=== PATIENT | female | born 1940 | race Caucasian/White ===

== ENCOUNTER 2017-10-04 16:38 | Inpatient (IN) | payer MEDICARE ==
[2017-10-04] MEDS ORDERED: LORazepam 2 MG/ML INJ IV PRN ×2 (16:49)
[2017-10-04] MEDS ORDERED: IPRATROPIUM-ALBUTEROL 3 ML NEB INHALATION STA (16:49)
[2017-10-04] MEDS ORDERED: IPRATROPIUM-ALBUTEROL 3 ML NEB INHALATION PRN (16:49)
[2017-10-04] MEDS ORDERED: MIDAZOLAM 2 MG/2 ML VIAL IV ONE (16:58)
[2017-10-04] MEDS ORDERED: SUCCINYLCHOLINE CHLORIDE VIAL 200 MG/10 ML VIAL IV STA (16:58)
[2017-10-04] MEDS ORDERED: PROPOFOL 1,000 MG in EMPTY BAG 1 BAG IV SCH (17:00)
--- NOTE | 2017-10-04 17:01 | ED ---
General Adult HPI - General Stated complaint: SOB Time Seen by Provider: 10/04/17 16:49 Source: EMS, RN notes reviewed Mode of arrival: EMS Limitations: altered mental status, physical limitation - History of Present Illness Initial comments: Patient is a 77-year-old female presenting to the emergency department by EMS as a priority 1. Patient complain to them of difficulty breathing over the past couple of days but worse today. Patient is on CPAP at this time. Patient is nonverbal and unable to provide no skin history. Patient denies any pain. Patient appears cyanotic and in respiratory distress. - Related Data Home Medications Medication Instructions Recorded Confirmed Albuterol Sulfate [Ventolin HFA] 2 puff INHALATION RT-TID PRN 06/02/15 10/04/17 Calcium Carb-Vit D 500Mg-200Un 1 tab PO DAILY 06/02/15 10/04/17 [Oscal 500+D] Levothyroxine Sodium [Synthroid] 175 mcg PO DAILY 06/02/15 10/04/17 Lisinopril/Hydrochlorothiazide 1 tab PO DAILY 06/02/15 10/04/17 [Lisinopril-Hctz 10-12.5 mg Tab] metFORMIN HCL [Glucophage] 500 mg PO TID 06/02/15 10/04/17 Allopurinol [Zyloprim] 100 mg PO DAILY 10/04/17 10/04/17 Clopidogrel [Plavix] 75 mg PO DAILY 10/04/17 10/04/17 Glimepiride [Amaryl] 4 mg PO AC-BRKFST 10/04/17 10/04/17 Previous Rx's Medication Instructions Recorded Amiodarone [Cordarone] 200 mg PO BID #60 tab 07/31/15 Allergies Allergy/AdvReac Type Severity Reaction Status Date / Time Iodinated Contrast- Oral and Allergy Rash/Hives Verified 10/04/17 18:30 IV Dye [Iodinated Contrast Media - IV Dye] iron AdvReac constipatio Verified 10/04/17 18:30 n methylprednisolone sodium AdvReac Chest Pain Verified 10/04/17 18:30 succinate [From Solu-Medrol] Review of Systems ROS Statement: Those systems with pertinent positive or pertinent negative responses have been documented in the HPI. ROS Other: All systems not noted in ROS Statement are negative. Limitations: ROS unobtainable due to patients medical condition Respiratory: Reports: dyspnea Cardiovascular: Denies: chest pain Past Medical History Past Medical History: Heart Failure, COPD, Diabetes Mellitus, Hyperlipidemia, Pneumonia, Thyroid Disorder History of Any Multi-Drug Resistant Organisms: None Reported Past Surgical History: Unable to Obtain Additional Past Surgical History / Comment(s): Left breast masectomy, Right knee replacement, Past Anesthesia/Blood Transfusion Reactions: No Reported Reaction Past Psychological History: No Psychological Hx Reported Smoking Status: Former smoker Past Alcohol Use History: None Reported Past Drug Use History: None Reported - Past Family History Brother(s) Family Medical History: Cancer Additional Family Medical History / Comment(s): Lung CA Sister(s) Family Medical History: Cancer, Myocardial Infarction ([place]) Additional Family Medical History / Comment(s): breast CA, gastric CA General Exam Limitations: altered mental status, physical limitation General appearance: in distress, obese Head exam: Present: atraumatic Eye exam: Present: normal appearance ENT exam: Present: normal oropharynx Neck exam: Present: normal inspection Respiratory exam: Present: respiratory distress, decreased breath sounds Cardiovascular Exam: Present: tachycardia GI/Abdominal exam: Present: soft. Absent: tenderness Extremities exam: Present: pedal edema. Absent: calf tenderness Neurological exam: Present: alert Psychiatric exam: Present: anxious Skin exam: Present: cyanosis Course Vital Signs 10/04/17 10/04/17 10/04/17 16:41 17:01 17:05 Temperature 96.7 F L Pulse Rate 116 H 125 H 108 H Respiratory 18 18 Rate Blood Pressure 152/74 101/57 O2 Sat by Pulse 56 L 99 Oximetry 10/04/17 10/04/17 17:34 18:16 Temperature Pulse Rate 96 94 Respiratory 18 18 Rate Blood Pressure 96/58 117/62 O2 Sat by Pulse 99 100 Oximetry - Reevaluation(s) Reevaluation #1: 10/04/17 17:51 Patient reevaluated. Friend is present and is updated. Friend will notify daughter. Endotracheal tube will be withdrawn 1 cm. 10/04/17 18:05 Family is now present. Family is updated. Family states patient was being evaluated for a valve problem. They would like her manufacturing engineer supervisor notified and he states has been placed for Dr. Caldwell 10/04/17 18:24 Case was discussed with Dr. Cabral who is covering for Dr. Wilson. He did review patient's previous echo and states patient does have severe mitral valve stenosis. He recommends keeping heart rate down for diastolic filling pressures. He does recommend treating patient aggressively with beta blockers. Previous ejection fraction was 60%. 10/04/17 18:41 Case was discussed with Dr. Walsh, who will admit for hospital call. Family states patient no longer sees Dr. Reyes. Case was discussed with Dr. Medina who will consult on this patient. He has previously seen this patient. Patient was reevaluated. Family was updated. EKG Findings - EKG Comments: EKG Findings:: Sinus tachycardia 102. AL 182. QRS 90. QT 386. QTc 503. Normal axis. Normal QRS. No acute ST change. Procedures - ABG Interpretation Ph: 7.24 PCO2: 72.1 PO2: 306 Bicarbonate: 29 Interpretation: respiratory acidosis Medical Decision Making - Lab Data Result diagrams: 10/04/17 16:48 10/04/17 16:48 Lab Results 10/04/17 10/04/17 10/04/17 Range/Units 16:48 16:48 16:48 WBC 18.1 H (3.8-10.6) k/uL RBC 4.19 (3.80-5.40) m/uL Hgb 12.3 (11.4-16.0) gm/dL Hct 41.7 (34.0-46.0) % MCV 99.6 (80.0-100.0) fL MCH 29.4 (25.0-35.0) pg MCHC 29.5 L (31.0-37.0) g/dL RDW 16.4 H (11.5-15.5) % Plt Count 359 (150-450) k/uL Neutrophils % 65 % Lymphocytes % 24 % Monocytes % 6 % Eosinophils % 2 % Basophils % 1 % Neutrophils # 11.8 H (1.3-7.7) k/uL Lymphocytes # 4.3 (1.0-4.8) k/uL Monocytes # 1.1 H (0-1.0) k/uL Eosinophils # 0.4 (0-0.7) k/uL Basophils # 0.2 (0-0.2) k/uL Hypochromasia Marked Anisocytosis Slight Macrocytosis Slight PT (9.0-12.0) sec INR (<1.2) APTT (22.0-30.0) sec Sample Site ABG pH (7.35-7.45) ABG pCO2 (35-45) mmHg ABG pO2 (83-108) mmHg ABG HCO3 (21-25) mmol/L ABG Total CO2 (19-24) mmol/L ABG O2 Saturation (94-97) % ABG Base Excess mmol/L Jun Test FiO2 % Sodium 144 (137-145) mmol/L Potassium 5.2 H (3.5-5.1) mmol/L Chloride 104 (98-107) mmol/L Carbon Dioxide 28 (22-30) mmol/L Anion Gap 12 mmol/L BUN 22 H (7-17) mg/dL Creatinine 1.15 H (0.52-1.04) mg/dL Est GFR (MDRD) Af Amer 56 (>60 ml/min/1.73 sqM) Est GFR (MDRD) Non-Af 46 (>60 ml/min/1.73 sqM) Glucose 207 H (74-99) mg/dL Calcium 9.3 (8.4-10.2) mg/dL Total Bilirubin 0.7 (0.2-1.3) mg/dL AST 30 (14-36) U/L ALT 33 (9-52) U/L Alkaline Phosphatase 68 (38-126) U/L Total Creatine Kinase 40 (30-135) U/L CK-MB (CK-2) 0.9 (0.0-2.4) ng/mL CK-MB (CK-2) Rel Index 2.3 Troponin I <0.012 (0.000-0.034) ng/mL NT-Pro-B Natriuret Pep pg/mL Total Protein 7.5 (6.3-8.2) g/dL Albumin 4.2 (3.5-5.0) g/dL 10/04/17 10/04/17 10/04/17 Range/Units 16:48 16:48 17:44 WBC (3.8-10.6) k/uL RBC (3.80-5.40) m/uL Hgb (11.4-16.0) gm/dL Hct (34.0-46.0) % MCV (80.0-100.0) fL MCH (25.0-35.0) pg MCHC (31.0-37.0) g/dL RDW (11.5-15.5) % Plt Count (150-450) k/uL Neutrophils % % Lymphocytes % % Monocytes % % Eosinophils % % Basophils % % Neutrophils # (1.3-7.7) k/uL Lymphocytes # (1.0-4.8) k/uL Monocytes # (0-1.0) k/uL Eosinophils # (0-0.7) k/uL Basophils # (0-0.2) k/uL Hypochromasia Anisocytosis Macrocytosis PT 11.2 (9.0-12.0) sec INR 1.2 H (<1.2) APTT 23.4 (22.0-30.0) sec Sample Site LBRAC ABG pH 7.24 L (7.35-7.45) ABG pCO2 72 H* (35-45) mmHg ABG pO2 306 H (83-108) mmHg ABG HCO3 30 H (21-25) mmol/L ABG Total CO2 32 H (19-24) mmol/L ABG O2 Saturation 100.0 H (94-97) % ABG Base Excess 2.7 mmol/L Jun Test Yes FiO2 100 % Sodium (137-145) mmol/L Potassium (3.5-5.1) mmol/L Chloride (98-107) mmol/L Carbon Dioxide (22-30) mmol/L Anion Gap mmol/L BUN (7-17) mg/dL Creatinine (0.52-1.04) mg/dL Est GFR (MDRD) Af Amer (>60 ml/min/1.73 sqM) Est GFR (MDRD) Non-Af (>60 ml/min/1.73 sqM) Glucose (74-99) mg/dL Calcium (8.4-10.2) mg/dL Total Bilirubin (0.2-1.3) mg/dL AST (14-36) U/L ALT (9-52) U/L Alkaline Phosphatase (38-126) U/L Total Creatine Kinase (30-135) U/L CK-MB (CK-2) (0.0-2.4) ng/mL CK-MB (CK-2) Rel Index Troponin I (0.000-0.034) ng/mL NT-Pro-B Natriuret Pep 1010 pg/mL Total Protein (6.3-8.2) g/dL Albumin (3.5-5.0) g/dL - Radiology Data Radiology results: image reviewed (Stray shows pulmonary edema. Endotracheal tube is somewhat low.) Critical Care Time Critical Care Time: Yes Total Critical Care Time: 40 Disposition Clinical Impression: Severe mitral valve stenosis, Acute exacerbation of chronic obstructive airways disease, Acute respiratory failure, Pulmonary edema Disposition: ADMITTED IP TO [facility] Condition: Critical Referrals: Nonstaff,Physician [Primary Care Provider] - 1-2 days Decision Time: 18:42
[2017-10-04] MEDS: PROPOFOL 1,000 MG in EMPTY BAG 1 BAG IV SCH ×2 (17:10→22:27)
--- NOTE | 2017-10-04 17:31 | XR ---
EXAMINATION TYPE: XR chest 1V portable DATE OF EXAM: 10/04/2017 COMPARISON: 07/28/2015 HISTORY: Post intubation TECHNIQUE: Single frontal view of the chest is obtained. FINDINGS: Endotracheal tube is slightly low and measures 2.5 cm from the eladio. Pulmonary interstit ial and alveolar edema. Heart is probably enlarged. There are chest leads. IMPRESSION: Endotracheal tube is low and could be pulled back 1 to 2 cm. There is new pulmonary kelechi a compared to last exam.
[2017-10-04 17:49] LABS: Anisocytosis Slight; Basophils # (A) 0.2 k/uL (0-0.2); Basophils % (A) 1 %; Eosinophils # (A) 0.4 k/uL (0-0.7); Eosinophils % (A) 2 %; HCT 41.7 % (34.0-46.0); HGB 12.3 gm/dL (11.4-16.0); Hypochromasia Marked; Lymphocytes # (A) 4.3 k/uL (1.0-4.8); Lymphocytes % (A) 24 %; MCH 29.4 pg (25.0-35.0); MCHC 29.5 g/dL (31.0-37.0); MCV 99.6 fL (80.0-100.0); Macrocytosis Slight; Mean Platelet Volume 7.8; Monocytes # (A) 1.1 k/uL (0-1.0); Monocytes % (A) 6 %; Neutrophils # (A) 11.8 k/uL (1.3-7.7); Neutrophils % (A) 65 %; Platelet Count 359 k/uL (150-450); RBC 4.19 m/uL (3.80-5.40); RDW 16.4 % (11.5-15.5); WBC 18.1 k/uL (3.8-10.6)
[2017-10-04] MEDS ORDERED: FUROSEMIDE 10 MG/ML 2 ML VIAL IV ONE (17:53)
[2017-10-04 17:55] LABS: Albumin 4.2 g/dL (3.5-5.0); Calcium 9.3 mg/dL (8.4-10.2); Total Bilirubin 0.7 mg/dL (0.2-1.3); Total Protein 7.5 g/dL (6.3-8.2)
[2017-10-04 17:56] LABS: INR 1.2 (<1.2); Partial Thromboplastin Time 23.4 sec (22.0-30.0); Potassium 5.2 mmol/L (3.5-5.1); Prothrombin Time 11.2 sec (9.0-12.0)
[2017-10-04 17:57] LABS: ABG Base Excess 2.7 mmol/L; ABG HCO3 30 mmol/L (21-25); ABG PCO2 72 mmHg (35-45); ABG PH 7.24 (7.35-7.45); ABG PO2 306 mmHg (83-108); ABG TCO2 32 mmol/L (19-24)
[2017-10-04 18:00] LABS: Creatine Kinase 40 U/L (30-135)
[2017-10-04 18:11] LABS: Creatine Kinase MB 0.9 ng/mL (0.0-2.4); Troponin I <0.012 ng/mL (0.000-0.034)
[2017-10-04] MEDS ORDERED: NALOXONE 0.4 MG/ML 1 ML VIAL IV PRN ×2 (18:42→21:16)
[2017-10-04] MEDS ORDERED: ASPIRIN 325 MG TAB PO STA (18:45)
[2017-10-04] MEDS: SODIUM CHLORIDE 0.9% 1,000 ML IV SCH (19:25)
[2017-10-04] MEDS: METOPROLOL TARTRATE 50 MG TAB PO SCH (19:25)
[2017-10-04 19:52] LABS: Appearance,Urine Cloudy (Clear); Bacteria,Urine Many /hpf; Bilirubin,Urine Negative (Negative); Blood,Urine Negative (Negative); Color,Urine Yellow; Glucose,Urine (UA) Negative (Negative); Ketones,Urine Trace (Negative); Leukocyte Esterase,Urine Moderate (Negative); Mucus,Urine Many /hpf; Nitrite,Urine Negative (Negative); PH, Urine 5.5 (5.0-8.0); Protein,Urine 1+ (Negative); Specific Gravity,Urine 1.019 (1.001-1.035); Urobilinogen,Urine <2.0 mg/dL (<2.0); WBC,Urine 3 /hpf (0-5)
[2017-10-04] MEDS: NITROGLYCERIN OINT 1 INCH/GM PACKET TOPICAL SCH (20:34)
[2017-10-04] MEDS: IPRATROPIUM-ALBUTEROL 3 ML NEB INHALATION SCH ×2 (21:02→22:59)
[2017-10-04] MEDS ORDERED: ARTIFICIAL TEARS OINTMENT 3.5 GM TUBE BOTH EYES PRN (21:16)
[2017-10-04] MEDS ORDERED: ACETAMINOPHEN TAB 325 MG TAB OG-TUBE PRN (21:16)
[2017-10-04] MEDS ORDERED: INSULIN ASPART 100 UNIT/ML 1 ML 10 ML VIAL SQ SCH (21:30)
[2017-10-04 21:37] LABS: Glucose,Whole Blood 160 mg/dL (75-99)
--- NOTE | 2017-10-04 21:45 | P.HPIM ---
History of Present Illness H&P Date: 10/04/17 (delayed charting seen at 0815pm) Chief Complaint: hypoxia Patient is a 77-year-old female with a history of diastolic congestive heart failure, pulmonary hypertension, and severe mitral stenosis along with COPD who presented to the hospital via EMS for shortness of breath. When she arrived via EMS her oxygen saturation was 56% on CPAP. She was immediately intubated. Laboratory analysis revealed a white blood cell count of 18.1. INR 1.2. Potassium 5.2. Her creatinine was 1.15 which appeared to be at baseline and glucose was slightly elevated at 207. Chest x-ray revealed diffuse pulmonary edema. Urinalysis was negative. ABG revealed hypercapnic respiratory failure. She was given a dose of Lasix, Nitro-Bid, and aspirin. Her family requested contacting her primary balance wheel arm burnisher Dr. Caldwell they were able to contact Dr. Crabtree who was on coverage for him who recommended maximizing beta johanna therapy. They also contacted Dr. Medina who was in agreement with admission to the ICU. Patient's daughter and granddaughter were at bedside. They were not there when patient called EMS. They report that she is having significant shortness of breath limiting her baseline activities worsening for the last 2 weeks. She has also had increasing lower extremity edema. She typically wears oxygen at home at 3.5 L but she has been turning it up to 5 L to help. She is only able to ambulate a short distance before becoming extremely winded. She has been sleeping in a recliner at home. She also has a chronic cough. They report that she is supposed to be going in for evaluation of possible mitral valve replacement due to severe mitral stenosis. They report she has not seen her balance wheel arm burnisher or primary care provider since things have been worsening in the last 2 weeks. They believe that there has been no acute changes in her medications. They would like her transferred to a hospital in Dr. Caldwell practices out of. We discussed that with her being recently intubated she is not stable enough for elective transfer at this point in time. They are in agreement with the plan to keep her here at this point. They do again reiterate that once she is stable they would like her transferred. Review of Systems Patient is currently intubated and therefore review of systems was unable to be obtained ROS unobtainable: due to endotracheal tube Past Medical History Past Medical History: Coronary Artery Disease (CAD), Heart Failure, COPD, Diabetes Mellitus, Hyperlipidemia, Pneumonia, Thyroid Disorder History of Any Multi-Drug Resistant Organisms: None Reported Additional Past Surgical History / Comment(s): Left breast masectomy, Right knee replacement, cardiac cath Past Anesthesia/Blood Transfusion Reactions: No Reported Reaction Date of Last Stent Placement:: Jul 2016 Past Psychological History: No Psychological Hx Reported Smoking Status: Former smoker Past Alcohol Use History: None Reported Past Drug Use History: None Reported Additional History: Just quit smoking 09/23/2017, lives alone, uses home O2 at 3.5-5L, uses a 4 wheeled walker - Past Family History Brother(s) Family Medical History: Cancer Additional Family Medical History / Comment(s): Lung CA Sister(s) Family Medical History: Cancer, Myocardial Infarction ([place]) Additional Family Medical History / Comment(s): breast CA, gastric CA Medications and Allergies Home Medications Medication Instructions Recorded Confirmed Type Albuterol Sulfate [Ventolin HFA] 2 puff INHALATION RT-TID PRN 06/02/15 10/04/17 History Calcium Carb-Vit D 500Mg-200Un 1 tab PO DAILY 06/02/15 10/04/17 History [Oscal 500+D] Levothyroxine Sodium [Synthroid] 175 mcg PO DAILY 06/02/15 10/04/17 History Lisinopril/Hydrochlorothiazide 1 tab PO DAILY 06/02/15 10/04/17 History [Lisinopril-Hctz 10-12.5 mg Tab] metFORMIN HCL [Glucophage] 500 mg PO TID 06/02/15 10/04/17 History Amiodarone [Cordarone] 200 mg PO BID #60 tab 07/31/15 10/04/17 Rx Allopurinol [Zyloprim] 100 mg PO DAILY 10/04/17 10/04/17 History Clopidogrel [Plavix] 75 mg PO DAILY 10/04/17 10/04/17 History Glimepiride [Amaryl] 4 mg PO AC-BRKFST 10/04/17 10/04/17 History Allergies Allergy/AdvReac Type Severity Reaction Status Date / Time Iodinated Contrast- Oral and Allergy Rash/Hives Verified 10/04/17 18:30 IV Dye [Iodinated Contrast Media - IV Dye] iron AdvReac constipatio Verified 10/04/17 18:30 n methylprednisolone sodium AdvReac Chest Pain Verified 10/04/17 18:30 succinate [From Solu-Medrol] Physical Exam Osteopathic Statement: *. No significant issues noted on an osteopathic structural exam other than those noted in the History and Physical/Consult. Vitals: Vital Signs Temp Pulse Resp BP Pulse Ox 10/04/17 21:00 66 18 106/65 100 10/04/17 20:32 64 18 101/60 100 10/04/17 20:01 97 18 97/63 99 10/04/17 19:58 65 18 93/59 99 10/04/17 19:34 79 16 99/59 98 10/04/17 19:12 85 16 100/63 99 10/04/17 18:16 98 18 115/66 99 10/04/17 17:34 96 18 96/58 99 10/04/17 17:05 108 H 10/04/17 17:01 96.7 F L 125 H 18 101/57 99 10/04/17 16:55 30 H 10/04/17 16:41 116 H 18 152/74 56 L Intake and Output 10/04/17 10/04/17 10/04/17 06:59 14:59 22:59 Intake Total 22.276 Balance 22.276 Intake: Intake, IV Titration 22.276 Amount Propofol 1,000 mg In 22.276 Empty Bag 1 bag @ Titrate IV .[facility] Rx#: [id number] Other: Weight 97.522 kg Patient Weight 10/05/17 06:59 Weight 97.522 kg General: ill appearing , moderate distress, appears at stated age, obese Derm: no unusual rashes/lesions no unusual ecchymoses, warm, dry Head: atraumatic, normocephalic, symmetric Eyes: anicteric sclera, pupils equal round reactive to light ENT: Nose and ears atraumatic, ET tube in place Neck: No thyromegaly, no cervical lymphadenopathy, trachea midline, supple Mouth: no lip lesion, mucus membranes moist Cardiovascular: S1S2 reg, with systolic murmur, positive posterior tibial pulse bilateral, 2+ edema, capillary refill less than 2 seconds Lungs: course bs b/l, no accessory muscle use, on vent Abdominal: soft, nontender to palpation, no guarding, no appreciable organomegaly, normal bowel sounds Ext: no gross muscle atrophy, no contractures, Neuro: grimices to pain, withdrawal to pain in b/l UE Psych: sedated on vent Results CBC & Chem 7: 10/04/17 16:48 10/04/17 16:48 Labs: Abnormal Lab Results - Last 24 Hours (Table) 10/04/17 10/04/17 10/04/17 Range/Units 16:48 16:48 16:48 WBC 18.1 H (3.8-10.6) k/uL MCHC 29.5 L (31.0-37.0) g/dL RDW 16.4 H (11.5-15.5) % Neutrophils # 11.8 H (1.3-7.7) k/uL Monocytes # 1.1 H (0-1.0) k/uL INR 1.2 H (<1.2) ABG pH (7.35-7.45) ABG pCO2 (35-45) mmHg ABG pO2 (83-108) mmHg ABG HCO3 (21-25) mmol/L ABG Total CO2 (19-24) mmol/L ABG O2 Saturation (94-97) % Potassium 5.2 H (3.5-5.1) mmol/L BUN 22 H (7-17) mg/dL Creatinine 1.15 H (0.52-1.04) mg/dL Glucose 207 H (74-99) mg/dL Urine Appearance (Clear) Urine Protein (Negative) Urine Ketones (Negative) Ur Leukocyte Esterase (Negative) Urine Bacteria (None) /hpf Urine Mucus (None) /hpf 10/04/17 10/04/17 Range/Units 17:44 19:40 WBC (3.8-10.6) k/uL MCHC (31.0-37.0) g/dL RDW (11.5-15.5) % Neutrophils # (1.3-7.7) k/uL Monocytes # (0-1.0) k/uL INR (<1.2) ABG pH 7.24 L (7.35-7.45) ABG pCO2 72 H* (35-45) mmHg ABG pO2 306 H (83-108) mmHg ABG HCO3 30 H (21-25) mmol/L ABG Total CO2 32 H (19-24) mmol/L ABG O2 Saturation 100.0 H (94-97) % Potassium (3.5-5.1) mmol/L BUN (7-17) mg/dL Creatinine (0.52-1.04) mg/dL Glucose (74-99) mg/dL Urine Appearance Cloudy H (Clear) Urine Protein 1+ H (Negative) Urine Ketones Trace H (Negative) Ur Leukocyte Esterase Moderate H (Negative) Urine Bacteria Many H (None) /hpf Urine Mucus Many H (None) /hpf Comments: EKG is reviewed by myself reveals sinus tachycardia at a rate of [address]-T wave changes. Chest x-ray: report reviewed, image reviewed Thrombosis Risk Factor Assmnt - DVT/VTE Prophylaxis DVT/VTE Prophylaxis: Pharmacologic Prophylaxis ordered Assessment and Plan Assessment: Acute exacerbation of cor pulmonale with severe mitral stenosis - lasix 40 twice daily - netoprolol per her outpatient cardiology recs to ED physicians - hold ACEI with increased K+ likely can resume tomorrow - strict I and O - daily weights - cardio consult - check echo - Family wants patient transferred to a facility where her primary balance wheel arm burnisher Dajuan Caldwell, DO practices, we discusssed delaying this until the patient is more stable and they are in agreement. Acute on chronic hypoxic/ hypercapnic respiratory fialure - secondary to above - vent management per critical care -Treatment as outlined above COPD, without acute exacerbation - duonbes - prn bronchodilators - no indication for steroid at this time Leukocytosis -Suspect reactive with pulmonary edema on chest x-ray -Repeat CBC in a.m. and chest x-ray in a.m. -Urinalysis without signs of infection Diabetes mellitus type 2 -Hold orals -Sliding-scale insulin -Accu-Cheks -Hemoglobin A1c HTN, controlled - hold ACEI and HCTZ - on metroprolol and lasix - follow blood pressures Hypothyroidism - check TSH - synthroid CKD 3 at baseline with borderline hyperkalemia - hold ACEI - follow BMP when on IV lasix - avoid additional nephrotoxic agents ASCAD with hx of PCI - ASA, plavix Obesity, BMI 36.9 -Structured outpatient weight loss Surrogate decision-maker: daughter Alisia Fisher CODE STATUS:full DVT prophylaxis: lovenox Discussed with: patient family, ED physician Anticipated discharge: undetermined Anticipated discharge place: undetermined A total of 75 minutes was spent on the care of this complex patient more than 50 % of the time was spent in counseling and care coordination.
[2017-10-05] MEDS ORDERED: FUROSEMIDE 10 MG/ML 4 ML VIAL IV SCH
[2017-10-05] MEDS ORDERED: SODIUM CHLORIDE 0.9% 500 ML IV ONE (00:01)
[2017-10-05] MEDS: NITROGLYCERIN OINT 1 INCH/GM PACKET TOPICAL SCH (01:33)
[2017-10-05] MEDS: METOPROLOL TARTRATE 50 MG TAB PO SCH ×4 (01:33→22:19)
[2017-10-05] MEDS ORDERED: NOREPINEPHRIN 4 MG-0.9% NS PMX 4 MG/250 ML ML IV SCH (02:30)
[2017-10-05] MEDS: IPRATROPIUM-ALBUTEROL 3 ML NEB INHALATION SCH ×6 (03:07→23:12)
[2017-10-05] MEDS: PROPOFOL 1,000 MG in EMPTY BAG 1 BAG IV SCH ×2 (04:00→09:16)
[2017-10-05 04:34] LABS: ABG HCO3 30 mmol/L (21-25); ABG PCO2 45 mmHg (35-45); ABG PH 7.44 (7.35-7.45); ABG PO2 86 mmHg (83-108); ABG TCO2 32 mmol/L (19-24)
[2017-10-05 04:42] LABS: Basophils % (A) 0 %; Eosinophils # (A) 0.1 k/uL (0-0.7); Eosinophils % (A) 0 %; HCT 34.3 % (34.0-46.0); HGB 10.5 gm/dL (11.4-16.0); Hypochromasia Slight; Lymphocytes # (A) 1.3 k/uL (1.0-4.8); Lymphocytes % (A) 10 %; MCHC 30.6 g/dL (31.0-37.0); Mean Platelet Volume 8.2; Monocytes # (A) 0.7 k/uL (0-1.0); Monocytes % (A) 5 %; Neutrophils # (A) 11.1 k/uL (1.3-7.7); Neutrophils % (A) 83 %; Platelet Count 260 k/uL (150-450); RBC 3.63 m/uL (3.80-5.40); WBC 13.4 k/uL (3.8-10.6)
[2017-10-05 04:51] LABS: Magnesium 1.9 mg/dL (1.6-2.3); Phosphorus 4.7 mg/dL (2.5-4.5); Potassium 4.4 mmol/L (3.5-5.1)
[2017-10-05 05:04] LABS: MCV 94.6 fL (80.0-100.0)
[2017-10-05] MEDS: LEVOTHYROXINE 75 MCG TAB PO SCH (06:22)
[2017-10-05] MEDS: LEVOTHYROXINE 100 MCG TAB PO SCH (06:22)
[2017-10-05 06:24] LABS: Glucose,Whole Blood 136 mg/dL (75-99)
[2017-10-05] MEDS: INSULIN ASPART 100 UNIT/ML 1 ML 10 ML VIAL SQ SCH ×3 (06:25→19:42)
--- NOTE | 2017-10-05 07:15 | XR ---
EXAMINATION TYPE: XR chest 1V portable DATE OF EXAM: 10/05/2017 HISTORY: Tube placement. REFERENCE: Previous study dated 10/04/2017. FINDINGS: The patient is ET tube remains in place in good position. An NG tube is been passed. Its ti p extends beyond the level of the diaphragm but is not clearly visualized. The heart is mildly enlarged. There is right basilar airspace disease. There are bilateral effusions, greater on the right than the left. There is vascular congestion and subtle interstitial change. IMPRESSION: 1. CONTINUING CHANGES OF PULMONARY EDEMA. 2. WORSENING RIGHT-SIDED EFFUSION. 3. RIGHT BASILAR AIRSPACE DISEASE.
[2017-10-05] MEDS ORDERED: CHLORHEXIDINE GLUCONATE 15 ML CUP MUCOUS MEM SCH (09:00)
[2017-10-05] MEDS: MAGNESIUM SULFATE-D5W PMX 1 GM in DEXTROSE/WATER 1 100ML.BAG IVPB SCH ×2 (09:23→13:24)
[2017-10-05] MEDS: ALLOPURINOL 100 MG TAB PO SCH (09:23)
[2017-10-05] MEDS: PANTOPRAZOLE 40 MG/10 ML VIAL IV SCH (09:24)
[2017-10-05] MEDS: FUROSEMIDE 10 MG/ML 4 ML VIAL IV SCH ×2 (09:24→20:07)
[2017-10-05] MEDS: CLOPIDOGREL 75 MG TAB PO SCH ×2 (09:24→09:29)
[2017-10-05] MEDS: ENOXAPARIN 40 MG/0.4 ML SYRINGE SQ SCH (09:24)
[2017-10-05] MEDS: DOCUSATE 100 MG CAP PO SCH ×2 (09:42→20:07)
[2017-10-05] MEDS: AMIODARONE 200 MG TAB PO SCH ×2 (09:42→20:07)
--- NOTE | 2017-10-05 10:08 | CONS ---
CONSULTATION Mrs. Fisher is a 77-year-old female who presented with symptoms of progressive dyspnea. She has a known history of severe mitral stenosis that was documented in the past and has been followed apparently by Dr. Caldwell and was scheduled to undergo evaluation by surgeon for mitral valve replacement. The history is obtained from the notes and from the nursing staff. The patient became quite dyspneic, came into emergency room with pulmonary edema and was intubated. She is intubated and sedated at this time on low-dose norepinephrine. She is in sinus mechanism. I have no results of any recent cardiac workup. I have no documentation of prior history of ischemic heart disease. The last time she was admitted to our hospital was in June of 2015. Her coronary risk factors are positive for diabetes, hypertension. Her lipid profile is not available to me. Her medication as an outpatient include Amaryl, Plavix 75 mg daily, Glucophage 5 mg 3 times a day, lisinopril, amiodarone 200 mg twice a day, and albuterol and levothyroxine. Review of system is not available. PHYSICAL EXAMINATION: She is a 77-year-old female, intubated and sedated. Her blood pressure running in the 100 with a heart rate in the 70s on low-dose norepinephrine. HEAD: Normocephalic. EYES: Sclerae anicteric. NECK: No bruit appreciated. LUNGS: Clear to auscultation anteriorly. HEART: Regular rate and rhythm, S1, S2. No S3 with systolic murmur at the apex and a diastolic rumble noted. ABDOMEN: Soft, obese, no organomegaly. Positive bowel sounds. EXTREMITIES: No significant edema. +1 distal pulses. LAB DATA: Lab data revealed a hemoglobin of 10.5, white blood cell 13.4, pH 7.4, PO2 of 86, BUN and creatinine 24 and 1.35, TSH of 1.94. EKG on presentation shows sinus tachycardia, rate of 102. Chest x-ray on presentation was consistent with pulmonary edema. IMPRESSION: 1. Respiratory failure with pulmonary edema in a patient with history of severe mitral stenosis, apparently being evaluated for surgical intervention. 2. History of diabetes. 3. I assume she has a history of arrhythmia and that is why she is on amiodarone, although I do not have that data is available to me. RECOMMENDATION: From the cardiac standpoint, we will continue intravenous diuresis for 24 hours. I am hopeful that her lung status stabilizes now that her heart rate is on the slower side. We should be able to wean her and extubate her and subsequently she will follow up with her primary manager environmental services to proceed with the scheduled intervention. Her chest x-ray this morning shows improvement in her edema. Thank you for this consult. We will follow with you. JENNIFER / LIANE: [phone] /
[2017-10-05] MEDS ORDERED: ASPIRIN 325 MG TAB PO SCH (12:00)
[2017-10-05 12:08] LABS: Glucose,Whole Blood 143 mg/dL (75-99)
[2017-10-05] MEDS: ASPIRIN 81 MG PO SCH (12:09)
[2017-10-05 13:15] LABS: ABG HCO3 30 mmol/L (21-25); ABG PCO2 39 mmHg (35-45); ABG PO2 190 mmHg (83-108); ABG TCO2 31 mmol/L (19-24)
--- NOTE | 2017-10-05 13:49 | P.CNPUL ---
History of Present Illness Consult date: 10/05/17 Reason for consult: dyspnea, hypoxemia Chief complaint: Acute onset of shortness of breath with slow worsening over 7 to 10 days History of present illness: Patient is a 77-year-old female with a history of diastolic congestive heart failure, pulmonary hypertension, and severe mitral stenosis along with COPD who presented to the hospital via EMS for shortness of breath. When she arrived via EMS her oxygen saturation was 56% on CPAP. She was immediately intubated. Laboratory analysis revealed a white blood cell count of 18.1. INR 1.2. Potassium 5.2. Her creatinine was 1.15 which appeared to be at baseline and glucose was slightly elevated at 207. Chest x-ray revealed diffuse pulmonary edema. Urinalysis was negative. ABG revealed hypercapnic respiratory failure. She was given a dose of Lasix, Nitro-Bid, and aspirin. Patient has been admitted to ICU with full respiratory support I reviewed the radiographic finding from yesterday and today and compared, it appears that patient was in good state of health until about the recent event of acute onset of shortness of breath there was no history of night sweats or fever or chills no history of respiratory process, patient has a history of severe degree of mitral stenosis she is being evaluated for mitral valve replacement at [facility]. Patient's primary pusher operator has been contacted by the ER physician who advised patient to be stabilized before consideration of transfer She typically wears oxygen at home at 3.5 L but she has been turning it up to 5 L to help. She is only able to ambulate a short distance before becoming extremely winded. She has been sleeping in a recliner at home. She also has a chronic cough. They report that she is supposed to be going in for evaluation of possible mitral valve replacement due to severe mitral stenosis. They report she has not seen her pusher operator or primary care provider since things have been worsening in the last 2 weeks. They believe that there has been no acute changes in her medications. They would like her transferred to a hospital in [facility] out of. We discussed that with her being recently intubated she is not stable enough for elective transfer at this point in time. They are in agreement with the plan to keep her here at this point. They do again reiterate that once she is stable they would like her transferred. Review of Systems ROS unobtainable: due to endotracheal tube All systems: negative Past Medical History Past Medical History: Coronary Artery Disease (CAD), Heart Failure, COPD, Diabetes Mellitus, Hyperlipidemia, Pneumonia, Thyroid Disorder History of Any Multi-Drug Resistant Organisms: None Reported Past Surgical History: Unable to Obtain Additional Past Surgical History / Comment(s): Left breast masectomy, Right knee replacement, cardiac cath Past Anesthesia/Blood Transfusion Reactions: Previous Problems w/ Anesthesia, Postoperative Nausea & Vomiting (PONV) Date of Last Stent Placement:: Jul 2016 Past Psychological History: No Psychological Hx Reported Smoking Status: Former smoker Past Alcohol Use History: None Reported Past Drug Use History: None Reported - Past Family History Brother(s) Family Medical History: Cancer Additional Family Medical History / Comment(s): Lung CA Sister(s) Family Medical History: Cancer, Myocardial Infarction (DE) Additional Family Medical History / Comment(s): breast CA, gastric CA Medications and Allergies Home Medications Medication Instructions Recorded Confirmed Type Albuterol Sulfate [Ventolin HFA] 2 puff INHALATION RT-TID PRN 06/02/15 10/04/17 History Calcium Carb-Vit D 500Mg-200Un 1 tab PO DAILY 06/02/15 10/04/17 History [Oscal 500+D] Levothyroxine Sodium [Synthroid] 175 mcg PO DAILY 06/02/15 10/04/17 History Lisinopril/Hydrochlorothiazide 1 tab PO DAILY 06/02/15 10/04/17 History [Lisinopril-Hctz 10-12.5 mg Tab] metFORMIN HCL [Glucophage] 500 mg PO TID 06/02/15 10/04/17 History Amiodarone [Cordarone] 200 mg PO BID #60 tab 07/31/15 10/04/17 Rx Allopurinol [Zyloprim] 100 mg PO DAILY 10/04/17 10/04/17 History Clopidogrel [Plavix] 75 mg PO DAILY 10/04/17 10/04/17 History Glimepiride [Amaryl] 4 mg PO AC-[id number] 10/04/17 10/04/17 History Allergies Allergy/AdvReac Type Severity Reaction Status Date / Time Iodinated Contrast- Oral and Allergy Rash/Hives Verified 10/04/17 18:30 IV Dye [Iodinated Contrast Media - IV Dye] iron AdvReac constipatio Verified 10/04/17 18:30 n methylprednisolone sodium AdvReac Chest Pain Verified 10/04/17 18:30 succinate [From [facility]] Physical Exam Vitals: Vital Signs Temp Pulse Resp BP Pulse Ox 10/05/17 13:00 104 H 73 H 141/70 94 L 10/05/17 12:45 103 H 37 H 124/67 94 L 10/05/17 12:30 90 27 H 112/71 96 10/05/17 12:15 89 18 119/63 98 10/05/17 12:00 99.6 F 92 18 123/72 99 10/05/17 11:45 85 18 119/66 99 10/05/17 11:30 84 18 119/69 100 10/05/17 11:16 83 10/05/17 11:15 85 19 126/70 99 10/05/17 11:06 86 10/05/17 11:00 88 18 112/63 98 10/05/17 10:45 83 18 122/70 99 10/05/17 10:30 80 19 119/70 99 10/05/17 10:15 80 18 120/75 100 10/05/17 10:00 79 18 105/75 100 10/05/17 09:45 73 18 102/64 99 10/05/17 09:30 70 18 92/54 97 10/05/17 09:15 73 18 91/52 98 10/05/17 09:00 78 18 90/54 98 10/05/17 08:45 73 18 101/61 98 10/05/17 08:30 72 18 101/61 98 10/05/17 08:15 73 30 H 104/63 99 10/05/17 08:00 98.6 F 80 26 H 104/63 100 10/05/17 07:45 73 18 99/57 99 10/05/17 07:44 76 10/05/17 07:34 75 06 07:30 73 18 99/57 98 10/05/17 07:15 75 18 106/67 98 10/05/17 07:00 75 18 106/67 99 10/05/17 06:30 73 18 103/59 96 10/05/17 06:00 73 18 94/59 99 10/05/17 05:30 76 18 108/64 98 10/05/17 05:00 79 18 117/66 100 10/05/17 04:30 73 18 101/60 100 10/05/17 04:00 68 18 91/56 99 10/05/17 03:45 98.7 F 67 18 86/53 99 10/05/17 03:30 65 18 92/56 98 10/05/17 03:17 66 10/05/17 03:15 66 18 93/54 100 10/05/17 03:07 68 10/05/17 03:00 66 18 91/55 98 10/05/17 02:45 66 18 87/53 98 10/05/17 02:30 67 18 87/55 97 10/05/17 02:15 67 18 84/51 97 10/05/17 02:00 68 18 83/49 96 10/05/17 01:45 68 18 86/52 96 10/05/17 01:30 67 18 86/55 96 10/05/17 01:15 68 18 87/50 95 10/05/17 01:00 68 18 86/54 98 10/05/17 00:45 69 18 87/56 98 10/05/17 00:30 68 18 91/55 98 10/05/17 00:15 97.7 F 69 18 96/57 99 10/05/17 00:00 69 18 90/52 99 10/04/17 23:45 66 18 87/55 98 10/04/17 23:30 66 18 85/54 97 10/04/17 23:15 65 18 91/57 97 10/04/17 23:08 64 10/04/17 23:00 62 18 79/48 98 10/04/17 22:59 63 10/04/17 22:45 63 18 91/56 97 10/04/17 22:30 63 18 78/50 97 10/04/17 22:15 64 18 78/49 98 10/04/17 22:00 65 18 77/50 98 10/04/17 21:45 97.9 F 66 18 131/99 99 10/04/17 21:00 66 18 106/65 100 10/04/17 20:32 64 18 101/60 100 10/04/17 20:01 97 18 97/63 99 10/04/17 19:58 65 18 93/59 99 01/05/18 19:34 79 16 99/59 98 10/04/17 19:12 85 16 100/63 99 10/04/17 18:16 98 18 115/66 99 10/04/17 17:34 96 18 96/58 99 10/04/17 17:05 108 H 10/04/17 17:01 96.7 F L 125 H 18 101/57 99 10/04/17 16:55 30 H 10/04/17 16:41 116 H 18 152/74 56 L Intake and Output 10/04/17 10/05/17 10/05/17 22:59 06:59 14:59 Intake Total 331.069 487.403 531.290 Output Total 100 750 795 Balance 231.069 -262.597 -263.710 Intake: IV 250 390 240 Magnesium Sulfate-D5w Pmx 100 1 gm In Dextrose/Water 1 100ml.bag @ 100 mls/hr IVPB Q1H [facility] Rx#: [id number] Sodium Chloride 0.9% 1, 140 140 000 ml @ 20 mls/hr IV . Q24H [facility] Rx#:[id number] Sodium Chloride 0.9% 500 250 250 ml @ 250 mls/hr IV .Q2H [facility] Rx#:[id number] Intake, IV Titration 81.069 97.403 176.290 Amount Norepinephrin 4 mg-0.9% 51.938 Ns Pmx 4 mg In 250 ml @ Titrate IV .Q0M [facility] Rx#: [id number] Propofol 1,000 mg In 81.069 97.403 124.352 Empty Bag 1 bag @ Titrate IV .Q0M [facility] Rx#: [id number] Oral 85 Other 30 Output: Gastric Drainage 350 Urine 100 400 795 Other: Voiding Method Indwelling Catheter Indwelling Catheter Weight 86.2 kg General: ill appearing , moderate distress, appears at stated age, obese Derm: no unusual rashes/lesions no unusual ecchymoses, warm, dry Head: atraumatic, normocephalic, symmetric Eyes: anicteric sclera, pupils equal round reactive to light ENT: Nose and ears atraumatic, ET tube in place Neck: No thyromegaly, no cervical lymphadenopathy, trachea midline, supple Mouth: no lip lesion, mucus membranes moist Cardiovascular: S1S2 reg, with systolic murmur, positive posterior tibial pulse bilateral, 2+ edema, capillary refill less than 2 seconds Lungs: course bs b/l, no accessory muscle use, on vent Abdominal: soft, nontender to palpation, no guarding, no appreciable organomegaly, normal bowel sounds Ext: no gross muscle atrophy, no contractures, Neuro: grimices to pain, withdrawal to pain in b/l UE Psych: sedated on vent I will stop the sedation and reevaluated the patient she does open her eyes follow simple commands she is only only on 2 mics of levophed drip, her vent settings are reviewed she is on assist control with FiO2 of 55% which is gradually being titrated down Results - Laboratory Findings CBC and BMP: 10/05/17 04:22 10/05/17 04:22 ABG ABG pH 7.50 (7.35-7.45) H 10/05/17 13:12 ABG pCO2 39 mmHg (35-45) 10/05/17 13:12 ABG pO2 190 mmHg (83-108) H 10/05/17 13:12 ABG O2 Saturation 100.0 % (94-97) H 10/05/17 13:12 PT/INR, D-dimer PT 11.2 sec (9.0-12.0) 10/04/17 16:48 INR 1.2 (<1.2) H 10/04/17 16:48 Abnormal lab findings: Abnormal Labs 10/04/17 10/04/17 10/04/17 16:48 16:48 16:48 WBC 18.1 H RBC Hgb MCHC 29.5 L RDW 16.4 H Neutrophils # 11.8 H Monocytes # 1.1 H INR 1.2 H ABG pH ABG pCO2 ABG pO2 ABG HCO3 ABG Total CO2 ABG O2 Saturation Potassium 5.2 H Carbon Dioxide BUN 22 H Creatinine 1.15 H Glucose 207 H POC Glucose (mg/dL) Phosphorus Urine Appearance Urine Protein Urine Ketones Ur Leukocyte Esterase Urine Bacteria Urine Mucus 10/04/17 10/04/17 10/04/17 17:44 19:40 21:34 WBC RBC Hgb MCHC RDW Neutrophils # Monocytes # INR ABG pH 7.24 L ABG pCO2 72 H* ABG pO2 306 H ABG HCO3 30 H ABG Total CO2 32 H ABG O2 Saturation 100.0 H Potassium Carbon Dioxide BUN Creatinine Glucose POC Glucose (mg/dL) 160 H Phosphorus Urine Appearance Cloudy H Urine Protein 1+ H Urine Ketones Trace H Ur Leukocyte Esterase Moderate H Urine Bacteria Many H Urine Mucus Many H 10/05/17 10/05/17 10/05/17 04:08 04:22 04:22 WBC 13.4 H RBC 3.63 L Hgb 10.5 L MCHC 30.6 L RDW 16.0 H Neutrophils # 11.1 H Monocytes # INR ABG pH ABG pCO2 ABG pO2 ABG HCO3 30 H ABG Total CO2 32 H ABG O2 Saturation Potassium Carbon Dioxide 33 H BUN 24 H Creatinine 1.35 H Glucose 123 H POC Glucose (mg/dL) Phosphorus 4.7 H Urine Appearance Urine Protein Urine Ketones Ur Leukocyte Esterase Urine Bacteria Urine Mucus 10/05/17 10/05/17 10/05/17 06:21 12:06 13:12 WBC RBC Hgb MCHC RDW Neutrophils # Monocytes # INR ABG pH 7.50 H ABG pCO2 ABG pO2 190 H ABG HCO3 30 H ABG Total CO2 31 H ABG O2 Saturation 100.0 H Potassium Carbon Dioxide BUN Creatinine Glucose POC Glucose (mg/dL) 136 H 143 H Phosphorus Urine Appearance Urine Protein Urine Ketones Ur Leukocyte Esterase Urine Bacteria Urine Mucus - Diagnostic Findings Chest x-ray: report reviewed, image reviewed (Significant improvement in pulmonary edema as noted with a small right lower lobe atelectasis and effusion) Assessment and Plan Assessment: Acute pulmonary edema likely related to severe degree of mitral stenosis Acute hypoxic respirator failure related to above Non-STEMI less likely will repeat the troponins Leukocytosis likely related to acute pulmonary edema doubt infectious process however we'll monitor observe radiographically and we'll continue to hold antibiotics Severe degree of mitral stenosis Plan: We'll titrate sedation down monitor patient off of sedation continue gentle rehydration continue on beta blockers gentle diuretics will put patient on CPAP and pressure support once FiO2 is down to 40% and likely will be extubated continue to maintain patient on DVT and peptic ulcer disease prophylaxis continue patient on supportive care and breathing treatments will follow clinical course closely further recommendations pending Once he stabilized and likely would be transferred to [facility] in next 24-48 hours Time with Patient: Greater than 30
[2017-10-05 14:44] LABS: Hemoglobin A1C 6.1 % (4.0-6.0)
--- NOTE | 2017-10-05 15:06 | P.PN ---
Subjective Progress Note Date: 10/05/17 Principal diagnosis: SOB Patient was just extubated, now she is sob and tachycardia. Has some sore throat and hoarseness. Objective - Vital Signs Vital signs: Vital Signs Temp 99.6 F 10/05/17 12:00 Pulse 104 H 10/05/17 13:00 Resp 73 H 10/05/17 13:00 BP 141/70 10/05/17 13:00 Pulse Ox 94 L 10/05/17 13:00 Intake & Output 10/04/17 10/05/17 10/05/17 18:59 06:59 18:59 Intake Total 12.773 805.699 531.290 Output Total 850 795 Balance 12.773 -44.301 -263.710 Weight 97.522 kg 86.2 kg Intake: IV 640 240 Magnesium Sulfate-D5w Pmx 100 1 gm In Dextrose/Water 1 100ml.bag @ 100 mls/hr IVPB Q1H [facility] Rx#: [id number] Sodium Chloride 0.9% 1, 140 140 000 ml @ 20 mls/hr IV . Q24H [facility] Rx#:[id number] Sodium Chloride 0.9% 500 500 ml @ 250 mls/hr IV .Q2H [facility] Rx#:[id number] Intake, IV Titration 12.773 165.699 176.290 Amount Norepinephrin 4 mg-0.9% 51.938 Ns Pmx 4 mg In 250 ml @ Titrate IV .Q0M [facility] Rx#: [id number] Propofol 1,000 mg In 12.773 165.699 124.352 Empty Bag 1 bag @ Titrate IV .Q0M [facility] Rx#: [id number] Oral 85 Other 30 Output: Gastric Drainage 350 Urine 500 795 Other: Voiding Method Indwelling Catheter Indwelling Catheter - Exam General: ill appearing , moderate respiratory distress, slight use of accessory muscles, obese Derm: no unusual rashes/lesions no unusual ecchymoses, warm, dry Head: atraumatic, normocephalic, symmetric Eyes: anicteric sclera, pupils equal round reactive to light ENT: Nose and ears atraumatic, Neck: No thyromegaly, no cervical lymphadenopathy, trachea midline, supple Mouth: no lip lesion, mucus membranes moist Cardiovascular: S1S2 reg, with systolic murmur, tachycardic, positive posterior tibial pulse bilateral, 2+ edema, capillary refill less than 2 seconds Lungs: bibasilar crackles up to the mid chest, Abdominal: soft, nontender to palpation, no guarding, no appreciable organomegaly, normal bowel sounds Ext: no gross muscle atrophy, no contractures, no clubbing or deformities. Neuro: Alert and oriented X3, non-focal. - Labs CBC & Chem 7: 10/05/17 04:22 10/05/17 04:22 Labs: Abnormal Lab Results - Last 24 Hours (Table) 10/04/17 10/04/17 10/04/17 Range/Units 16:48 16:48 16:48 WBC 18.1 H (3.8-10.6) k/uL RBC (3.80-5.40) m/uL Hgb (11.4-16.0) gm/dL MCHC 29.5 L (31.0-37.0) g/dL RDW 16.4 H (11.5-15.5) % Neutrophils # 11.8 H (1.3-7.7) k/uL Monocytes # 1.1 H (0-1.0) k/uL INR 1.2 H (<1.2) ABG pH (7.35-7.45) ABG pCO2 (35-45) mmHg ABG pO2 (83-108) mmHg ABG HCO3 (21-25) mmol/L ABG Total CO2 (19-24) mmol/L ABG O2 Saturation (94-97) % Potassium 5.2 H (3.5-5.1) mmol/L Carbon Dioxide (22-30) mmol/L BUN 22 H (7-17) mg/dL Creatinine 1.15 H (0.52-1.04) mg/dL Glucose 207 H (74-99) mg/dL POC Glucose (mg/dL) (75-99) mg/dL Phosphorus (2.5-4.5) mg/dL Urine Appearance (Clear) Urine Protein (Negative) Urine Ketones (Negative) Ur Leukocyte Esterase (Negative) Urine Bacteria (None) /hpf Urine Mucus (None) /hpf 10/04/17 10/04/17 10/04/17 Range/Units 17:44 19:40 21:34 WBC (3.8-10.6) k/uL RBC (3.80-5.40) m/uL Hgb (11.4-16.0) gm/dL MCHC (31.0-37.0) g/dL RDW (11.5-15.5) % Neutrophils # (1.3-7.7) k/uL Monocytes # (0-1.0) k/uL INR (<1.2) ABG pH 7.24 L (7.35-7.45) ABG pCO2 72 H* (35-45) mmHg ABG pO2 306 H (83-108) mmHg ABG HCO3 30 H (21-25) mmol/L ABG Total CO2 32 H (19-24) mmol/L ABG O2 Saturation 100.0 H (94-97) % Potassium (3.5-5.1) mmol/L Carbon Dioxide (22-30) mmol/L BUN (7-17) mg/dL Creatinine (0.52-1.04) mg/dL Glucose (74-99) mg/dL POC Glucose (mg/dL) 160 H (75-99) mg/dL Phosphorus (2.5-4.5) mg/dL Urine Appearance Cloudy H (Clear) Urine Protein 1+ H (Negative) Urine Ketones Trace H (Negative) Ur Leukocyte Esterase Moderate H (Negative) Urine Bacteria Many H (None) /hpf Urine Mucus Many H (None) /hpf 10/05/17 10/05/17 10/05/17 Range/Units 04:08 04:22 04:22 WBC 13.4 H (3.8-10.6) k/uL RBC 3.63 L (3.80-5.40) m/uL Hgb 10.5 L (11.4-16.0) gm/dL MCHC 30.6 L (31.0-37.0) g/dL RDW 16.0 H (11.5-15.5) % Neutrophils # 11.1 H (1.3-7.7) k/uL Monocytes # (0-1.0) k/uL INR (<1.2) ABG pH (7.35-7.45) ABG pCO2 (35-45) mmHg ABG pO2 (83-108) mmHg ABG HCO3 30 H (21-25) mmol/L ABG Total CO2 32 H (19-24) mmol/L ABG O2 Saturation (94-97) % Potassium (3.5-5.1) mmol/L Carbon Dioxide 33 H (22-30) mmol/L BUN 24 H (7-17) mg/dL Creatinine 1.35 H (0.52-1.04) mg/dL Glucose 123 H (74-99) mg/dL POC Glucose (mg/dL) (75-99) mg/dL Phosphorus 4.7 H (2.5-4.5) mg/dL Urine Appearance (Clear) Urine Protein (Negative) Urine Ketones (Negative) Ur Leukocyte Esterase (Negative) Urine Bacteria (None) /hpf Urine Mucus (None) /hpf 10/05/17 10/05/17 10/05/17 Range/Units 06:21 12:06 13:12 WBC (3.8-10.6) k/uL RBC (3.80-5.40) m/uL Hgb (11.4-16.0) gm/dL MCHC (31.0-37.0) g/dL RDW (11.5-15.5) % Neutrophils # (1.3-7.7) k/uL Monocytes # (0-1.0) k/uL INR (<1.2) ABG pH 7.50 H (7.35-7.45) ABG pCO2 (35-45) mmHg ABG pO2 190 H (83-108) mmHg ABG HCO3 30 H (21-25) mmol/L ABG Total CO2 31 H (19-24) mmol/L ABG O2 Saturation 100.0 H (94-97) % Potassium (3.5-5.1) mmol/L Carbon Dioxide (22-30) mmol/L BUN (7-17) mg/dL Creatinine (0.52-1.04) mg/dL Glucose (74-99) mg/dL POC Glucose (mg/dL) 136 H 143 H (75-99) mg/dL Phosphorus (2.5-4.5) mg/dL Urine Appearance (Clear) Urine Protein (Negative) Urine Ketones (Negative) Ur Leukocyte Esterase (Negative) Urine Bacteria (None) /hpf Urine Mucus (None) /hpf Microbiology - Last 24 Hours (Table) 10/04/17 17:24 Gram Stain - Preliminary Sputum Sputum Culture - Preliminary Assessment and Plan Plan: Acute exacerbation of CHF with severe mitral stenosis - lasix 40 twice daily - Metoprolol 50mg po tid. - Resume lisinopril 10mg daily - Strict I and O/daily weights - D/W Dr. Hart - Echo pending. -Will Tx to [facility] once more stable. -Repeat chest x-ray in a.m. Acute on chronic hypoxic/ hypercapnic respiratory fialure - secondary to above - S/P extubation -Stat ABG -Bipap prn for respiratory distress COPD, without acute exacerbation - duonbes - prn bronchodilators - no indication for steroid at this time Leukocytosis -Suspect reactive with pulmonary edema on chest x-ray -Repeat CBC in a.m. -Urinalysis without signs of infection Diabetes mellitus type 2 -Hold orals -Sliding-scale insulin -Accu-Cheks--sugars controlled. HTN, controlled - Continue lisinopril today - On metroprolol and lasix - follow blood pressures Hypothyroidism - TSH WNL - Continue synthroid CKD 3 at baseline with borderline hyperkalemia on admission--resolved. - follow BMP when on IV lasix - avoid additional nephrotoxic agents ASCAD with hx of PCI - ASA, plavix Obesity, BMI 36.9 -Structured outpatient weight loss
[2017-10-05] MEDS ORDERED: FUROSEMIDE 10 MG/ML 4 ML VIAL IV STA (15:08)
[2017-10-05] MEDS: ALPRAZolam 0.5 MG TAB PO PRN ×2 (15:30→22:19)
--- NOTE | 2017-10-05 15:34 | ECHOF ---
Referral Reason:chf, mitral regurg MEASUREMENTS -------- HEIGHT: 162.6 cm WEIGHT: 86.2 kg BP: 94/59 LAESV Index (A-L): 43.90 ml/m Ao Diam: 3.6 cm (2.0 - 3.7) AV Cusp: 1.6 cm (1.5 - 2.6) LA Diam: 4.2 cm (2.7 - 3.8) MV E Brandyn: 1.85 m/s MV DecT: 794 ms MV A Brandyn: 2.03 m/s MV E/A Ratio: 0.91 RAP: 5.00 mmHg RVSP: 13.37 mmHg FINDINGS -------- Sinus rhythm. This was a technically difficult study with suboptimal views. The left ventricular size is normal. Left ventricular wall thickness is normal. Overall left vent ricular systolic function is normal with, an EF between 55 - 60 %. The right ventricle is normal in size and function. LA is severely dilated >40 ml/m2 The right atrium is normal in size. 1.5mg of Definity was utilized for enhancement of images There is moderate aortic valve sclerosis. Severe mitral annular calcification present. [id number] mitral regurgitation is present. Th e peak and mean MV gradients are 23.18mmHg and 10.25mmHg as measured by doppler. Severe mitral steno sis. Trace tricuspid regurgitation present. Right ventricular systolic pressure is normal at < 35 mmHg. There is no evidence of pulmonary hypertension. The pulmonic valve was not well visualized. The aortic root size is normal. The inferior vena cava is dilated with poor inspiratory collapse which is consistent with estimated r ight atrial pressure of 20 mmHg. There is no pericardial effusion. CONCLUSIONS -------- 1. Sinus rhythm. 2. This was a technically difficult study with suboptimal views. 3. Left ventricular wall thickness is normal. 4. Overall left ventricular systolic function is normal with, an EF between 55 - 60 %. 5. 1.5mg of Definity was utilized for enhancement of images 6. There is moderate aortic valve sclerosis. 7. Severe mitral annular calcification present. 8. [id number] mitral regurgitation is present. 9. Trace tricuspid regurgitation present. 10. Right ventricular systolic pressure is normal at < 35 mmHg. 11. The pulmonic valve was not well visualized. 12. The aortic root size is normal. 13. The inferior vena cava is dilated with poor inspiratory collapse which is consistent with estimat ed right atrial pressure of 20 mmHg. 14. There is no pericardial effusion. CHIEF ENGINEER'S HELPER: Jean Marie Evans RDCS
[2017-10-05] MEDS: LISINOPRIL 10 MG TAB PO SCH (16:02)
[2017-10-05 16:47] LABS: ABG PCO2 57 mmHg (35-45); ABG PH 7.39 (7.35-7.45); ABG PO2 79 mmHg (83-108)
[2017-10-05 16:48] LABS: ABG HCO3 34 mmol/L (21-25); ABG TCO2 36 mmol/L (19-24)
[2017-10-05 18:27] LABS: Glucose,Whole Blood 121 mg/dL (75-99)
[2017-10-05] MEDS: SODIUM CHLORIDE 0.9% 1,000 ML IV SCH (20:09)
[2017-10-06 00:04] LABS: Glucose,Whole Blood 129 mg/dL (75-99)
[2017-10-06] MEDS: INSULIN ASPART 100 UNIT/ML 1 ML 10 ML VIAL SQ SCH ×5 (00:05→20:19)
[2017-10-06] MEDS: IPRATROPIUM-ALBUTEROL 3 ML NEB INHALATION SCH ×5 (03:18→20:34)
[2017-10-06 05:36] LABS: Anisocytosis Slight; Basophils % (A) 0 %; Eosinophils # (A) 0.3 k/uL (0-0.7); Eosinophils % (A) 2 %; HCT 35.2 % (34.0-46.0); HGB 10.9 gm/dL (11.4-16.0); Hypochromasia Slight; Lymphocytes # (A) 1.4 k/uL (1.0-4.8); Lymphocytes % (A) 11 %; MCH 29.1 pg (25.0-35.0); MCHC 31.1 g/dL (31.0-37.0); MCV 93.6 fL (80.0-100.0); Mean Platelet Volume 8.1; Monocytes # (A) 0.9 k/uL (0-1.0); Monocytes % (A) 7 %; Neutrophils # (A) 10.1 k/uL (1.3-7.7); Neutrophils % (A) 79 %; Platelet Count 244 k/uL (150-450); RBC 3.76 m/uL (3.80-5.40); RDW 16.2 % (11.5-15.5); WBC 12.8 k/uL (3.8-10.6)
[2017-10-06 05:52] LABS: Calcium 8.8 mg/dL (8.4-10.2); Magnesium 2.1 mg/dL (1.6-2.3); Phosphorus 4.9 mg/dL (2.5-4.5); Potassium 3.8 mmol/L (3.5-5.1)
[2017-10-06 06:06] LABS: Glucose,Whole Blood 113 mg/dL (75-99)
[2017-10-06] MEDS: LEVOTHYROXINE 75 MCG TAB PO SCH (06:33)
[2017-10-06] MEDS: LEVOTHYROXINE 100 MCG TAB PO SCH (06:33)
[2017-10-06] MEDS: ALPRAZolam 0.5 MG TAB PO PRN (06:33)
--- NOTE | 2017-10-06 06:40 | XR ---
EXAMINATION TYPE: XR chest 1V portable DATE OF EXAM: 10/06/2017 HISTORY: Tube placement. REFERENCE: Previous study dated 10/05/2017. FINDINGS: The patient is ET tube and NG tube have been removed. There continue be bilateral effusions, greater on the right than the left. There is bibasilar airspac e IMPRESSION: 1. BILATERAL EFFUSIONS, GREATER ON THE RIGHT THAN THE LEFT. 2. BIBASILAR AIRSPACE DISEASE.
[2017-10-06] MEDS: LISINOPRIL 10 MG TAB PO SCH (07:32)
[2017-10-06] MEDS: METOPROLOL TARTRATE 50 MG TAB PO SCH ×3 (07:33→21:29)
[2017-10-06] MEDS: ASPIRIN 81 MG PO SCH (08:55)
[2017-10-06] MEDS: DOCUSATE 100 MG CAP PO SCH ×2 (08:55→20:17)
[2017-10-06] MEDS: ENOXAPARIN 40 MG/0.4 ML SYRINGE SQ SCH (08:55)
[2017-10-06] MEDS: PANTOPRAZOLE 40 MG/10 ML VIAL IV SCH (08:55)
[2017-10-06] MEDS: ALLOPURINOL 100 MG TAB PO SCH (08:55)
[2017-10-06] MEDS: AMIODARONE 200 MG TAB PO SCH ×2 (08:55→20:17)
[2017-10-06] MEDS: FUROSEMIDE 10 MG/ML 4 ML VIAL IV SCH (09:52)
--- NOTE | 2017-10-06 10:54 | PN ---
PROGRESS NOTE DATE OF SERVICE: 10/06/2017. HISTORY: Ms. Fisher is a 77-year-old female with a history of severe mitral stenosis, who was scheduled to undergo evaluation for mitral valve replacement. She came in with respiratory failure requiring mechanical ventilation. She is extubated, awake, alert. She has a sore throat, but she has no chest pain. She is mildly dyspneic. She denies any dizziness or palpitation. She denies any nausea. She is in sinus mechanism. She continues to be on metoprolol 50 mg 3 times a day, amiodarone 200 mg twice a day, aspirin 81 mg daily, Plavix 75 mg daily, furosemide 40 mg IV every 12 hours. PHYSICAL EXAMINATION: Blood pressure running in the 90s with a heart in the 80s. LUNGS: No wheezes or rales appreciated. HEART: Regular rate and rhythm. S1, S2. No S3. Systolic murmur at the apex and a diastolic rumble. ABDOMEN: Soft, nontender. EXTREMITIES: No edema. DIAGNOSTIC STUDIES: She had an echocardiogram yesterday that revealed a preserved systolic function with evidence of severe mitral stenosis. RECOMMENDATIONS: The patient's dose of diuretics will be reduced to oral. I will will hold her ARLENE inhibitor at this time because of low blood pressure. Follow her renal function. Patient will need to proceed with evaluation before for surgical intervention. She is scheduled to be seen by Dr. Otoole as an outpatient. [id number] / GLON: [id number] /
[2017-10-06 12:18] LABS: Glucose,Whole Blood 113 mg/dL (75-99)
--- NOTE | 2017-10-06 12:50 | P.PN ---
Subjective Progress Note Date: 10/06/17 Principal diagnosis: Acute exacerbation of CHF Patient seen and examined in the ICU with nursing staff and family at bedside. The patient was extubated yesterday. She states she is still a little bit short of breath. She has not had fevers overnight. T-max is 99.4. She is asking for something to eat. She is currently on 2 L nasal cannula. She states that she was supposed to see Dr. Scott in the office this week for possible mitral valve replacement. She has diuresed over 2 L since yesterday. Objective - Vital Signs Vital signs: Vital Signs Temp 99.0 F 10/06/17 12:00 Pulse 86 10/06/17 12:00 Resp 40 H 10/06/17 12:00 BP 89/55 10/06/17 12:00 Pulse Ox 96 10/06/17 12:00 Intake & Output 10/05/17 10/06/17 10/06/17 18:59 06:59 18:59 Intake Total 633.165 260 350 Output Total 2045 1415 474 Balance -1411.835 -1155 -124 Weight 82.5 kg 82.5 kg Intake: IV 340 260 100 Magnesium Sulfate-D5w Pmx 100 1 gm In Dextrose/Water 1 100ml.bag @ 100 mls/hr IVPB Q1H [facility] Rx#: [id number] Sodium Chloride 0.9% 1, 240 260 100 000 ml @ 20 mls/hr IV . Q24H [facility] Rx#:[id number] Intake, IV Titration 178.165 Amount Norepinephrin 4 mg-0.9% 53.813 Ns Pmx 4 mg In 250 ml @ Titrate IV .Q0M [facility] Rx#: [id number] Propofol 1,000 mg In 124.352 Empty Bag 1 bag @ Titrate IV .Q0M NAHEED Rx#: [id number] Oral 85 250 Other 30 Output: Urine 2045 1415 474 Other: Voiding Method Indwelling Catheter Indwelling Catheter Indwelling Catheter - Exam Gen.: Patient is alert and oriented 3, to Cardiovascular: Regular rate and rhythm, S1/S2 Lungs: Coarse breath sounds bilaterally Abdomen: Soft nontender nondistended positive bowel sounds Extremities: Trace edema - Labs CBC & Chem 7: 10/06/17 05:16 10/06/17 05:16 Labs: Abnormal Lab Results - Last 24 Hours (Table) 10/05/17 10/05/17 10/05/17 Range/Units 04:22 13:12 16:30 WBC (3.8-10.6) k/uL RBC (3.80-5.40) m/uL Hgb (11.4-16.0) gm/dL RDW (11.5-15.5) % Neutrophils # (1.3-7.7) k/uL ABG pH 7.50 H (7.35-7.45) ABG pCO2 57 H (35-45) mmHg ABG pO2 190 H 79 L (83-108) mmHg ABG HCO3 30 H 34 H (21-25) mmol/L ABG Total CO2 31 H 36 H (19-24) mmol/L ABG O2 Saturation 100.0 H (94-97) % Chloride (98-107) mmol/L Carbon Dioxide (22-30) mmol/L BUN (7-17) mg/dL Creatinine (0.52-1.04) mg/dL Glucose (74-99) mg/dL POC Glucose (mg/dL) (75-99) mg/dL Hemoglobin A1c 6.1 H (4.0-6.0) % Phosphorus (2.5-4.5) mg/dL 10/05/17 10/06/17 10/06/17 Range/Units 18:24 00:03 05:16 WBC 12.8 H (3.8-10.6) k/uL RBC 3.76 L (3.80-5.40) m/uL Hgb 10.9 L (11.4-16.0) gm/dL RDW 16.2 H (11.5-15.5) % Neutrophils # 10.1 H (1.3-7.7) k/uL ABG pH (7.35-7.45) ABG pCO2 (35-45) mmHg ABG pO2 (83-108) mmHg ABG HCO3 (21-25) mmol/L ABG Total CO2 (19-24) mmol/L ABG O2 Saturation (94-97) % Chloride (98-107) mmol/L Carbon Dioxide (22-30) mmol/L BUN (7-17) mg/dL Creatinine (0.52-1.04) mg/dL Glucose (74-99) mg/dL POC Glucose (mg/dL) 121 H 129 H (75-99) mg/dL Hemoglobin A1c (4.0-6.0) % Phosphorus (2.5-4.5) mg/dL 10/06/17 10/06/17 10/06/17 Range/Units 05:16 06:05 12:15 WBC (3.8-10.6) k/uL RBC (3.80-5.40) m/uL Hgb (11.4-16.0) gm/dL RDW (11.5-15.5) % Neutrophils # (1.3-7.7) k/uL ABG pH (7.35-7.45) ABG pCO2 (35-45) mmHg ABG pO2 (83-108) mmHg ABG HCO3 (21-25) mmol/L ABG Total CO2 (19-24) mmol/L ABG O2 Saturation (94-97) % Chloride 97 L (98-107) mmol/L Carbon Dioxide 36 H (22-30) mmol/L BUN 25 H (7-17) mg/dL Creatinine 1.40 H (0.52-1.04) mg/dL Glucose 114 H (74-99) mg/dL POC Glucose (mg/dL) 113 H 113 H (75-99) mg/dL Hemoglobin A1c (4.0-6.0) % Phosphorus 4.9 H (2.5-4.5) mg/dL Microbiology - Last 24 Hours (Table) 10/04/17 17:24 Gram Stain - Preliminary Sputum Sputum Culture - Final Moraxella(branhamella) catarra Assessment and Plan Assessment: Acute pulmonary edema likely related to severe degree of mitral stenosis Acute on chronic hypoxic respiratory failure related to above Right greater than left pleural effusions Sputum positive for moraxella catarrahlis - tracheobronchitis Acute exacerbation of COPD Bibasilar atelectasis NSTEMI Leukocytosis Severe degree of mitral stenosis DM2 Hypertension Hypothyroidism CKD3 ASCAD with history of PCI Anemia, normocytic Plan: Continue on beta blockers Gentle diuretics DVT and peptic ulcer disease prophylaxis: Lovenox, and Protonix Continue patient on supportive care Breathing treatments Discontinue levophed Consult Dr. Sctot Schedule for ultrasound chest to assess for possible thoracentesis Clear liquid diet Titrate O2 to maintain sat > or = 90% ABX: Levaquin for moraxella infection I/O, daily weight Cardiology recommendations Blood sugar, blood pressure control Possible plan for transfer to [place] per family/patient request
--- NOTE | 2017-10-06 13:35 | US ---
EXAMINATION TYPE: US chest DATE OF EXAM: 10/06/2017 COMPARISON: CLINICAL HISTORY: sob, diagnostic vs fluid measurement. Bilateral chest EXAM MEASUREMENTS: Right Pleural Effusion fluid pocket: 2.1 cm Left Pleural Effusion fluid pocket: 6.8 cm Left skin to fluid thickness: 3.1 cm Left side marked for possible thoracentesis outside the dept. Right side not marked due to visual tissue within pocket Pulmonologists are able to review the images in the patient?s EMR. Difficult scan due to patient unable to sit upright IMPRESSIONS: BILATERAL EFFUSIONS, GREATER ON THE LEFT THAN THE RIGHT.
[2017-10-06] MEDS: LEVOFLOXACIN 500 MG TAB PO SCH (14:54)
--- NOTE | 2017-10-06 15:42 | P.PN ---
Subjective Progress Note Date: 10/06/17 Principal diagnosis: SOB Her breathing is better but she is having abdominal wall pain/discomfort because of coughing. She is also having left ankle pain and swelling. Objective - Vital Signs Vital signs: Vital Signs Temp 99.0 F 10/06/17 12:00 Pulse 86 10/06/17 14:00 Resp 35 H 10/06/17 14:00 BP 90/52 10/06/17 14:00 Pulse Ox 92 L 10/06/17 14:00 Intake & Output 10/05/17 10/06/17 10/06/17 18:59 06:59 18:59 Intake Total 633.165 260 390 Output Total 2045 1415 699 Balance -1411.835 -1155 -309 Weight 82.5 kg 82.5 kg Intake: IV 340 260 140 Magnesium Sulfate-D5w Pmx 100 1 gm In Dextrose/Water 1 100ml.bag @ 100 mls/hr IVPB Q1H [facility] Rx#: [id number] Sodium Chloride 0.9% 1, 240 260 140 000 ml @ 20 mls/hr IV . Q24H [facility] Rx#:[id number] Intake, IV Titration 178.165 Amount Norepinephrin 4 mg-0.9% 53.813 Ns Pmx 4 mg In 250 ml @ Titrate IV .Q0M [facility] Rx#: [id number] Propofol 1,000 mg In 124.352 Empty Bag 1 bag @ Titrate IV .Q0M [facility] Rx#: [id number] Oral 85 250 Other 30 Output: Urine 2045 1415 699 Other: Voiding Method Indwelling Catheter Indwelling Catheter Indwelling Catheter - Exam General: ill appearing , moderate respiratory distress, slight use of accessory muscles, obese Skin: no unusual rashes/lesions no unusual ecchymoses, warm, dry Head: atraumatic, normocephalic, symmetric Eyes: anicteric sclera, pupils equal round reactive to light ENT: Nose and ears atraumatic, Neck: No thyromegaly, no cervical lymphadenopathy, trachea midline, supple Mouth: no lip lesion, mucus membranes moist Cardiovascular: S1S2 normal, with systolic murmur normal rate and rhythm, positive posterior tibial pulse bilateral, 1+ edema, capillary refill less than 2 seconds Lungs: bibasilar crackles in the lower chest Abdominal: soft, nontender to palpation, no guarding, no appreciable organomegaly, normal bowel sounds Ext: left ankle swollen and tender to deep palpation. no gross muscle atrophy, no contractures, no clubbing or deformities. Neuro: Alert and oriented X3, non-focal. - Labs CBC & Chem 7: 10/06/17 05:16 10/06/17 05:16 Labs: Abnormal Lab Results - Last 24 Hours (Table) 10/05/17 10/05/17 10/05/17 Range/Units 04:22 16:30 18:24 WBC (3.8-10.6) k/uL RBC (3.80-5.40) m/uL Hgb (11.4-16.0) gm/dL RDW (11.5-15.5) % Neutrophils # (1.3-7.7) k/uL ABG pCO2 57 H (35-45) mmHg ABG pO2 79 L (83-108) mmHg ABG HCO3 34 H (21-25) mmol/L ABG Total CO2 36 H (19-24) mmol/L Chloride (98-107) mmol/L Carbon Dioxide (22-30) mmol/L BUN (7-17) mg/dL Creatinine (0.52-1.04) mg/dL Glucose (74-99) mg/dL POC Glucose (mg/dL) 121 H (75-99) mg/dL Hemoglobin A1c 6.1 H (4.0-6.0) % Phosphorus (2.5-4.5) mg/dL 10/06/17 10/06/17 10/06/17 Range/Units 00:03 05:16 05:16 WBC 12.8 H (3.8-10.6) k/uL RBC 3.76 L (3.80-5.40) m/uL Hgb 10.9 L (11.4-16.0) gm/dL RDW 16.2 H (11.5-15.5) % Neutrophils # 10.1 H (1.3-7.7) k/uL ABG pCO2 (35-45) mmHg ABG pO2 (83-108) mmHg ABG HCO3 (21-25) mmol/L ABG Total CO2 (19-24) mmol/L Chloride 97 L (98-107) mmol/L Carbon Dioxide 36 H (22-30) mmol/L BUN 25 H (7-17) mg/dL Creatinine 1.40 H (0.52-1.04) mg/dL Glucose 114 H (74-99) mg/dL POC Glucose (mg/dL) 129 H (75-99) mg/dL Hemoglobin A1c (4.0-6.0) % Phosphorus 4.9 H (2.5-4.5) mg/dL 10/06/17 10/06/17 Range/Units 06:05 12:15 WBC (3.8-10.6) k/uL RBC (3.80-5.40) m/uL Hgb (11.4-16.0) gm/dL RDW (11.5-15.5) % Neutrophils # (1.3-7.7) k/uL ABG pCO2 (35-45) mmHg ABG pO2 (83-108) mmHg ABG HCO3 (21-25) mmol/L ABG Total CO2 (19-24) mmol/L Chloride (98-107) mmol/L Carbon Dioxide (22-30) mmol/L BUN (7-17) mg/dL Creatinine (0.52-1.04) mg/dL Glucose (74-99) mg/dL POC Glucose (mg/dL) 113 H 113 H (75-99) mg/dL Hemoglobin A1c (4.0-6.0) % Phosphorus (2.5-4.5) mg/dL Microbiology - Last 24 Hours (Table) 10/04/17 17:24 Gram Stain - Preliminary Sputum Sputum Culture - Final Moraxella(branhamella) catarra Assessment and Plan Plan: Acute exacerbation of CHF with severe mitral stenosis - Lasix 40 twice daily--switch to po - Metoprolol 50mg po tid. - Resume lisinopril 10mg daily - Strict I and O/daily weights - Echo showing mitral severe stenosis and moderate regurgitation. - Consult CT surgery - Repeat chest x-ray in a.m. Acute Moraxella Catarrhalis pneumonia: Levaquin daily 750mg. Leukocytosis -Suspect sec to #2 -Trending down -Repeat CBC in a.m. -Urinalysis without signs of infection Acute on chronic hypoxic/ hypercapnic respiratory fialure -Secondary to above -S/P extubation 10/05--tolerated -On high flow NC Acute gout left ankle: Start prednisone taper 40-30-20. COPD, without acute exacerbation - duonbes - prn bronchodilators - no indication for steroid at this time Diabetes mellitus type 2 -Hold orals -Sliding-scale insulin -Accu-Cheks--sugars controlled. HTN, controlled - Continue lisinopril today - On metroprolol and lasix - follow blood pressures Hypothyroidism - TSH WNL - Continue synthroid CKD 3 at baseline with borderline hyperkalemia on admission--resolved. - follow BMP when on lasix - avoid additional nephrotoxic agents CAD with hx of PCI - ASA, plavix Obesity, BMI 36.9 -Structured outpatient weight loss
[2017-10-06] MEDS: predniSONE 20 MG TAB PO SCH (16:22)
[2017-10-06] MEDS: FUROSEMIDE 40 MG TAB PO SCH (17:06)
[2017-10-06 17:10] LABS: Glucose,Whole Blood 106 mg/dL (75-99)
[2017-10-06] MEDS ORDERED: Potassium Replacement Protocol 1 EACH MISC MISCELLANE PRN (17:33)
[2017-10-06] MEDS ORDERED: POTASSIUM CHLORIDE ER 20 MEQ TAB.ER PO SCH (18:00)
[2017-10-06] MEDS: SODIUM CHLORIDE 0.9% 1,000 ML IV SCH (18:53)
[2017-10-06 20:20] LABS: Glucose,Whole Blood 258 mg/dL (75-99)
[2017-10-07] MEDS: IPRATROPIUM-ALBUTEROL 3 ML NEB INHALATION SCH ×7 (00:51→20:31)
[2017-10-07 04:32] LABS: Basophils % (A) 0 %; Eosinophils % (A) 0 %; HCT 33.8 % (34.0-46.0); HGB 10.5 gm/dL (11.4-16.0); Hypochromasia Slight; Lymphocytes # (A) 0.4 k/uL (1.0-4.8); Lymphocytes % (A) 4 %; MCH 29.4 pg (25.0-35.0); MCHC 30.9 g/dL (31.0-37.0); MCV 95.1 fL (80.0-100.0); Mean Platelet Volume 6.7; Monocytes # (A) 0.4 k/uL (0-1.0); Monocytes % (A) 3 %; Neutrophils % (A) 92 %; Platelet Count 230 k/uL (150-450); RBC 3.55 m/uL (3.80-5.40); RDW 14.6 % (11.5-15.5); WBC 11.9 k/uL (3.8-10.6)
[2017-10-07 04:50] LABS: Calcium 8.9 mg/dL (8.4-10.2); Magnesium 1.9 mg/dL (1.6-2.3); Phosphorus 4.4 mg/dL (2.5-4.5); Potassium 4.4 mmol/L (3.5-5.1)
[2017-10-07] MEDS: LEVOTHYROXINE 75 MCG TAB PO SCH (06:22)
[2017-10-07] MEDS: LEVOTHYROXINE 100 MCG TAB PO SCH (06:22)
[2017-10-07 07:45] LABS: Glucose,Whole Blood 150 mg/dL (75-99)
[2017-10-07] MEDS: INSULIN ASPART 100 UNIT/ML 1 ML 10 ML VIAL SQ SCH ×4 (07:59→20:44)
--- NOTE | 2017-10-07 08:25 | XR ---
EXAMINATION TYPE: XR chest 1V DATE OF EXAM: 10/07/2017 COMPARISON: Prior chest x-ray 10/06/2017 HISTORY: Shortness of breath TECHNIQUE: Single frontal view of the chest is obtained. FINDINGS: Bibasilar density persists obscuring the hemidiaphragms. Interstitium is increased. The he art is enlarged. No pneumothorax. IMPRESSION: Findings could represent congestive heart failure with bibasilar effusions, correlate to exclude pneumonia versus atelectasis or edema. Follow-up recommended.
[2017-10-07] MEDS: AMIODARONE 200 MG TAB PO SCH ×2 (09:13→20:45)
[2017-10-07] MEDS: ENOXAPARIN 40 MG/0.4 ML SYRINGE SQ SCH (09:13)
[2017-10-07] MEDS: ALLOPURINOL 100 MG TAB PO SCH (09:13)
[2017-10-07] MEDS: ASPIRIN 81 MG PO SCH (09:13)
[2017-10-07] MEDS: CLOPIDOGREL 75 MG TAB PO SCH (09:13)
[2017-10-07] MEDS: DOCUSATE 100 MG CAP PO SCH ×2 (09:13→20:45)
[2017-10-07] MEDS: PANTOPRAZOLE 40 MG/10 ML VIAL IV SCH (09:14)
[2017-10-07] MEDS: predniSONE 20 MG TAB PO SCH (09:14)
[2017-10-07] MEDS: FUROSEMIDE 40 MG TAB PO SCH ×2 (09:14→17:41)
[2017-10-07] MEDS: METOPROLOL TARTRATE 50 MG TAB PO SCH ×3 (09:14→22:08)
--- NOTE | 2017-10-07 10:21 | P.GSCN ---
<Orquidea Pedraza - Last Filed: 10/07/17 09:43> History of Present Illness Consult date: 10/07/17 Reason for Consult: Mitral valve disease, surgical recommendations Requesting physician: Cristela Pulido History of present illness: This 77-year-old female patient with a previous medical history of diastolic heart failure, pulmonary hypertension, severe mitral stenosis with mild to moderate mitral regurgitation, and COPD with current tobacco dependence presented to the emergency room with increasing shortness of breath. Upon presentation to the emergency room she was extremely hypoxic and was immediately intubated. She was admitted to the intensive care unit with hypercapnic respiratory failure, treated with Lasix, antibiotics, and steroids, and was successfully extubated less than 24 hours later. Upon questioning the patient, she states that she has been having increasing dyspnea and activity limitation over the last couple of weeks. She also states that she's had increasing lower extremity edema, increased oxygen demand, and orthopnea. Apparently she has been followed by Dr. Caldwell out of [place] for mitral stenosis and the family wanted the patient transferred down to [place], however the patient was initially unstable and remained at [facility] for treatment. Dr. Scott from cardiothoracic surgery was consulted recently by Dr. Caldwell and saw the patient in his office to begin preparations for mitral valve surgery. During this admission the patient did have an echocardiogram demonstrating normal left ventricular function with an ejection fraction of 55-60%, dilated left atrium, mild to moderate mitral regurgitation, severe mitral stenosis, peak mitral valve gradient 23.18 mmHg and mean gradient 10.25 mmHg, trace tricuspid regurgitation, and no evidence of pulmonary hypertension. Dr. Scott from cardiothoracic surgery was consulted regarding the patient's mitral valve disease and because the patient is known to him. Review of Systems 14 point review systems was completed and was negative except as noted. - Constitutional Reports fatigue - Cardiovascular Reports as per HPI, Reports decreased exercise tolerance, Reports dyspnea on exertion, Reports lightheadedness, Reports shortness of breath - Respiratory Reports as per HPI Past Medical History Past Medical History: Coronary Artery Disease (CAD), Heart Failure, COPD, Diabetes Mellitus, Hyperlipidemia, Pneumonia, Thyroid Disorder Additional Past Medical History / Comment(s): Home oxygen use History of Any Multi-Drug Resistant Organisms: None Reported Past Surgical History: Breast Surgery, Heart Catheterization With Stent, Joint Replacement Additional Past Surgical History / Comment(s): Left breast masectomy, Right knee replacement, cardiac cath Past Anesthesia/Blood Transfusion Reactions: Previous Problems w/ Anesthesia, Postoperative Nausea & Vomiting (PONV) Date of Last Stent Placement:: Jul 2016 Past Psychological History: No Psychological Hx Reported Smoking Status: Former smoker Past Alcohol Use History: None Reported Past Drug Use History: None Reported Additional Drug Use History / Comment(s): States she just quit smoking on 2016, prior to that was a half pack to pack and a half a day smoker since she was 18 - Past Family History Brother(s) Family Medical History: Cancer Additional Family Medical History / Comment(s): Lung CA Sister(s) Family Medical History: Cancer, Myocardial Infarction (ID) Additional Family Medical History / Comment(s): breast CA, gastric CA Medications and Allergies Home Medications Medication Instructions Recorded Confirmed Type Albuterol Sulfate [Ventolin HFA] 2 puff INHALATION RT-TID PRN 06/02/15 10/04/17 History Calcium Carb-Vit D 500Mg-200Un 1 tab PO DAILY 06/02/15 10/04/17 History [Oscal 500+D] Levothyroxine Sodium [Synthroid] 175 mcg PO DAILY 06/02/15 10/04/17 History Lisinopril/Hydrochlorothiazide 1 tab PO DAILY 06/02/15 10/04/17 History [Lisinopril-Hctz 10-12.5 mg Tab] metFORMIN HCL [Glucophage] 500 mg PO TID 06/02/15 10/04/17 History Amiodarone [Cordarone] 200 mg PO BID #60 tab 07/31/15 10/04/17 Rx Allopurinol [Zyloprim] 100 mg PO DAILY 10/04/17 10/04/17 History Clopidogrel [Plavix] 75 mg PO DAILY 10/04/17 10/04/17 History Glimepiride [Amaryl] 4 mg PO AC-[id number] 10/04/17 10/04/17 History Allergies Allergy/AdvReac Type Severity Reaction Status Date / Time Iodinated Contrast- Oral and Allergy Rash/Hives Verified 10/04/17 18:30 IV Dye [Iodinated Contrast Media - IV Dye] iron AdvReac constipatio Verified 10/04/17 18:30 n methylprednisolone sodium AdvReac Chest Pain Verified 10/04/17 18:30 succinate [From Solu-Medrol] Surgical - Exam Vital Signs Pulse Resp BP Pulse Ox 116 H 18 152/74 56 L 10/04/17 16:41 10/04/17 16:41 10/04/17 16:41 10/04/17 16:41 - General well developed, well nourished, no distress, no pain, chronically ill, obese - Eyes PERRL, normal ocular movement - ENT decreased hearing - Neck trachea midline - Respiratory Lungs sounds diminished bilaterally with faint expiratory wheezes heard in the bases. Respirations even, nonlabored. Currently on 4 L nasal cannula with oxygen saturation 94%. Chest x-ray reviewed, bilateral pleural effusions present. - Cardiovascular S1, S2 present. Systolic murmur present. Regular rate and rhythm, sinus rhythm on telemetry. Palpable peripheral pulses bilaterally. 1+ bilateral lower extremity edema present. - Abdomen Abdomen: soft, non tender, bowel sounds - Genitourinary Dumont present draining clear, yellow urine. Output 40-75 mL/h overnight. - Rectum Deferred - Integumentary no rash, no growths - Neurologic normal coordination, normal sensation - Psychiatric oriented to time, oriented to person, oriented to place, speech is normal, memory intact Results - Labs 10/07/17 04:13 10/07/17 04:13 Abnormal Lab Results - Last 24 Hours (Table) 10/06/17 10/06/17 10/06/17 Range/Units 12:15 17:08 20:18 WBC (3.8-10.6) k/uL RBC (3.80-5.40) m/uL Hgb (11.4-16.0) gm/dL Hct (34.0-46.0) % MCHC (31.0-37.0) g/dL Neutrophils # (1.3-7.7) k/uL Lymphocytes # (1.0-4.8) k/uL Chloride (98-107) mmol/L Carbon Dioxide (22-30) mmol/L BUN (7-17) mg/dL Creatinine (0.52-1.04) mg/dL Glucose (74-99) mg/dL POC Glucose (mg/dL) 113 H 106 H 258 H (75-99) mg/dL 10/07/17 10/07/17 10/07/17 Range/Units 04:13 04:13 07:42 WBC 11.9 H (3.8-10.6) k/uL RBC 3.55 L (3.80-5.40) m/uL Hgb 10.5 L (11.4-16.0) gm/dL Hct 33.8 L (34.0-46.0) % MCHC 30.9 L (31.0-37.0) g/dL Neutrophils # 11.0 H (1.3-7.7) k/uL Lymphocytes # 0.4 L (1.0-4.8) k/uL Chloride 97 L (98-107) mmol/L Carbon Dioxide 34 H (22-30) mmol/L BUN 32 H (7-17) mg/dL Creatinine 1.38 H (0.52-1.04) mg/dL Glucose 153 H (74-99) mg/dL POC Glucose (mg/dL) 150 H (75-99) mg/dL Microbiology - Last 24 Hours (Table) 10/04/17 17:24 Gram Stain - Preliminary Sputum Sputum Culture - Final Moraxella(branhamella) catarra Diabetes panel 10/07/17 Range/Units 04:13 Sodium 142 (137-145) mmol/L Potassium 4.4 (3.5-5.1) mmol/L Chloride 97 L (98-107) mmol/L Carbon Dioxide 34 H (22-30) mmol/L BUN 32 H (7-17) mg/dL Creatinine 1.38 H (0.52-1.04) mg/dL Glucose 153 H (74-99) mg/dL Calcium 8.9 (8.4-10.2) mg/dL Calcium panel 10/07/17 Range/Units 04:13 Calcium 8.9 (8.4-10.2) mg/dL Phosphorus 4.4 (2.5-4.5) mg/dL Pituitary panel 10/07/17 Range/Units 04:13 Sodium 142 (137-145) mmol/L Potassium 4.4 (3.5-5.1) mmol/L Chloride 97 L (98-107) mmol/L Carbon Dioxide 34 H (22-30) mmol/L BUN 32 H (7-17) mg/dL Creatinine 1.38 H (0.52-1.04) mg/dL Glucose 153 H (74-99) mg/dL Calcium 8.9 (8.4-10.2) mg/dL Adrenal panel 10/07/17 Range/Units 04:13 Sodium 142 (137-145) mmol/L Potassium 4.4 (3.5-5.1) mmol/L Chloride 97 L (98-107) mmol/L Carbon Dioxide 34 H (22-30) mmol/L BUN 32 H (7-17) mg/dL Creatinine 1.38 H (0.52-1.04) mg/dL Glucose 153 H (74-99) mg/dL Calcium 8.9 (8.4-10.2) mg/dL - Imaging Chest x-ray: report reviewed, image reviewed Additional studies: Echocardiogram results reviewed. Assessment and Plan (1) Tobacco dependence in remission Current Visit: Yes Status: Chronic Code(s): F17.201 - NICOTINE DEPENDENCE, UNSPECIFIED, IN REMISSION SNOMED Code(s): 816923918 (2) On home oxygen therapy Current Visit: Yes Status: Chronic Code(s): Z99.81 - DEPENDENCE ON SUPPLEMENTAL OXYGEN SNOMED Code(s): 382454327309 (3) Acute hypercapnic respiratory failure Current Visit: Yes Status: Acute Code(s): J96.02 - ACUTE RESPIRATORY FAILURE WITH HYPERCAPNIA SNOMED Code(s): 803453575 (4) History of hypertension Current Visit: No Status: Chronic Code(s): Z86.79 - PERSONAL HISTORY OF OTHER DISEASES OF THE CIRCULATORY SYSTEM SNOMED Code(s): 216942808 (5) Hypothyroid Current Visit: Yes Status: Chronic Code(s): E03.9 - HYPOTHYROIDISM, UNSPECIFIED SNOMED Code(s): 33570229 (6) Obesity (BMI 30-39.9) Current Visit: Yes Status: Chronic Code(s): E66.9 - OBESITY, UNSPECIFIED SNOMED Code(s): 474801695 (7) Severe mitral valve stenosis Current Visit: Yes Status: Chronic Code(s): I05.0 - RHEUMATIC MITRAL STENOSIS SNOMED Code(s): 51024703 (8) COPD (chronic obstructive pulmonary disease) Current Visit: Yes Status: Chronic Code(s): J44.9 - CHRONIC OBSTRUCTIVE PULMONARY DISEASE, UNSPECIFIED SNOMED Code(s): 71405403 (9) Diabetes Current Visit: Yes Status: Chronic Code(s): E11.9 - TYPE 2 DIABETES MELLITUS WITHOUT COMPLICATIONS SNOMED Code(s): 26454376 (10) Diastolic CHF Current Visit: Yes Status: Chronic Code(s): I50.30 - UNSPECIFIED DIASTOLIC ( CONGESTIVE) HEART FAILURE SNOMED Code(s): 404993316 Plan: The patient was seen and examined at the bedside. Chart/diagnostics were reviewed. Will discuss the case with Dr. Scott who has seen her recently as well as Dr. Talbert who will be here today. Would recommend maximizing medical therapy. May transfer to [place] per the patient's/family's wishes. More recommendations to follow. Thank you Dr. Pulido for this consult. Please call us with any concerns. Time with Patient: Greater than 30 <Lino Talbert - Last Filed: 10/08/17 09:46> Surgical - Exam Vital Signs Pulse Resp BP Pulse Ox 116 H 18 152/74 56 L 10/04/17 16:41 10/04/17 16:41 10/04/17 16:41 10/04/17 16:41 Results - Labs 10/08/17 06:19 10/08/17 06:19 Abnormal Lab Results - Last 24 Hours (Table) 10/07/17 10/07/17 10/07/17 Range/Units 11:30 16:59 20:40 WBC (3.8-10.6) k/uL RBC (3.80-5.40) m/uL Hgb (11.4-16.0) gm/dL Hct (34.0-46.0) % MCHC (31.0-37.0) g/dL Neutrophils # (1.3-7.7) k/uL BUN (7-17) mg/dL Creatinine (0.52-1.04) mg/dL Glucose (74-99) mg/dL POC Glucose (mg/dL) 233 H 226 H 247 H (75-99) mg/dL 10/08/17 10/08/17 Range/Units 06:19 06:19 WBC 13.6 H (3.8-10.6) k/uL RBC 3.54 L (3.80-5.40) m/uL Hgb 10.2 L (11.4-16.0) gm/dL Hct 33.2 L (34.0-46.0) % MCHC 30.8 L (31.0-37.0) g/dL Neutrophils # 11.4 H (1.3-7.7) k/uL BUN 47 H (7-17) mg/dL Creatinine 1.60 H (0.52-1.04) mg/dL Glucose 123 H (74-99) mg/dL POC Glucose (mg/dL) (75-99) mg/dL Microbiology - Last 24 Hours (Table) 10/04/17 17:24 Gram Stain - Final Sputum Sputum Culture - Final Moraxella(branhamella) catarra Diabetes panel 10/08/17 Range/Units 06:19 Sodium 138 (137-145) mmol/L Potassium 3.9 (3.5-5.1) mmol/L Chloride 98 (98-107) mmol/L Carbon Dioxide 29 (22-30) mmol/L BUN 47 H (7-17) mg/dL Creatinine 1.60 H (0.52-1.04) mg/dL Glucose 123 H (74-99) mg/dL Calcium 9.1 (8.4-10.2) mg/dL Calcium panel 10/08/17 Range/Units 06:19 Calcium 9.1 (8.4-10.2) mg/dL Phosphorus 3.6 (2.5-4.5) mg/dL Pituitary panel 10/08/17 Range/Units 06:19 Sodium 138 (137-145) mmol/L Potassium 3.9 (3.5-5.1) mmol/L Chloride 98 (98-107) mmol/L Carbon Dioxide 29 (22-30) mmol/L BUN 47 H (7-17) mg/dL Creatinine 1.60 H (0.52-1.04) mg/dL Glucose 123 H (74-99) mg/dL Calcium 9.1 (8.4-10.2) mg/dL Adrenal panel 10/08/17 Range/Units 06:19 Sodium 138 (137-145) mmol/L Potassium 3.9 (3.5-5.1) mmol/L Chloride 98 (98-107) mmol/L Carbon Dioxide 29 (22-30) mmol/L BUN 47 H (7-17) mg/dL Creatinine 1.60 H (0.52-1.04) mg/dL Glucose 123 H (74-99) mg/dL Calcium 9.1 (8.4-10.2) mg/dL Assessment and Plan Plan: The patient was seen and examined. I agree with the above assessment and plan. The patient is a 77-year-old female, well-known to Dr. Scott, who was seen originally for severe mitral stenosis and mitral regurgitation. The plan was for some additional testing prior to surgical intervention. She was readmitted to the hospital last week with worsening shortness of breath which did require intubation. She is now extubated and breathing easily on 4 L nasal cannula. Her repeat echocardiogram does confirm severe mitral stenosis with mild to moderate mitral regurgitation. At this point she is still in need of cardiac catheterization. The patient is quite adamant that she wishes to receive her care at [facility] in [place], as this is where the majority of her physicians are located. The plan for now his continued medical management including diuresis, steroids, and antibiotics. Disposition will be determined by the primary service. She will likely be discharged home with follow-up with her physicians at [facility].
[2017-10-07 11:32] LABS: Glucose,Whole Blood 233 mg/dL (75-99)
[2017-10-07] MEDS: LEVOFLOXACIN 500 MG TAB PO SCH (12:22)
--- NOTE | 2017-10-07 12:55 | PN ---
PROGRESS NOTE Ms. Fisher is a 77-year-old female with history of severe mitral stenosis, who presented for respiratory failure. She is feeling better. Her breathing is better. She denies any symptoms of chest pain. She denies any dizziness or palpitation. She denies any nausea. She continued to be hemodynamically stable. Her blood pressure is stable. She has no evidence of atrial arrhythmia. She continues to be at this time on amiodarone 200 mg twice a day, aspirin once a day, Plavix 75 mg daily, Lasix 40 mg orally twice a day, metoprolol tartrate 50 mg 3 times a day and tapering dose of prednisone. PHYSICAL EXAMINATION: Blood pressure running in the 90s with a heart in 70s. LUNGS: No wheezes. HEART: Regular rate and rhythm, S1, S2. No S3 with systolic murmur at the apex and a diastolic rumble. ABDOMEN: Soft, nontender. EXTREMITIES: No significant edema. IMPRESSION: 1. Respiratory failure, improving, status post mechanical ventilation. 2. Severe mitral stenosis, being evaluated for surgical intervention. Talking to the patient, the surgery was recommended in the past and she has declined it until now. She understands the importance of undergoing surgical intervention. RECOMMENDATION: Will continue supportive care. Patient will be evaluated by the surgical team. She was scheduled to be seen by Dr. Scott at [facility] where her surgery will be done. Patient is stabilizing from the cardiac standpoint and depending on the timing of surgery, further recommendations will be made. MMODL / IJN: [id number] /
[2017-10-07] MEDS: SODIUM CHLORIDE 0.9% 1,000 ML IV SCH (15:40)
--- NOTE | 2017-10-07 15:40 | P.PN ---
Subjective Progress Note Date: 10/07/17 Principal diagnosis: SOB Continue to feel better. Still having left ankle pain and swelling. Objective - Vital Signs Vital signs: Vital Signs Temp 98.6 F 10/07/17 12:00 Pulse 79 10/07/17 15:00 Resp 22 10/07/17 15:00 BP 100/47 10/07/17 15:00 Pulse Ox 94 L 10/07/17 15:00 Intake & Output 10/06/17 10/07/17 10/07/17 18:59 06:59 18:59 Intake Total 965 353 3239 Output Total 869 655 420 Balance -279 -375 600 Weight 82.5 kg 83.2 kg Intake: IV 220 240 180 Sodium Chloride 0.9% 1, 220 240 180 000 ml @ 20 mls/hr IV . Q24H [facility] Rx#:[id number] Oral 370 40 840 Output: Urine 869 655 420 Other: Voiding Method Indwelling Catheter Indwelling Catheter Indwelling Catheter - Exam General: ill appearing , moderate respiratory distress, slight use of accessory muscles, obese Skin: no unusual rashes/lesions no unusual ecchymoses, warm, dry Head: atraumatic, normocephalic, symmetric Eyes: anicteric sclera, pupils equal round reactive to light ENT: Nose and ears atraumatic, Neck: No thyromegaly, no cervical lymphadenopathy, trachea midline, supple Mouth: no lip lesion, mucus membranes moist Cardiovascular: S1S2 normal, with systolic murmur normal rate and rhythm, positive posterior tibial pulse bilateral, 1+ edema, capillary refill less than 2 seconds Lungs: bibasilar crackles in the lower chest Abdominal: soft, nontender to palpation, no guarding, no appreciable organomegaly, normal bowel sounds Ext: left ankle swollen and tender to deep palpation. no gross muscle atrophy, no contractures, no clubbing or deformities. Neuro: Alert and oriented X3, non-focal. - Labs CBC & Chem 7: 10/07/17 04:13 10/07/17 04:13 Labs: Abnormal Lab Results - Last 24 Hours (Table) 10/06/17 10/06/17 10/07/17 Range/Units 17:08 20:18 04:13 WBC 11.9 H (3.8-10.6) k/uL RBC 3.55 L (3.80-5.40) m/uL Hgb 10.5 L (11.4-16.0) gm/dL Hct 33.8 L (34.0-46.0) % MCHC 30.9 L (31.0-37.0) g/dL Neutrophils # 11.0 H (1.3-7.7) k/uL Lymphocytes # 0.4 L (1.0-4.8) k/uL Chloride (98-107) mmol/L Carbon Dioxide (22-30) mmol/L BUN (7-17) mg/dL Creatinine (0.52-1.04) mg/dL Glucose (74-99) mg/dL POC Glucose (mg/dL) 106 H 258 H (75-99) mg/dL 10/07/17 10/07/17 10/07/17 Range/Units 04:13 07:42 11:30 WBC (3.8-10.6) k/uL RBC (3.80-5.40) m/uL Hgb (11.4-16.0) gm/dL Hct (34.0-46.0) % MCHC (31.0-37.0) g/dL Neutrophils # (1.3-7.7) k/uL Lymphocytes # (1.0-4.8) k/uL Chloride 97 L (98-107) mmol/L Carbon Dioxide 34 H (22-30) mmol/L BUN 32 H (7-17) mg/dL Creatinine 1.38 H (0.52-1.04) mg/dL Glucose 153 H (74-99) mg/dL POC Glucose (mg/dL) 150 H 233 H (75-99) mg/dL Microbiology - Last 24 Hours (Table) 10/04/17 17:24 Gram Stain - Final Sputum Sputum Culture - Final Moraxella(branhamella) catarra Assessment and Plan Plan: Acute exacerbation of CHF with severe mitral stenosis - Lasix 40 twice daily po - Metoprolol 50mg po tid. - Resume lisinopril 10mg daily - Strict I and O/daily weights - Echo showing mitral severe stenosis and moderate regurgitation. - Consult CT surgery---done but patient is in disagreement with her daughter on where to have the surgery, daughter wants her transferred to [place]--awaiting decision. - Repeat chest x-ray 10/07 reviewed. Acute Moraxella Catarrhalis pneumonia: Levaquin daily 750mg. Acute gout left ankle: Continue prednisone taper 40-30-20. COPD, without acute exacerbation - duonbes - prn bronchodilators - no indication for steroid at this time Diabetes mellitus type 2 -Hold orals -Sliding-scale insulin -Accu-Cheks--sugars uncontrolled today likely sec to steroids. -Start lantus 5 units daily. HTN, controlled - Continue lisinopril, metroprolol and lasix - follow blood pressures Hypothyroidism - TSH WNL - Continue synthroid CKD 3 at baseline with borderline hyperkalemia on admission--resolved. - follow BMP when on lasix - avoid additional nephrotoxic agents CAD with hx of PCI - ASA, plavix Obesity, BMI 36.9 -Structured outpatient weight loss
--- NOTE | 2017-10-07 16:17 | P.PN ---
Subjective Progress Note Date: 10/07/17 Principal diagnosis: Acute hypoxic respiratory failure, acute pulmonary edema, severe degree of mitral stenosis, history of follow-up chronic hypoxic respiratory failure on home oxygen, severe COPD 10/07/2017, patient seen and evaluated examined during the rounds she is sitting upright on the bed breathing comfortably would get short of breath on minimal activity and exertion care plan discussed with the patient and primary service at length patient at this point I would like to proceed with the menstrual mitral valve replacement surgery over here she has declined Idea of going to [facility], in that regard meetings have been arranged to discuss these issues with cardiothoracic services. Patient is a 77-year-old female with a history of diastolic congestive heart failure, pulmonary hypertension, and severe mitral stenosis along with COPD who presented to the hospital via EMS for shortness of breath. When she arrived via EMS her oxygen saturation was 56% on CPAP. She was immediately intubated. Laboratory analysis revealed a white blood cell count of 18.1. INR 1.2. Potassium 5.2. Her creatinine was 1.15 which appeared to be at baseline and glucose was slightly elevated at 207. Chest x-ray revealed diffuse pulmonary edema. Urinalysis was negative. ABG revealed hypercapnic respiratory failure. She was given a dose of Lasix, Nitro-Bid, and aspirin. Patient has been admitted to ICU with full respiratory support I reviewed the radiographic finding from yesterday and today and compared, it appears that patient was in good state of health until about the recent event of acute onset of shortness of breath there was no history of night sweats or fever or chills no history of respiratory process, patient has a history of severe degree of mitral stenosis she is being evaluated for mitral valve replacement at [facility]. Patient's primary maintenance mechanic supervisor has been contacted by the ER physician who advised patient to be stabilized before consideration of transfer She typically wears oxygen at home at 3.5 L but she has been turning it up to 5 L to help. She is only able to ambulate a short distance before becoming extremely winded. She has been sleeping in a recliner at home. She also has a chronic cough. They report that she is supposed to be going in for evaluation of possible mitral valve replacement due to severe mitral stenosis. They report she has not seen her maintenance mechanic supervisor or primary care provider since things have been worsening in the last 2 weeks. They believe that there has been no acute changes in her medications. They would like her transferred to a hospital in Dr[facility] Caldwell practices out of. We discussed that with her being recently intubated she is not stable enough for elective transfer at this point in time. They are in agreement with the plan to keep her here at this point. They do again reiterate that once she is stable they would like her transferred. Objective - Vital Signs Vital signs: Vital Signs Temp 98.6 F 10/07/17 12:00 Pulse 79 10/07/17 15:00 Resp 22 10/07/17 15:00 BP 100/47 10/07/17 15:00 Pulse Ox 94 L 10/07/17 15:00 Intake & Output 10/06/17 10/07/17 10/07/17 18:59 06:59 18:59 Intake Total 719 194 6646 Output Total 869 655 420 Balance -279 -375 600 Weight 82.5 kg 83.2 kg Intake: IV 220 240 180 Sodium Chloride 0.9% 1, 220 240 180 000 ml @ 20 mls/hr IV . Q24H [facility] Rx#:[id number] Oral 370 40 840 Output: Urine 869 655 420 Other: Voiding Method Indwelling Catheter Indwelling Catheter Indwelling Catheter - Exam General: ill appearing , moderate respiratory distress, slight use of accessory muscles, obese Skin: no unusual rashes/lesions no unusual ecchymoses, warm, dry Head: atraumatic, normocephalic, symmetric Eyes: anicteric sclera, pupils equal round reactive to light ENT: Nose and ears atraumatic, Neck: No thyromegaly, no cervical lymphadenopathy, trachea midline, supple Mouth: no lip lesion, mucus membranes moist Cardiovascular: S1S2 normal, with systolic murmur normal rate and rhythm, positive posterior tibial pulse bilateral, 1+ edema, capillary refill less than 2 seconds Lungs: bibasilar crackles in the lower chest Abdominal: soft, nontender to palpation, no guarding, no appreciable organomegaly, normal bowel sounds Ext: left ankle swollen and tender to deep palpation. no gross muscle atrophy, no contractures, no clubbing or deformities. Neuro: Alert and oriented X3, non-focal. - Labs CBC & Chem 7: 10/07/17 04:13 01/08/18 04:13 Labs: Abnormal Lab Results - Last 24 Hours (Table) 10/06/17 10/06/17 10/07/17 Range/Units 17:08 20:18 04:13 WBC 11.9 H (3.8-10.6) k/uL RBC 3.55 L (3.80-5.40) m/uL Hgb 10.5 L (11.4-16.0) gm/dL Hct 33.8 L (34.0-46.0) % MCHC 30.9 L (31.0-37.0) g/dL Neutrophils # 11.0 H (1.3-7.7) k/uL Lymphocytes # 0.4 L (1.0-4.8) k/uL Chloride (98-107) mmol/L Carbon Dioxide (22-30) mmol/L BUN (7-17) mg/dL Creatinine (0.52-1.04) mg/dL Glucose (74-99) mg/dL POC Glucose (mg/dL) 106 H 258 H (75-99) mg/dL 10/07/17 10/07/17 10/07/17 Range/Units 04:13 07:42 11:30 WBC (3.8-10.6) k/uL RBC (3.80-5.40) m/uL Hgb (11.4-16.0) gm/dL Hct (34.0-46.0) % MCHC (31.0-37.0) g/dL Neutrophils # (1.3-7.7) k/uL Lymphocytes # (1.0-4.8) k/uL Chloride 97 L (98-107) mmol/L Carbon Dioxide 34 H (22-30) mmol/L BUN 32 H (7-17) mg/dL Creatinine 1.38 H (0.52-1.04) mg/dL Glucose 153 H (74-99) mg/dL POC Glucose (mg/dL) 150 H 233 H (75-99) mg/dL Microbiology - Last 24 Hours (Table) 10/04/17 17:24 Gram Stain - Final Sputum Sputum Culture - Final Moraxella(branhamella) catarra Assessment and Plan Assessment: Acute pulmonary edema likely related to severe degree of mitral stenosis Acute hypoxic respirator failure related to above Non-STEMI less likely will repeat the troponins Leukocytosis likely related to acute pulmonary edema doubt infectious process however we'll monitor observe radiographically and we'll continue to hold antibiotics Severe degree of mitral stenosis Right greater than left pleural effusions Sputum positive for moraxella catarrahlis - tracheobronchitis Acute exacerbation of COPD Bibasilar atelectasis NSTEMI DM2 Hypertension Hypothyroidism CKD3 ASCAD with history of PCI Anemia, normocytic Plan: Continue on beta blockers Gentle diuretics DVT and peptic ulcer disease prophylaxis: Lovenox, and Protonix Continue patient on supportive care Breathing treatments Consult Dr. Scott Reviewed ultrasound chest to assess for possible thoracentesis, small amount of fluid is present we'll hold on doing thoracentesis Clear liquid diet Titrate O2 to maintain sat > or = 90% ABX: Levaquin for moraxella infection I/O, daily weight Cardiology recommendations Blood sugar, blood pressure control Cancel plan for transfer to [place] as per family/patient request, patient would like to proceed with mitral valvular replacement surgery in this institute. Critical care time spent 35 minutes Time with Patient: Greater than 30
[2017-10-07 17:01] LABS: Glucose,Whole Blood 226 mg/dL (75-99)
[2017-10-07 20:42] LABS: Glucose,Whole Blood 247 mg/dL (75-99)
[2017-10-07] MEDS: ALPRAZolam 0.5 MG TAB PO PRN (20:45)
[2017-10-07] MEDS ORDERED: INSULIN DETEMIR 100 UNIT/ML 10 ML VIAL SQ SCH (21:00)
[2017-10-08] MEDS: IPRATROPIUM-ALBUTEROL 3 ML NEB INHALATION SCH ×8 (00:53→23:51)
[2017-10-08 06:48] LABS: Basophils % (A) 0 %; Eosinophils # (A) 0.1 k/uL (0-0.7); Eosinophils % (A) 1 %; HCT 33.2 % (34.0-46.0); HGB 10.2 gm/dL (11.4-16.0); Lymphocytes # (A) 1.2 k/uL (1.0-4.8); Lymphocytes % (A) 8 %; MCH 28.9 pg (25.0-35.0); MCHC 30.8 g/dL (31.0-37.0); MCV 93.8 fL (80.0-100.0); Mean Platelet Volume 7.1; Monocytes # (A) 0.7 k/uL (0-1.0); Monocytes % (A) 5 %; Neutrophils # (A) 11.4 k/uL (1.3-7.7); Neutrophils % (A) 84 %; Platelet Count 250 k/uL (150-450); RBC 3.54 m/uL (3.80-5.40); RDW 14.8 % (11.5-15.5); WBC 13.6 k/uL (3.8-10.6)
[2017-10-08 06:51] LABS: Calcium 9.1 mg/dL (8.4-10.2); Magnesium 1.9 mg/dL (1.6-2.3); Phosphorus 3.6 mg/dL (2.5-4.5); Potassium 3.9 mmol/L (3.5-5.1)
[2017-10-08] MEDS: LEVOTHYROXINE 100 MCG TAB PO SCH (07:09)
[2017-10-08] MEDS: LEVOTHYROXINE 75 MCG TAB PO SCH (07:09)
[2017-10-08] MEDS: INSULIN ASPART 100 UNIT/ML 1 ML 10 ML VIAL SQ SCH ×5 (07:10→21:18)
[2017-10-08] MEDS: DOCUSATE 100 MG CAP PO SCH ×2 (07:44→20:56)
[2017-10-08] MEDS: ASPIRIN 81 MG PO SCH (07:44)
[2017-10-08] MEDS: ALLOPURINOL 100 MG TAB PO SCH (07:44)
[2017-10-08] MEDS: FUROSEMIDE 40 MG TAB PO SCH (07:44)
[2017-10-08] MEDS: PANTOPRAZOLE 40 MG/10 ML VIAL IV SCH (07:44)
[2017-10-08] MEDS: ENOXAPARIN 40 MG/0.4 ML SYRINGE SQ SCH (07:44)
[2017-10-08] MEDS: predniSONE 20 MG TAB PO SCH (07:44)
[2017-10-08] MEDS: CLOPIDOGREL 75 MG TAB PO SCH (07:44)
--- NOTE | 2017-10-08 08:04 | P.PN ---
Subjective Progress Note Date: 10/08/17 Principal diagnosis: Severe mitral stenosis, mild to moderate mitral valve regurgitation. History of diastolic heart failure, pulmonary hypertension, COPD, current tobacco dependence. Acute hypoxic/hypercapnic respiratory failure requiring mechanical ventilation this admission. Patient is currently sitting up in bed in no acute distress. Denies chest pain , shortness of breath. Was transferred out of ICU to [address] [place] [address] last night. No new complaints. Patient states she still wishes to have her mitral valve surgery at [facility]. Objective - Vital Signs Vital signs: Vital Signs Temp 96.7 F L 10/08/17 04:00 Pulse 80 10/08/17 04:00 Resp 18 10/08/17 04:00 BP 98/56 10/08/17 04:00 Pulse Ox 98 10/08/17 04:00 Intake & Output 10/07/17 10/08/17 10/08/17 18:59 06:59 18:59 Intake Total 1220 Output Total 545 545 Balance 675 -545 Weight 83.4 kg Intake: IV 260 Sodium Chloride 0.9% 1, 260 000 ml @ 20 mls/hr IV . Q24H [facility] Rx#:[id number] Oral 960 Output: Urine 545 545 Other: Voiding Method Indwelling Catheter Indwelling Catheter # Voids 1 - Constitutional General appearance: Present: cooperative, no acute distress, obese - Respiratory Details: Lungs sounds diminished bilaterally. Respirations even, nonlabored. Currently on 4 L nasal cannula with oxygen saturation 98%. Achieve 750 mL on incentive spirometry. Chest x-ray reviewed, bilateral pleural effusions present. - Cardiovascular Details: S1, S2 present. Regular rate and rhythm, sinus rhythm on telemetry. Palpable peripheral pulses bilaterally. Trace bilateral lower extremity edema present. SCDs present. - Gastrointestinal Gastrointestinal Comment(s): Abdomen soft, nontender, nondistended. Active bowel sounds 4 quadrants. Tolerating diet. - Genitourinary Genitourinary Comment(s): Dumont discontinued yesterday. Patient has voided with minimal residual on bladder scan. - Integumentary Integumentary Comment(s): Skin warm, dry, pink with evidence of good perfusion. - Neurologic Neurologic: Present: CNII-XII intact - Musculoskeletal Musculoskeletal: Present: strength equal bilaterally - Psychiatric Psychiatric: Present: A&O x's 3, appropriate affect, intact judgment & insight - Allied health notes Allied health notes reviewed: nursing - Labs CBC & Chem 7: 10/08/17 06:19 10/08/17 06:19 Labs: Abnormal Lab Results - Last 24 Hours (Table) 10/07/17 10/07/17 10/07/17 Range/Units 11:30 16:59 20:40 WBC (3.8-10.6) k/uL RBC (3.80-5.40) m/uL Hgb (11.4-16.0) gm/dL Hct (34.0-46.0) % MCHC (31.0-37.0) g/dL Neutrophils # (1.3-7.7) k/uL BUN (7-17) mg/dL Creatinine (0.52-1.04) mg/dL Glucose (74-99) mg/dL POC Glucose (mg/dL) 233 H 226 H 247 H (75-99) mg/dL 10/08/17 10/08/17 Range/Units 06:19 06:19 WBC 13.6 H (3.8-10.6) k/uL RBC 3.54 L (3.80-5.40) m/uL Hgb 10.2 L (11.4-16.0) gm/dL Hct 33.2 L (34.0-46.0) % MCHC 30.8 L (31.0-37.0) g/dL Neutrophils # 11.4 H (1.3-7.7) k/uL BUN 47 H (7-17) mg/dL Creatinine 1.60 H (0.52-1.04) mg/dL Glucose 123 H (74-99) mg/dL POC Glucose (mg/dL) (75-99) mg/dL Microbiology - Last 24 Hours (Table) 10/04/17 17:24 Gram Stain - Final Sputum Sputum Culture - Final Moraxella(branhamella) catarra - Imaging and Cardiology Chest x-ray: report reviewed, image reviewed Assessment and Plan (1) Tobacco dependence in remission Current Visit: Yes Status: Chronic Code(s): F17.201 - NICOTINE DEPENDENCE, UNSPECIFIED, IN REMISSION SNOMED Code(s): 683561619 (2) On home oxygen therapy Current Visit: Yes Status: Chronic Code(s): Z99.81 - DEPENDENCE ON SUPPLEMENTAL OXYGEN SNOMED Code(s): 786497069220 (3) Acute hypercapnic respiratory failure Current Visit: Yes Status: Acute Code(s): J96.02 - ACUTE RESPIRATORY FAILURE WITH HYPERCAPNIA SNOMED Code(s): 568033509 (4) History of hypertension Current Visit: No Status: Chronic Code(s): Z86.79 - PERSONAL HISTORY OF OTHER DISEASES OF THE CIRCULATORY SYSTEM SNOMED Code(s): 154253647 (5) Hypothyroid Current Visit: Yes Status: Chronic Code(s): E03.9 - HYPOTHYROIDISM, UNSPECIFIED SNOMED Code(s): 85431026 (6) Obesity (BMI 30-39.9) Current Visit: Yes Status: Chronic Code(s): E66.9 - OBESITY, UNSPECIFIED SNOMED Code(s): 609660805 (7) Severe mitral valve stenosis Current Visit: Yes Status: Chronic Code(s): I05.0 - RHEUMATIC MITRAL STENOSIS SNOMED Code(s): 10096964 (8) COPD (chronic obstructive pulmonary disease) Current Visit: Yes Status: Chronic Code(s): J44.9 - CHRONIC OBSTRUCTIVE PULMONARY DISEASE, UNSPECIFIED SNOMED Code(s): 11574460 (9) Diabetes Current Visit: Yes Status: Chronic Code(s): E11.9 - TYPE 2 DIABETES MELLITUS WITHOUT COMPLICATIONS SNOMED Code(s): 26795194 (10) Diastolic CHF Current Visit: Yes Status: Chronic Code(s): I50.30 - UNSPECIFIED DIASTOLIC ( CONGESTIVE) HEART FAILURE SNOMED Code(s): 419574277 Plan: 1. Continue aspirin, Plavix, Lasix, amiodarone, beta johanna. 2. Antibiotics, steroids per pulmonology. 3. Wean O2 as tolerated. Encourage incentive spirometry use. 4. Increase activity, ambulate as tolerated. 5. Encourage smoking cessation. 6. Medical comorbidities per primary care services. 7. Per patient's wishes, mitral valve surgery to be done at [facility]. May transfer to [facility] versus discharge to home with follow-up with Dr. Caldwell and Dr. Scott. Time with Patient: Greater than 30
--- NOTE | 2017-10-08 08:50 | XR ---
EXAMINATION TYPE: XR chest 1V DATE OF EXAM: 10/08/2017 COMPARISON: Chest x-ray 10/07/2017 HISTORY: Shortness of breath TECHNIQUE: Single frontal view of the chest is obtained. FINDINGS: Increased density is again noted at the lung bases, heart remains enlarged. No evident pne umothorax. Pulmonary vascularity and camilla are similar appearance. There are overlying cardiac leads. IMPRESSION: Similar to prior exam. Basilar effusions. There is likely associated atelectasis or kelechi a rather than pneumonia, correlate. There may be some slight interval improvement in patient's volume status.
--- NOTE | 2017-10-08 10:36 | XR ---
EXAMINATION TYPE: XR chest 1V DATE OF EXAM: 10/08/2017 COMPARISON: 10/08/2017 INDICATION: Increasing shortness of breath TECHNIQUE: Single frontal view of the chest is obtained. FINDINGS: The heart size is borderline prominent. The pulmonary vasculature is normal. Bibasilar infiltrates are present. Small right pleural effusion is likely present. A minimal left ple ural effusion is present. Findings are worsening from earlier exam. Correlate for pulmonary edema. At electasis and pneumonia could be considered. Continued follow-up is recommended. IMPRESSION: 1. Worsening bibasilar infiltrates. Pulmonary edema is favored. Atelectasis or pneumonia could be con sidered in the proper clinical setting. 2. Small right and minimal left pleural effusion.
[2017-10-08] MEDS ORDERED: FUROSEMIDE 10 MG/ML 4 ML VIAL ONE (10:38)
[2017-10-08] MEDS ORDERED: FUROSEMIDE 10 MG/ML 4 ML VIAL IV STA (10:40)
[2017-10-08] MEDS: AMIODARONE 200 MG TAB PO SCH ×2 (10:44→20:56)
[2017-10-08] MEDS: methylPREDNISolone SOD SUCCI 125 MG/2 ML VIAL IV SCH ×3 (10:44→23:31)
[2017-10-08] MEDS: METOPROLOL TARTRATE 50 MG TAB PO SCH ×3 (10:44→23:17)
--- NOTE | 2017-10-08 12:42 | P.PN ---
Subjective Progress Note Date: 10/08/17 Principal diagnosis: Severe mitral stenosis This is a 77-year-old female with history of severe mitral stenosis, who presented to the hospital with respiratory failure. She was transferred out of the intensive care unit and is now being followed on the selective care unit. Patient was seen and examined this morning, complaining of feeling very tired, quite short of breath today as well. Chest x-ray performed today showed worsening bibasilar infiltrates, pulmonary edema. Small right and minimal left pleural effusion. Patient continues to be on IV Lasix. Blood pressure 91/57, heart rate in the 70s, 100% on 4 L of oxygen. White blood cell count 13.6, hemoglobin 10.2, sodium 138, potassium 3.9, BUN 47, creatinine 1.6. Magnesium level I.9. Objective - Vital Signs Vital signs: Vital Signs Temp 97 F L 10/08/17 08:00 Pulse 96 10/08/17 10:05 Resp 18 10/08/17 08:00 BP 91/57 10/08/17 08:00 Pulse Ox 100 10/08/17 08:00 Intake & Output 10/07/17 10/08/17 10/08/17 18:59 06:59 18:59 Intake Total 1220 Output Total 545 545 Balance 675 -545 Weight 83.4 kg Intake: IV 260 Sodium Chloride 0.9% 1, 260 000 ml @ 20 mls/hr IV . Q24H [facility] Rx#:[id number] Oral 960 Output: Urine 545 545 Other: Voiding Method Indwelling Catheter Indwelling Catheter Indwelling Catheter # Voids 1 - Exam PHYSICAL EXAMINATION: HEENT: Head is atraumatic, normocephalic. Pupils equal, round. Neck is supple. There is no elevated jugular venous pressure. HEART EXAMINATION: Heart S1 and S2 systolic murmur heard as well as a diastolic rumble CHEST EXAMINATION: Lungs reveal diminished air entry bilaterally with bilateral crackles and wheezing noted ABDOMEN: Soft, nontender. Bowel sounds are heard. No organomegaly noted. EXTREMITIES: 2+ peripheral pulses with evidence of peripheral edema and no calf tenderness noted. NEUROLOGIC patient is awake, alert and oriented -3. . - Labs CBC & Chem 7: 10/08/17 06:19 10/08/17 06:19 Labs: Abnormal Lab Results - Last 24 Hours (Table) 10/07/17 10/07/17 10/08/17 Range/Units 16:59 20:40 06:19 WBC 13.6 H (3.8-10.6) k/uL RBC 3.54 L (3.80-5.40) m/uL Hgb 10.2 L (11.4-16.0) gm/dL Hct 33.2 L (34.0-46.0) % MCHC 30.8 L (31.0-37.0) g/dL Neutrophils # 11.4 H (1.3-7.7) k/uL BUN (7-17) mg/dL Creatinine (0.52-1.04) mg/dL Glucose (74-99) mg/dL POC Glucose (mg/dL) 226 H 247 H (75-99) mg/dL 10/08/17 Range/Units 06:19 WBC (3.8-10.6) k/uL RBC (3.80-5.40) m/uL Hgb (11.4-16.0) gm/dL Hct (34.0-46.0) % MCHC (31.0-37.0) g/dL Neutrophils # (1.3-7.7) k/uL BUN 47 H (7-17) mg/dL Creatinine 1.60 H (0.52-1.04) mg/dL Glucose 123 H (74-99) mg/dL POC Glucose (mg/dL) (75-99) mg/dL Microbiology - Last 24 Hours (Table) 10/04/17 17:24 Gram Stain - Final Sputum Sputum Culture - Final Moraxella(branhamella) catarra Assessment and Plan Plan: Assessment and plan #1 respiratory failure status post mechanical ventilation #2 severe mitral stenosis, being evaluated for surgical intervention, patient wishes to have this performed at [facility]. #3 COPD #4 diastolic congestive heart failure acute on chronic #5 nicotine dependence #6 questionable pneumonia on chest x-ray Plan Repeat chest x-ray shows worsening bibasilar infiltrates, pulmonary edema is favored. We will continue current dose of IV Lasix monitoring intake and output closely. She is on IV steroids. DNP note has been reviewed, I agree with a documented findings and plan of care. Patient was seen and examined.
[2017-10-08] MEDS: LEVOFLOXACIN 250 MG TAB PO SCH (13:33)
[2017-10-08 13:41] LABS: Glucose,Whole Blood 175 mg/dL (75-99)
--- NOTE | 2017-10-08 13:42 | P.PN ---
Subjective Progress Note Date: 10/08/17 Principal diagnosis: SOB She was struggling to breathe this morning and had to go back on BiPAP. When seen she was off BiPAP and was feeling better. Objective - Vital Signs Vital signs: Vital Signs Temp 97.2 F L 10/08/17 12:00 Pulse 96 10/08/17 13:33 Resp 18 10/08/17 12:00 BP 109/66 10/08/17 12:00 Pulse Ox 97 10/08/17 12:00 Intake & Output 10/07/17 10/08/17 10/08/17 18:59 06:59 18:59 Intake Total 1220 Output Total 545 545 Balance 675 -545 Weight 83.4 kg Intake: IV 260 Sodium Chloride 0.9% 1, 260 000 ml @ 20 mls/hr IV . Q24H [facility] Rx#:[id number] Oral 960 Output: Urine 545 545 Other: Voiding Method Indwelling Catheter Indwelling Catheter Indwelling Catheter # Voids 1 - Exam General: ill appearing , moderate respiratory distress, slight use of accessory muscles, obese Skin: no unusual rashes/lesions no unusual ecchymoses, warm, dry Head: atraumatic, normocephalic, symmetric Eyes: anicteric sclera, pupils equal round reactive to light ENT: Nose and ears atraumatic, Neck: No thyromegaly, no cervical lymphadenopathy, trachea midline, supple Mouth: no lip lesion, mucus membranes moist Cardiovascular: S1S2 normal, with systolic murmur normal rate and rhythm, positive posterior tibial pulse bilateral, 1+ edema, capillary refill less than 2 seconds Lungs: bibasilar crackles in the lower chest Abdominal: soft, nontender to palpation, no guarding, no appreciable organomegaly, normal bowel sounds Ext: left ankle swollen and tender to deep palpation. no gross muscle atrophy, no contractures, no clubbing or deformities. Neuro: Alert and oriented X3, non-focal. - Labs CBC & Chem 7: 10/08/17 06:19 10/08/17 06:19 Labs: Abnormal Lab Results - Last 24 Hours (Table) 10/07/17 10/07/17 10/08/17 Range/Units 16:59 20:40 06:19 WBC 13.6 H (3.8-10.6) k/uL RBC 3.54 L (3.80-5.40) m/uL Hgb 10.2 L (11.4-16.0) gm/dL Hct 33.2 L (34.0-46.0) % MCHC 30.8 L (31.0-37.0) g/dL Neutrophils # 11.4 H (1.3-7.7) k/uL BUN (7-17) mg/dL Creatinine (0.52-1.04) mg/dL Glucose (74-99) mg/dL POC Glucose (mg/dL) 226 H 247 H (75-99) mg/dL 10/08/17 Range/Units 06:19 WBC (3.8-10.6) k/uL RBC (3.80-5.40) m/uL Hgb (11.4-16.0) gm/dL Hct (34.0-46.0) % MCHC (31.0-37.0) g/dL Neutrophils # (1.3-7.7) k/uL BUN 47 H (7-17) mg/dL Creatinine 1.60 H (0.52-1.04) mg/dL Glucose 123 H (74-99) mg/dL POC Glucose (mg/dL) (75-99) mg/dL Microbiology - Last 24 Hours (Table) 10/04/17 17:24 Gram Stain - Final Sputum Sputum Culture - Final Moraxella(branhamella) catarra Assessment and Plan Plan: Acute exacerbation of CHF with severe mitral stenosis - Lasix 40 twice daily - Metoprolol 50mg po tid. - Resume lisinopril 10mg daily - Strict I and O/daily weights - Echo showing mitral severe stenosis and moderate regurgitation. - Consult CT surgery---patient switched her mind regarding having the surgery at [facility] and currently would like to have it here. - Repeat chest x-ray 10/08 reviewed. Acute Moraxella Catarrhalis pneumonia/acute urinary tract infection: Levaquin daily 750mg. Urine cultures Acute gout left ankle: Started on steroids by pulmonary for the lungs--and that should cover the acute gout COPD, without acute exacerbation - duonbes - prn bronchodilators -Started on steroids by pulmonary Diabetes mellitus type 2 -Hold orals -Sliding-scale insulin -Accu-Cheks--sugars still uncontrolled today likely sec to steroids. -Start aspart 5 units before each meal -Increase lantus to 10 units daily. HTN, controlled - Continue lisinopril, metroprolol and lasix - follow blood pressures Hypothyroidism - TSH WNL - Continue synthroid CKD 3 at baseline with borderline hyperkalemia on admission--resolved. - follow BMP when on lasix - avoid additional nephrotoxic agents CAD with hx of PCI - ASA, plavix Obesity, BMI 36.9 -Structured outpatient weight loss Discussed with RN and patient's family
[2017-10-08] MEDS: FUROSEMIDE 10 MG/ML 4 ML VIAL IV SCH (16:54)
[2017-10-08] MEDS: SODIUM CHLORIDE 0.9% 1,000 ML IV SCH (16:55)
--- NOTE | 2017-10-08 17:10 | P.PN ---
Subjective Progress Note Date: 10/08/17 (Critical care time spent 35 minutes) Principal diagnosis: Acute hypoxic respiratory failure, acute pulmonary edema, severe degree of mitral stenosis, history of follow-up chronic hypoxic respiratory failure on home oxygen, severe COPD with acute COPD exacerbation Generally 2017, patient seen and evaluated examined during the rounds as per request of the RN S patient has acute onset of shortness of breath she has clearly audible wheezing she is very anxious tachypneic tachycardic I have advised to obtain a stat portable chest x-ray in addition to that 20 mg of extra IV Lasix has been given, Lasix which was given in the form of by mouth's been switched to IV as well, extra dose of IV Solu-Medrol is given patient is being started on BiPAP as well with further intervention as per finding above- mentioned test results and report care plan discussed with the nursing staff as well as family present at bedside at length, patient reevaluated again with good response to therapy able to get her off of BiPAP machine with improvement in respiratory status 10/07/2017, patient seen and evaluated examined during the rounds she is sitting upright on the bed breathing comfortably would get short of breath on minimal activity and exertion care plan discussed with the patient and primary service at length patient at this point I would like to proceed with the menstrual mitral valve replacement surgery over here she has declined Idea of going to [facility], in that regard meetings have been arranged to discuss these issues with cardiothoracic services. Patient is a 77-year-old female with a history of diastolic congestive heart failure, pulmonary hypertension, and severe mitral stenosis along with COPD who presented to the hospital via EMS for shortness of breath. When she arrived via EMS her oxygen saturation was 56% on CPAP. She was immediately intubated. Laboratory analysis revealed a white blood cell count of 18.1. INR 1.2. Potassium 5.2. Her creatinine was 1.15 which appeared to be at baseline and glucose was slightly elevated at 207. Chest x-ray revealed diffuse pulmonary edema. Urinalysis was negative. ABG revealed hypercapnic respiratory failure. She was given a dose of Lasix, Nitro-Bid, and aspirin. Patient has been admitted to ICU with full respiratory support I reviewed the radiographic finding from yesterday and today and compared, it appears that patient was in good state of health until about the recent event of acute onset of shortness of breath there was no history of night sweats or fever or chills no history of respiratory process, patient has a history of severe degree of mitral stenosis she is being evaluated for mitral valve replacement at [facility]. Patient's primary telecom field technician has been contacted by the ER physician who advised patient to be stabilized before consideration of transfer She typically wears oxygen at home at 3.5 L but she has been turning it up to 5 L to help. She is only able to ambulate a short distance before becoming extremely winded. She has been sleeping in a recliner at home. She also has a chronic cough. They report that she is supposed to be going in for evaluation of possible mitral valve replacement due to severe mitral stenosis. They report she has not seen her telecom field technician or primary care provider since things have been worsening in the last 2 weeks. They believe that there has been no acute changes in her medications. They would like her transferred to a hospital [facility] out of. We discussed that with her being recently intubated she is not stable enough for elective transfer at this point in time. They are in agreement with the plan to keep her here at this point. They do again reiterate that once she is stable they would like her transferred. Objective - Vital Signs Vital signs: Vital Signs Temp 97.2 F L 10/08/17 12:00 Pulse 92 10/08/17 16:21 Resp 18 10/08/17 16:00 BP 109/66 10/08/17 12:00 Pulse Ox 97 10/08/17 12:00 Intake & Output 10/07/17 10/08/17 10/08/17 18:59 06:59 18:59 Intake Total 1220 Output Total 545 545 Balance 675 -545 Weight 83.4 kg Intake: IV 260 Sodium Chloride 0.9% 1, 260 000 ml @ 20 mls/hr IV . Q24H [facility] Rx#:[id number] Oral 960 Output: Urine 545 545 Other: Voiding Method Indwelling Catheter Indwelling Catheter Indwelling Catheter # Voids 1 - Exam General: ill appearing , moderate respiratory distress, slight use of accessory muscles, obese Skin: no unusual rashes/lesions no unusual ecchymoses, warm, dry Head: atraumatic, normocephalic, symmetric Eyes: anicteric sclera, pupils equal round reactive to light ENT: Nose and ears atraumatic, Neck: No thyromegaly, no cervical lymphadenopathy, trachea midline, supple Mouth: no lip lesion, mucus membranes moist Cardiovascular: S1S2 normal, with systolic murmur normal rate and rhythm, positive posterior tibial pulse bilateral, 1+ edema, capillary refill less than 2 seconds Lungs: bibasilar crackles in the lower chest with bilateral inspiratory and expiratory wheezing Abdominal: soft, nontender to palpation, no guarding, no appreciable organomegaly, normal bowel sounds Ext: left ankle swollen and tender to deep palpation. no gross muscle atrophy, no contractures, no clubbing or deformities. Neuro: Alert and oriented X3, non-focal. - Labs CBC & Chem 7: 10/08/17 06:19 10/08/17 06:19 Labs: Abnormal Lab Results - Last 24 Hours (Table) 10/07/17 10/08/17 10/08/17 Range/Units 20:40 06:19 06:19 WBC 13.6 H (3.8-10.6) k/uL RBC 3.54 L (3.80-5.40) m/uL Hgb 10.2 L (11.4-16.0) gm/dL Hct 33.2 L (34.0-46.0) % MCHC 30.8 L (31.0-37.0) g/dL Neutrophils # 11.4 H (1.3-7.7) k/uL BUN 47 H (7-17) mg/dL Creatinine 1.60 H (0.52-1.04) mg/dL Glucose 123 H (74-99) mg/dL POC Glucose (mg/dL) 247 H (75-99) mg/dL 10/08/17 Range/Units 13:35 WBC (3.8-10.6) k/uL RBC (3.80-5.40) m/uL Hgb (11.4-16.0) gm/dL Hct (34.0-46.0) % MCHC (31.0-37.0) g/dL Neutrophils # (1.3-7.7) k/uL BUN (7-17) mg/dL Creatinine (0.52-1.04) mg/dL Glucose (74-99) mg/dL POC Glucose (mg/dL) 175 H (75-99) mg/dL Assessment and Plan Assessment: Acute pulmonary edema likely related to severe degree of mitral stenosis Acute hypoxic respirator failure related to above Non-STEMI less likely will repeat the troponins Leukocytosis likely related to acute pulmonary edema doubt infectious process however we'll monitor observe radiographically and we'll continue to hold antibiotics Severe degree of mitral stenosis Right greater than left pleural effusions Sputum positive for moraxella catarrahlis - tracheobronchitis Acute exacerbation of COPD Bibasilar atelectasis NSTEMI DM2 Hypertension Hypothyroidism CKD3 ASCAD with history of PCI Anemia, normocytic Plan: Continue on beta blockers Gentle diuretics , BiPAP as needed DVT and peptic ulcer disease prophylaxis: Lovenox, and Protonix Continue patient on supportive care Breathing treatments Consult Dr. Scott Reviewed ultrasound chest to assess for possible thoracentesis, small amount of fluid is present we'll hold on doing thoracentesis Clear liquid diet Titrate O2 to maintain sat > or = 90% ABX: Levaquin for moraxella infection I/O, daily weight Cardiology recommendations Blood sugar, blood pressure control Cancel plan for transfer to [place] as per family/patient request, patient would like to proceed with mitral valvular replacement surgery in this institute. Critical care time spent 35 minutes Time with Patient: Greater than 30
[2017-10-08 17:17] LABS: Glucose,Whole Blood 219 mg/dL (75-99)
[2017-10-08 21:17] LABS: Glucose,Whole Blood 230 mg/dL (75-99)
[2017-10-08] MEDS: INSULIN DETEMIR 100 UNIT/ML 10 ML VIAL SQ SCH (21:19)
[2017-10-09] MEDS: IPRATROPIUM-ALBUTEROL 3 ML NEB INHALATION SCH ×6 (04:03→23:43)
[2017-10-09] MEDS: FUROSEMIDE 10 MG/ML 4 ML VIAL IV SCH (05:45)
[2017-10-09] MEDS: methylPREDNISolone SOD SUCCI 125 MG/2 ML VIAL IV SCH (05:45)
[2017-10-09 06:03] LABS: Glucose,Whole Blood 210 mg/dL (75-99)
[2017-10-09 06:25] LABS: Basophils % (A) 0 %; Eosinophils % (A) 0 %; HCT 33.9 % (34.0-46.0); HGB 10.5 gm/dL (11.4-16.0); Hypochromasia Slight; Lymphocytes # (A) 0.3 k/uL (1.0-4.8); Lymphocytes % (A) 3 %; MCV 93.3 fL (80.0-100.0); Mean Platelet Volume 7.8; Monocytes # (A) 0.2 k/uL (0-1.0); Monocytes % (A) 2 %; Neutrophils # (A) 10.3 k/uL (1.3-7.7); Neutrophils % (A) 95 %; Platelet Count 281 k/uL (150-450); RBC 3.63 m/uL (3.80-5.40); RDW 15.8 % (11.5-15.5); WBC 10.8 k/uL (3.8-10.6)
[2017-10-09 06:38] LABS: Albumin 3.5 g/dL (3.5-5.0); Calcium 9.3 mg/dL (8.4-10.2); Potassium 4.3 mmol/L (3.5-5.1); Total Bilirubin 0.3 mg/dL (0.2-1.3); Total Protein 6.3 g/dL (6.3-8.2)
[2017-10-09] MEDS: LEVOTHYROXINE 75 MCG TAB PO SCH (06:57)
[2017-10-09] MEDS: INSULIN ASPART 100 UNIT/ML 1 ML 10 ML VIAL SQ SCH ×7 (06:57→21:18)
[2017-10-09] MEDS: LEVOTHYROXINE 100 MCG TAB PO SCH (06:57)
[2017-10-09] MEDS: PANTOPRAZOLE 40 MG TABLET PO SCH (06:57)
--- NOTE | 2017-10-09 08:35 | CT ---
EXAMINATION TYPE: CT chest wo con DATE OF EXAM: 10/09/2017 COMPARISON: NONE HISTORY: SOB, ascending aorta calcification CT DLP: 789 mGycm. Automated Exposure Control for Dose Reduction was Utilized. TECHNIQUE: CT scan of the thorax is performed without IV contrast. FINDINGS: LUNGS: Exam is degraded by patient respiratory motion artifact making evaluation suboptimal particula rly for subcentimeter nodularity.. There is background chronic emphysematous change with small to mod erate-sized bilateral pleural effusions and reticular interstitial prominence bilaterally favoring in terstitial edema. There is associated compressive atelectasis in both lung bases. No pneumothorax is seen bilaterally. MEDIASTINUM: Lack of IV contrast is noted to limit evaluation for mediastinal and especially hilar ad enopathy. There are no definitive greater than 1 cm hilar or mediastinal lymph nodes. There are promi nent but subcentimeter prevascular, AP window, and paratracheal lymph nodes No significant pericard ial effusion is seen. There is coronary artery calcification and/or stents identified. There is cardi omegaly with moderate left atrial dilatation. There is dense calcification at level of mitral annulus . There is moderate to severe calcified atherosclerotic change of the visualized aorta. Ascending aor ta measures up to 3.5 cm in transverse diameter axial image 27. Adjacent main pulmonary artery is dil ated measuring 3.[address] findings suggesting underlying pulmonary artery hypertension. OTHER: Gallbladder is not visualized and presumed surgically absent. There is moderate multilevel spu rring in the thoracic spine. IMPRESSION: Chronic emphysematous change with suggestion of CHF exacerbation as there is cardiomegaly with small to moderate-sized bilateral pleural effusions and mild to moderate bilateral interstitial edema felt present. Correlate clinically. Left atrial dilatation and underlying pulmonary artery hyp ertension noted.
[2017-10-09] MEDS: ALLOPURINOL 100 MG TAB PO SCH (08:55)
[2017-10-09] MEDS: CLOPIDOGREL 75 MG TAB PO SCH (08:55)
[2017-10-09] MEDS: DOCUSATE 100 MG CAP PO SCH ×2 (08:55→21:17)
[2017-10-09] MEDS: ASPIRIN 81 MG PO SCH (08:55)
[2017-10-09] MEDS: AMIODARONE 200 MG TAB PO SCH ×2 (08:55→21:17)
[2017-10-09] MEDS: METOPROLOL TARTRATE 50 MG TAB PO SCH ×3 (08:56→21:17)
[2017-10-09] MEDS: ENOXAPARIN 30 MG/0.3 ML SYRINGE SQ SCH (08:56)
[2017-10-09] MEDS ORDERED: predniSONE 10 MG TAB PO SCH (09:00)
--- NOTE | 2017-10-09 09:31 | P.PN ---
Subjective Progress Note Date: 10/09/17 Principal diagnosis: SOB Breathing is better but she is constipated, last BM was last . Objective - Vital Signs Vital signs: Vital Signs Temp 97.1 F L 10/09/17 08:00 Pulse 84 10/09/17 08:00 Resp 18 10/09/17 08:00 BP 104/60 10/09/17 08:00 Pulse Ox 96 10/09/17 08:00 Intake & Output 10/08/17 10/09/17 10/09/17 18:59 06:59 18:59 Intake Total 200 240 Output Total 650 Balance -650 200 240 Weight 82.1 kg Intake: IV 20 Sodium Chloride 0.9% 1, 20 000 ml @ 20 mls/hr IV . Q24H [facility] Rx#:[id number] Oral 180 240 Output: Urine 650 Other: Voiding Method Indwelling Catheter Bedpan - Exam General: ill appearing , moderate respiratory distress, slight use of accessory muscles, obese Skin: no unusual rashes/lesions no unusual ecchymoses, warm, dry Head: atraumatic, normocephalic, symmetric Eyes: anicteric sclera, pupils equal round reactive to light ENT: Nose and ears atraumatic, Neck: No thyromegaly, no cervical lymphadenopathy, trachea midline, supple Mouth: no lip lesion, mucus membranes moist Cardiovascular: S1S2 normal, with systolic murmur normal rate and rhythm, positive posterior tibial pulse bilateral, 1+ edema, capillary refill less than 2 seconds Lungs: bibasilar crackles in the lower chest Abdominal: soft, nontender to palpation, no guarding, no appreciable organomegaly, normal bowel sounds Ext: left ankle swollen and tender to deep palpation. no gross muscle atrophy, no contractures, no clubbing or deformities. Neuro: Alert and oriented X3, non-focal. - Labs CBC & Chem 7: 10/09/17 05:37 10/09/17 05:37 Labs: Abnormal Lab Results - Last 24 Hours (Table) 10/08/17 10/08/17 10/08/17 Range/Units 13:35 16:48 21:09 WBC (3.8-10.6) k/uL RBC (3.80-5.40) m/uL Hgb (11.4-16.0) gm/dL Hct (34.0-46.0) % RDW (11.5-15.5) % Neutrophils # (1.3-7.7) k/uL Lymphocytes # (1.0-4.8) k/uL Chloride (98-107) mmol/L Carbon Dioxide (22-30) mmol/L BUN (7-17) mg/dL Creatinine (0.52-1.04) mg/dL Glucose (74-99) mg/dL POC Glucose (mg/dL) 175 H 219 H 230 H (75-99) mg/dL 10/09/17 10/09/17 10/09/17 Range/Units 05:37 05:37 05:58 WBC 10.8 H (3.8-10.6) k/uL RBC 3.63 L (3.80-5.40) m/uL Hgb 10.5 L (11.4-16.0) gm/dL Hct 33.9 L (34.0-46.0) % RDW 15.8 H (11.5-15.5) % Neutrophils # 10.3 H (1.3-7.7) k/uL Lymphocytes # 0.3 L (1.0-4.8) k/uL Chloride 95 L (98-107) mmol/L Carbon Dioxide 34 H (22-30) mmol/L BUN 54 H (7-17) mg/dL Creatinine 1.63 H (0.52-1.04) mg/dL Glucose 215 H (74-99) mg/dL POC Glucose (mg/dL) 210 H (75-99) mg/dL Microbiology - Last 24 Hours (Table) 10/08/17 13:00 Urine Culture - Preliminary Urine,Voided Assessment and Plan Plan: Acute exacerbation of CHF with severe mitral stenosis - Decrease lasix dose to 40 mg IV daily - Continue metoprolol 50mg po tid and lisinopril 10mg daily - Strict I and O/daily weights - Echo showing mitral severe stenosis and moderate regurgitation. - Consult CT surgery---underwent CT eval of the valve. - Repeat chest x-ray 10/09 viewed--improved.. Acute Moraxella Catarrhalis pneumonia/acute urinary tract infection: Levaquin daily Urine cultures Acute gout left ankle: Started on steroids by pulmonary for the lungs--and that should cover the acute gout COPD, without acute exacerbation - duonbes - prn bronchodilators -Decrease solumedrol dose to 40mg IV q6hrs. Diabetes mellitus type 2 -Hold orals -Sliding-scale insulin -Accu-Cheks--sugars still uncontrolled today likely sec to steroids. -Cut down steroids dose as above -Continue aspart 5 units before each meal and lantus to 10 units daily. HTN, controlled - Continue lisinopril, metroprolol and lasix - follow blood pressures Hypothyroidism - TSH WNL - Continue synthroid CKD 3 at baseline with borderline hyperkalemia on admission--resolved. - Cr worsening likely sec to diuresis -Cut down on diuresis -Monitor CAD with hx of PCI - ASA, plavix Obesity, BMI 36.9 -Structured outpatient weight loss Constipation: Start laxatives. DVT prophylaxis: Lovenox s/q Discussed with RN and patient's family
--- NOTE | 2017-10-09 09:36 | XR ---
EXAMINATION TYPE: XR chest 1V DATE OF EXAM: 10/09/2017 COMPARISON: Prior chest x-ray 10/08/2017 HISTORY: Shortness of breath TECHNIQUE: Single frontal view of the chest is obtained. FINDINGS: Heart remains enlarged. Interstitium is increased. Bibasilar increased density is present. No pneumothorax. There are overlying cardiac leads. IMPRESSION: Findings suggest congestive heart failure, there may be slight interval improvement in a eration
[2017-10-09] MEDS: SENNOSIDES 8.6 MG TAB PO SCH ×2 (11:18→21:17)
[2017-10-09] MEDS: POLYETHYLENE GLYCOL 3350 17 GM POWD.PACK PO SCH (11:22)
[2017-10-09 11:40] LABS: Glucose,Whole Blood 209 mg/dL (75-99)
[2017-10-09] MEDS: LEVOFLOXACIN 250 MG TAB PO SCH (11:48)
[2017-10-09] MEDS: methylPREDNISolone SOD SUCCI 40 MG/ML 1 ML VIAL IV SCH ×3 (11:48→23:00)
--- NOTE | 2017-10-09 12:23 | P.PN ---
<Oqruidea Pedraza - Last Filed: 10/09/17 12:19> Subjective Progress Note Date: 10/09/17 Principal diagnosis: Severe mitral stenosis, mild to moderate mitral valve regurgitation. History of diastolic heart failure, pulmonary hypertension, COPD, current tobacco dependence. Acute hypoxic/hypercapnic respiratory failure requiring mechanical ventilation this admission. Patient is currently sitting up in bed in no acute distress. Denies chest pain , shortness of breath. No new complaints. Patient states she still wishes to have her mitral valve surgery at [facility]. Did require BiPAP for short amount of time yesterday. Patient had CT of the chest completed this morning to assess aortic calcification. Objective - Vital Signs Vital signs: Vital Signs Temp 97.5 F L 10/09/17 11:22 Pulse 64 10/09/17 11:22 Resp 18 10/09/17 11:22 BP 89/58 10/09/17 11:22 Pulse Ox 96 10/09/17 11:22 Intake & Output 10/08/17 10/09/17 10/09/17 18:59 06:59 18:59 Intake Total 200 240 Output Total 650 Balance -650 200 240 Weight 82.1 kg Intake: IV 20 Sodium Chloride 0.9% 1, 20 000 ml @ 20 mls/hr IV . Q24H [facility] Rx#:[id number] Oral 180 240 Output: Urine 650 Other: Voiding Method Indwelling Catheter Bedpan - Constitutional General appearance: Present: cooperative, no acute distress, obese - Respiratory Details: Lungs sounds diminished and coarse bilaterally. Respirations even, nonlabored. Currently on 4 L with oxygen saturation 96%. Able to achieve 750 mL on her incentive spirometry. - Cardiovascular Details: S1, S2 present. Regular rate and rhythm, sinus rhythm on telemetry. Palpable peripheral pulses bilaterally. Trace bilateral lower extremity edema present. - Gastrointestinal Gastrointestinal Comment(s): Abdomen soft, nontender, nondistended. Active bowel sounds 4 quadrants. Tolerating diet. - Genitourinary Genitourinary Comment(s): Continues to void clear, yellow urine. - Neurologic Neurologic: Present: CNII-XII intact - Musculoskeletal Musculoskeletal: Present: strength equal bilaterally - Psychiatric Psychiatric: Present: A&O x's 3, appropriate affect, intact judgment & insight - Allied health notes Allied health notes reviewed: nursing - Labs CBC & Chem 7: 10/09/17 05:37 10/09/17 05:37 Labs: Abnormal Lab Results - Last 24 Hours (Table) 10/08/17 10/08/17 10/08/17 Range/Units 13:35 16:48 21:09 WBC (3.8-10.6) k/uL RBC (3.80-5.40) m/uL Hgb (11.4-16.0) gm/dL Hct (34.0-46.0) % RDW (11.5-15.5) % Neutrophils # (1.3-7.7) k/uL Lymphocytes # (1.0-4.8) k/uL Chloride (98-107) mmol/L Carbon Dioxide (22-30) mmol/L BUN (7-17) mg/dL Creatinine (0.52-1.04) mg/dL Glucose (74-99) mg/dL POC Glucose (mg/dL) 175 H 219 H 230 H (75-99) mg/dL 10/09/17 10/09/17 10/09/17 Range/Units 05:37 05:37 05:58 WBC 10.8 H (3.8-10.6) k/uL RBC 3.63 L (3.80-5.40) m/uL Hgb 10.5 L (11.4-16.0) gm/dL Hct 33.9 L (34.0-46.0) % RDW 15.8 H (11.5-15.5) % Neutrophils # 10.3 H (1.3-7.7) k/uL Lymphocytes # 0.3 L (1.0-4.8) k/uL Chloride 95 L (98-107) mmol/L Carbon Dioxide 34 H (22-30) mmol/L BUN 54 H (7-17) mg/dL Creatinine 1.63 H (0.52-1.04) mg/dL Glucose 215 H (74-99) mg/dL POC Glucose (mg/dL) 210 H (75-99) mg/dL 10/09/17 Range/Units 11:33 WBC (3.8-10.6) k/uL RBC (3.80-5.40) m/uL Hgb (11.4-16.0) gm/dL Hct (34.0-46.0) % RDW (11.5-15.5) % Neutrophils # (1.3-7.7) k/uL Lymphocytes # (1.0-4.8) k/uL Chloride (98-107) mmol/L Carbon Dioxide (22-30) mmol/L BUN (7-17) mg/dL Creatinine (0.52-1.04) mg/dL Glucose (74-99) mg/dL POC Glucose (mg/dL) 209 H (75-99) mg/dL Microbiology - Last 24 Hours (Table) 10/08/17 13:00 Urine Culture - Preliminary Urine,Voided - Imaging and Cardiology Chest x-ray: report reviewed, image reviewed CT scan - chest: report reviewed, image reviewed Assessment and Plan (1) Tobacco dependence in remission Current Visit: Yes Status: Chronic Code(s): F17.201 - NICOTINE DEPENDENCE, UNSPECIFIED, IN REMISSION SNOMED Code(s): 145363103 (2) On home oxygen therapy Current Visit: Yes Status: Chronic Code(s): Z99.81 - DEPENDENCE ON SUPPLEMENTAL OXYGEN SNOMED Code(s): 430145356893 (3) Acute hypercapnic respiratory failure Current Visit: Yes Status: Acute Code(s): J96.02 - ACUTE RESPIRATORY FAILURE WITH HYPERCAPNIA SNOMED Code(s): 684643053 (4) History of hypertension Current Visit: No Status: Chronic Code(s): Z86.79 - PERSONAL HISTORY OF OTHER DISEASES OF THE CIRCULATORY SYSTEM SNOMED Code(s): 487728001 (5) Hypothyroid Current Visit: Yes Status: Chronic Code(s): E03.9 - HYPOTHYROIDISM, UNSPECIFIED SNOMED Code(s): 79984803 (6) Obesity (BMI 30-39.9) Current Visit: Yes Status: Chronic Code(s): E66.9 - OBESITY, UNSPECIFIED SNOMED Code(s): 517153673 (7) Severe mitral valve stenosis Current Visit: Yes Status: Chronic Code(s): I05.0 - RHEUMATIC MITRAL STENOSIS SNOMED Code(s): 52459512 (8) COPD (chronic obstructive pulmonary disease) Current Visit: Yes Status: Chronic Code(s): J44.9 - CHRONIC OBSTRUCTIVE PULMONARY DISEASE, UNSPECIFIED SNOMED Code(s): 61262786 (9) Diabetes Current Visit: Yes Status: Chronic Code(s): E11.9 - TYPE 2 DIABETES MELLITUS WITHOUT COMPLICATIONS SNOMED Code(s): 70818344 (10) Diastolic CHF Current Visit: Yes Status: Chronic Code(s): I50.30 - UNSPECIFIED DIASTOLIC ( CONGESTIVE) HEART FAILURE SNOMED Code(s): 227025379 Plan: 1. Continue aspirin, Plavix, Lasix, amiodarone, beta johanna. 2. Antibiotics, steroids per pulmonology. 3. Wean O2 as tolerated. Encourage incentive spirometry use. 4. Increase activity, ambulate as tolerated. 5. Encourage smoking cessation. 6. Medical comorbidities per primary care services. 7. Per patient's wishes, mitral valve surgery to be done at [facility]. May transfer to [facility] or discharge to home with follow-up with Dr. Caldwell and Dr. Scott. Time with Patient: Greater than 30 <Lino Talbert - Last Filed: 10/09/17 17:20> Objective - Vital Signs Vital signs: Vital Signs Temp 97.2 F L 10/09/17 15:50 Pulse 86 10/09/17 16:26 Resp 18 10/09/17 15:50 BP 102/63 10/09/17 15:50 Pulse Ox 94 L 10/09/17 15:50 Intake & Output 10/08/17 10/09/17 10/09/17 18:59 06:59 18:59 Intake Total 200 600 Output Total 650 Balance -650 200 600 Weight 82.1 kg Intake: IV 20 Sodium Chloride 0.9% 1, 20 000 ml @ 20 mls/hr IV . Q24H [facility] Rx#:[id number] Oral 180 600 Output: Urine 650 Other: Voiding Method Indwelling Catheter Bedpan - Labs CBC & Chem 7: 10/09/17 05:37 10/09/17 05:37 Labs: Abnormal Lab Results - Last 24 Hours (Table) 10/08/17 10/09/17 10/09/17 Range/Units 21:09 05:37 05:37 WBC 10.8 H (3.8-10.6) k/uL RBC 3.63 L (3.80-5.40) m/uL Hgb 10.5 L (11.4-16.0) gm/dL Hct 33.9 L (34.0-46.0) % RDW 15.8 H (11.5-15.5) % Neutrophils # 10.3 H (1.3-7.7) k/uL Lymphocytes # 0.3 L (1.0-4.8) k/uL Chloride 95 L (98-107) mmol/L Carbon Dioxide 34 H (22-30) mmol/L BUN 54 H (7-17) mg/dL Creatinine 1.63 H (0.52-1.04) mg/dL Glucose 215 H (74-99) mg/dL POC Glucose (mg/dL) 230 H (75-99) mg/dL 10/09/17 10/09/17 10/09/17 Range/Units 05:58 11:33 16:10 WBC (3.8-10.6) k/uL RBC (3.80-5.40) m/uL Hgb (11.4-16.0) gm/dL Hct (34.0-46.0) % RDW (11.5-15.5) % Neutrophils # (1.3-7.7) k/uL Lymphocytes # (1.0-4.8) k/uL Chloride (98-107) mmol/L Carbon Dioxide (22-30) mmol/L BUN (7-17) mg/dL Creatinine (0.52-1.04) mg/dL Glucose (74-99) mg/dL POC Glucose (mg/dL) 210 H 209 H 257 H (75-99) mg/dL Microbiology - Last 24 Hours (Table) 10/08/17 13:00 Urine Culture - Preliminary Urine,Voided Assessment and Plan Plan: The patient's computed tomography scan of the chest performed today reveals a significant amount of calcium involving the ascending aorta. The patient still wishes to receive additional care at [facility] in [place]. Disposition will be determined by the primary service. She'll recommendations will be made once all her tests and evaluations are complete.
--- NOTE | 2017-10-09 15:02 | P.PN ---
Subjective Progress Note Date: 10/09/17 Principal diagnosis: Severe mitral stenosis This is a 77-year-old female with history of severe mitral stenosis, who presented to the hospital with respiratory failure. She was transferred out of the intensive care unit and is now being followed on the selective care unit. Patient was seen and examined this morning, complaining of feeling very tired, quite short of breath today as well. Chest x-ray performed today showed worsening bibasilar infiltrates, pulmonary edema. Small right and minimal left pleural effusion. Patient continues to be on IV Lasix. Blood pressure 91/57, heart rate in the 70s, 100% on 4 L of oxygen. White blood cell count 13.6, hemoglobin 10.2, sodium 138, potassium 3.9, BUN 47, creatinine 1.6. Magnesium level I.9. 10/09/2017 Patient seen and examined this morning, overall doing better today. She did require BiPAP yesterday, overall saturations are much improved today. Patient doesn't need to have her up and mitral valve surgery and she still wishes to have this done at [facility]. Our recommendation is a possible discharge home soon, and patient needs to follow-up with [facility] as soon as possible. Objective - Vital Signs Vital signs: Vital Signs Temp 97.5 F L 10/09/17 11:22 Pulse 88 10/09/17 13:39 Resp 18 10/09/17 12:00 BP 89/58 10/09/17 11:22 Pulse Ox 96 10/09/17 11:22 Intake & Output 10/08/17 10/09/17 10/09/17 18:59 06:59 18:59 Intake Total 200 600 Output Total 650 Balance -650 200 600 Weight 82.1 kg Intake: IV 20 Sodium Chloride 0.9% 1, 20 000 ml @ 20 mls/hr IV . Q24H [facility] Rx#:[id number] Oral 180 600 Output: Urine 650 Other: Voiding Method Indwelling Catheter Bedpan - Exam PHYSICAL EXAMINATION: HEENT: Head is atraumatic, normocephalic. Pupils equal, round. Neck is supple. There is no elevated jugular venous pressure. HEART EXAMINATION: Heart S1 and S2 systolic murmur heard as well as a diastolic rumble CHEST EXAMINATION: Lungs reveal diminished air entry bilaterally with bilateral crackles and wheezing noted ABDOMEN: Soft, nontender. Bowel sounds are heard. No organomegaly noted. EXTREMITIES: 2+ peripheral pulses with evidence of peripheral edema and no calf tenderness noted. NEUROLOGIC patient is awake, alert and oriented -3. . - Labs CBC & Chem 7: 10/09/17 05:37 10/09/17 05:37 Labs: Abnormal Lab Results - Last 24 Hours (Table) 10/08/17 10/08/17 10/09/17 Range/Units 16:48 21:09 05:37 WBC 10.8 H (3.8-10.6) k/uL RBC 3.63 L (3.80-5.40) m/uL Hgb 10.5 L (11.4-16.0) gm/dL Hct 33.9 L (34.0-46.0) % RDW 15.8 H (11.5-15.5) % Neutrophils # 10.3 H (1.3-7.7) k/uL Lymphocytes # 0.3 L (1.0-4.8) k/uL Chloride (98-107) mmol/L Carbon Dioxide (22-30) mmol/L BUN (7-17) mg/dL Creatinine (0.52-1.04) mg/dL Glucose (74-99) mg/dL POC Glucose (mg/dL) 219 H 230 H (75-99) mg/dL 10/09/17 10/09/17 10/09/17 Range/Units 05:37 05:58 11:33 WBC (3.8-10.6) k/uL RBC (3.80-5.40) m/uL Hgb (11.4-16.0) gm/dL Hct (34.0-46.0) % RDW (11.5-15.5) % Neutrophils # (1.3-7.7) k/uL Lymphocytes # (1.0-4.8) k/uL Chloride 95 L (98-107) mmol/L Carbon Dioxide 34 H (22-30) mmol/L BUN 54 H (7-17) mg/dL Creatinine 1.63 H (0.52-1.04) mg/dL Glucose 215 H (74-99) mg/dL POC Glucose (mg/dL) 210 H 209 H (75-99) mg/dL Microbiology - Last 24 Hours (Table) 10/08/17 13:00 Urine Culture - Preliminary Urine,Voided Assessment and Plan Plan: Assessment and plan #1 respiratory failure status post mechanical ventilation #2 severe mitral stenosis, being evaluated for surgical intervention, patient wishes to have this performed at [facility]. #3 COPD #4 diastolic congestive heart failure acute on chronic #5 nicotine dependence #6 questionable pneumonia on chest x-ray Plan Cardiology's perspective, we'll recommend to continue current dose of IV Lasix for 24 hours, plan for possible discharge home soon, patient has been instructed to follow-up at [facility] for her surgery soon after discharge. DNP note has been reviewed, I agree with a documented findings and plan of care. Patient was seen and examined.
[2017-10-09 16:22] LABS: Glucose,Whole Blood 257 mg/dL (75-99)
[2017-10-09] MEDS: SODIUM CHLORIDE 0.9% 1,000 ML IV SCH (16:46)
--- NOTE | 2017-10-09 16:56 | P.PN ---
Subjective Progress Note Date: 10/09/17 Principal diagnosis: Acute hypoxic respiratory failure, acute pulmonary edema, severe degree of mitral stenosis, history of follow-up chronic hypoxic respiratory failure on home oxygen, severe COPD with acute COPD exacerbation 10/09/2017, patient seen and evaluated examined during the rounds she is undergoing breathing treatments she is off of BiPAP and supplemental oxygen she is breathing more comfortably she denies any chest pain, she has expressed now her desire to get the surgery done at [facility] overall his plasma she stabilized and then will be discharged home and she will follow up and go to her primary adventure education teacher orthopedic shoes salesperson and her cardiothoracic surgeon on her own October 08 2017, patient seen and evaluated examined during the rounds as per request of the RN S patient has acute onset of shortness of breath she has clearly audible wheezing she is very anxious tachypneic tachycardic I have advised to obtain a stat portable chest x-ray in addition to that 20 mg of extra IV Lasix has been given, Lasix which was given in the form of by mouth's been switched to IV as well, extra dose of IV Solu-Medrol is given patient is being started on BiPAP as well with further intervention as per finding above- mentioned test results and report care plan discussed with the nursing staff as well as family present at bedside at length, patient reevaluated again with good response to therapy able to get her off of BiPAP machine with improvement in respiratory status 10/07/2017, patient seen and evaluated examined during the rounds she is sitting upright on the bed breathing comfortably would get short of breath on minimal activity and exertion care plan discussed with the patient and primary service at length patient at this point I would like to proceed with the menstrual mitral valve replacement surgery over here she has declined Idea of going to [facility], in that regard meetings have been arranged to discuss these issues with cardiothoracic services. Patient is a 77-year-old female with a history of diastolic congestive heart failure, pulmonary hypertension, and severe mitral stenosis along with COPD who presented to the hospital via EMS for shortness of breath. When she arrived via EMS her oxygen saturation was 56% on CPAP. She was immediately intubated. Laboratory analysis revealed a white blood cell count of 18.1. INR 1.2. Potassium 5.2. Her creatinine was 1.15 which appeared to be at baseline and glucose was slightly elevated at 207. Chest x-ray revealed diffuse pulmonary edema. Urinalysis was negative. ABG revealed hypercapnic respiratory failure. She was given a dose of Lasix, Nitro-Bid, and aspirin. Patient has been admitted to ICU with full respiratory support I reviewed the radiographic finding from yesterday and today and compared, it appears that patient was in good state of health until about the recent event of acute onset of shortness of breath there was no history of night sweats or fever or chills no history of respiratory process, patient has a history of severe degree of mitral stenosis she is being evaluated for mitral valve replacement at [facility]. Patient's primary adventure education teacher has been contacted by the ER physician who advised patient to be stabilized before consideration of transfer She typically wears oxygen at home at 3.5 L but she has been turning it up to 5 L to help. She is only able to ambulate a short distance before becoming extremely winded. She has been sleeping in a recliner at home. She also has a chronic cough. They report that she is supposed to be going in for evaluation of possible mitral valve replacement due to severe mitral stenosis. They report she has not seen her adventure education teacher or primary care provider since things have been worsening in the last 2 weeks. They believe that there has been no acute changes in her medications. They would like her transferred to a hospital in Dr. Caldwell practices out of. We discussed that with her being recently intubated she is not stable enough for elective transfer at this point in time. They are in agreement with the plan to keep her here at this point. They do again reiterate that once she is stable they would like her transferred. Objective - Vital Signs Vital signs: Vital Signs Temp 97.2 F L 10/09/17 15:50 Pulse 86 10/09/17 16:26 Resp 18 10/09/17 15:50 BP 102/63 10/09/17 15:50 Pulse Ox 94 L 10/09/17 15:50 Intake & Output 10/08/17 10/09/17 10/09/17 18:59 06:59 18:59 Intake Total 200 600 Output Total 650 Balance -650 200 600 Weight 82.1 kg Intake: IV 20 Sodium Chloride 0.9% 1, 20 000 ml @ 20 mls/hr IV . Q24H [facility] Rx#:[id number] Oral 180 600 Output: Urine 650 Other: Voiding Method Indwelling Catheter Bedpan - Exam General: ill appearing , moderate respiratory distress, slight use of accessory muscles, obese Skin: no unusual rashes/lesions no unusual ecchymoses, warm, dry Head: atraumatic, normocephalic, symmetric Eyes: anicteric sclera, pupils equal round reactive to light ENT: Nose and ears atraumatic, Neck: No thyromegaly, no cervical lymphadenopathy, trachea midline, supple Mouth: no lip lesion, mucus membranes moist Cardiovascular: S1S2 normal, with systolic murmur normal rate and rhythm, positive posterior tibial pulse bilateral, 1+ edema, capillary refill less than 2 seconds Lungs: bibasilar crackles in the lower chest with bilateral inspiratory and expiratory wheezing Abdominal: soft, nontender to palpation, no guarding, no appreciable organomegaly, normal bowel sounds Ext: left ankle swollen and tender to deep palpation. no gross muscle atrophy, no contractures, no clubbing or deformities. Neuro: Alert and oriented X3, non-focal. - Labs CBC & Chem 7: 10/09/17 05:37 10/09/17 05:37 Labs: Abnormal Lab Results - Last 24 Hours (Table) 10/08/17 10/08/17 10/09/17 Range/Units 16:48 21:09 05:37 WBC 10.8 H (3.8-10.6) k/uL RBC 3.63 L (3.80-5.40) m/uL Hgb 10.5 L (11.4-16.0) gm/dL Hct 33.9 L (34.0-46.0) % RDW 15.8 H (11.5-15.5) % Neutrophils # 10.3 H (1.3-7.7) k/uL Lymphocytes # 0.3 L (1.0-4.8) k/uL Chloride (98-107) mmol/L Carbon Dioxide (22-30) mmol/L BUN (7-17) mg/dL Creatinine (0.52-1.04) mg/dL Glucose (74-99) mg/dL POC Glucose (mg/dL) 219 H 230 H (75-99) mg/dL 10/09/17 10/09/17 10/09/17 Range/Units 05:37 05:58 11:33 WBC (3.8-10.6) k/uL RBC (3.80-5.40) m/uL Hgb (11.4-16.0) gm/dL Hct (34.0-46.0) % RDW (11.5-15.5) % Neutrophils # (1.3-7.7) k/uL Lymphocytes # (1.0-4.8) k/uL Chloride 95 L (98-107) mmol/L Carbon Dioxide 34 H (22-30) mmol/L BUN 54 H (7-17) mg/dL Creatinine 1.63 H (0.52-1.04) mg/dL Glucose 215 H (74-99) mg/dL POC Glucose (mg/dL) 210 H 209 H (75-99) mg/dL 10/09/17 Range/Units 16:10 WBC (3.8-10.6) k/uL RBC (3.80-5.40) m/uL Hgb (11.4-16.0) gm/dL Hct (34.0-46.0) % RDW (11.5-15.5) % Neutrophils # (1.3-7.7) k/uL Lymphocytes # (1.0-4.8) k/uL Chloride (98-107) mmol/L Carbon Dioxide (22-30) mmol/L BUN (7-17) mg/dL Creatinine (0.52-1.04) mg/dL Glucose (74-99) mg/dL POC Glucose (mg/dL) 257 H (75-99) mg/dL Microbiology - Last 24 Hours (Table) 10/08/17 13:00 Urine Culture - Preliminary Urine,Voided Assessment and Plan Assessment: Acute pulmonary edema likely related to severe degree of mitral stenosis Acute hypoxic respirator failure related to above Non-STEMI less likely will repeat the troponins Leukocytosis likely related to acute pulmonary edema doubt infectious process however we'll monitor observe radiographically and we'll continue to hold antibiotics Severe degree of mitral stenosis Right greater than left pleural effusions Sputum positive for moraxella catarrahlis - tracheobronchitis Acute exacerbation of COPD Bibasilar atelectasis NSTEMI DM2 Hypertension Hypothyroidism CKD3 ASCAD with history of PCI Anemia, normocytic Plan: Continue on beta blockers Gentle diuretics , BiPAP as needed DVT and peptic ulcer disease prophylaxis: Lovenox, and Protonix Continue patient on supportive care Breathing treatments Consult Dr. Scott Reviewed ultrasound chest to assess for possible thoracentesis, small amount of fluid is present we'll hold on doing thoracentesis Clear liquid diet Titrate O2 to maintain sat > or = 90% ABX: Levaquin for moraxella infection I/O, daily weight Cardiology recommendations Blood sugar, blood pressure control Cancel plan for transfer to [place] as per family/patient request, patient would like to proceed with mitral valvular replacement surgery in this institute. Continue use BiPAP as needed continue current care noted her plans for more definitive intervention and mitral valve surgery at [facility] [place] Time with Patient: Greater than 30
[2017-10-09 20:53] LABS: Glucose,Whole Blood 182 mg/dL (75-99)
[2017-10-09] MEDS: INSULIN DETEMIR 100 UNIT/ML 10 ML VIAL SQ SCH (21:18)
[2017-10-10] MEDS: IPRATROPIUM-ALBUTEROL 3 ML NEB INHALATION SCH ×3 (03:33→12:53)
[2017-10-10] MEDS: methylPREDNISolone SOD SUCCI 40 MG/ML 1 ML VIAL IV SCH ×2 (05:39→12:15)
[2017-10-10 05:56] LABS: Glucose,Whole Blood 182 mg/dL (75-99)
[2017-10-10] MEDS: LEVOTHYROXINE 100 MCG TAB PO SCH (07:01)
[2017-10-10] MEDS: LEVOTHYROXINE 75 MCG TAB PO SCH (07:01)
[2017-10-10] MEDS: PANTOPRAZOLE 40 MG TABLET PO SCH (07:01)
[2017-10-10] MEDS: INSULIN ASPART 100 UNIT/ML 1 ML 10 ML VIAL SQ SCH ×4 (07:02→12:13)
[2017-10-10 07:08] LABS: Calcium 9.6 mg/dL (8.4-10.2); Magnesium 2.2 mg/dL (1.6-2.3); Phosphorus 4.5 mg/dL (2.5-4.5); Potassium 4.4 mmol/L (3.5-5.1)
[2017-10-10] MEDS: NITROGLYCERIN OINT 1 INCH/GM PACKET TOPICAL SCH (07:11)
[2017-10-10] MEDS: SENNOSIDES 8.6 MG TAB PO SCH (08:39)
[2017-10-10] MEDS: ENOXAPARIN 30 MG/0.3 ML SYRINGE SQ SCH (08:40)
[2017-10-10] MEDS: ALLOPURINOL 100 MG TAB PO SCH (08:40)
[2017-10-10] MEDS: ASPIRIN 81 MG PO SCH (08:40)
[2017-10-10] MEDS: AMIODARONE 200 MG TAB PO SCH (08:40)
[2017-10-10] MEDS: METOPROLOL TARTRATE 50 MG TAB PO SCH (08:40)
[2017-10-10] MEDS: DOCUSATE 100 MG CAP PO SCH (08:40)
[2017-10-10] MEDS ORDERED: FUROSEMIDE 10 MG/ML 4 ML VIAL IV SCH (09:00)
--- NOTE | 2017-10-10 09:29 | P.PN ---
Subjective Progress Note Date: 10/10/17 Principal diagnosis: Severe mitral stenosis, mild to moderate mitral valve regurgitation. History of diastolic heart failure, pulmonary hypertension, COPD, current tobacco dependence. Acute hypoxic/hypercapnic respiratory failure requiring mechanical ventilation this admission. Patient is currently sitting up in bed in no acute distress. Denies chest pain , shortness of breath. No new complaints. Patient states she still wishes to have her mitral valve surgery at [facility]. States she feels ready to go home today and will follow up with Drs. Caldwell, Jessee, and Sonia. Objective - Vital Signs Vital signs: Vital Signs Temp 96.2 F L 10/10/17 08:00 Pulse 78 10/10/17 09:01 Resp 18 10/10/17 08:51 BP 100/61 10/10/17 08:00 Pulse Ox 96 10/10/17 08:51 Intake & Output 10/09/17 10/10/17 10/10/17 18:59 06:59 18:59 Intake Total 840 20 240 Balance 840 20 240 Weight 84.5 kg Intake: IV 20 Sodium Chloride 0.9% 1, 20 000 ml @ 20 mls/hr IV . Q24H [facility] Rx#:[id number] Oral 840 240 Other: Voiding Method Bedpan - Constitutional General appearance: Present: cooperative, no acute distress, obese - Respiratory Details: Lungs sounds diminished bilaterally. Respirations even, nonlabored. Currently on 4 L nasal cannula with oxygen saturation 98%. Able to achieve 750 mL on her incentive spirometry. - Cardiovascular Details: S1, S2 present. Regular rate and rhythm, sinus rhythm on telemetry. Palpable peripheral pulses bilaterally. Trace bilateral lower extremity edema present. - Gastrointestinal Gastrointestinal Comment(s): Abdomen soft, nontender, nondistended. Active bowel sounds 4 quadrants. Tolerating diet. - Genitourinary Genitourinary Comment(s): Continues to void. - Integumentary Integumentary Comment(s): Skin warm, dry, pink with evidence of good perfusion. - Neurologic Neurologic: Present: CNII-XII intact - Musculoskeletal Musculoskeletal: Present: gait normal, strength equal bilaterally - Psychiatric Psychiatric: Present: A&O x's 3, appropriate affect, intact judgment & insight - Allied health notes Allied health notes reviewed: nursing - Labs CBC & Chem 7: 10/09/17 05:37 10/10/17 06:22 Labs: Abnormal Lab Results - Last 24 Hours (Table) 10/09/17 10/09/17 10/09/17 Range/Units 11:33 16:10 20:52 Chloride (98-107) mmol/L Carbon Dioxide (22-30) mmol/L BUN (7-17) mg/dL Creatinine (0.52-1.04) mg/dL Glucose (74-99) mg/dL POC Glucose (mg/dL) 209 H 257 H 182 H (75-99) mg/dL 10/10/17 10/10/17 Range/Units 05:53 06:22 Chloride 96 L (98-107) mmol/L Carbon Dioxide 34 H (22-30) mmol/L BUN 68 H (7-17) mg/dL Creatinine 1.63 H (0.52-1.04) mg/dL Glucose 165 H (74-99) mg/dL POC Glucose (mg/dL) 182 H (75-99) mg/dL Microbiology - Last 24 Hours (Table) 10/08/17 13:00 Urine Culture - Final Urine,Voided Assessment and Plan (1) Tobacco dependence in remission Current Visit: Yes Status: Chronic Code(s): F17.201 - NICOTINE DEPENDENCE, UNSPECIFIED, IN REMISSION SNOMED Code(s): 763401932 (2) On home oxygen therapy Current Visit: Yes Status: Chronic Code(s): Z99.81 - DEPENDENCE ON SUPPLEMENTAL OXYGEN SNOMED Code(s): 221080660056 (3) Acute hypercapnic respiratory failure Current Visit: Yes Status: Acute Code(s): J96.02 - ACUTE RESPIRATORY FAILURE WITH HYPERCAPNIA SNOMED Code(s): 013059729 (4) History of hypertension Current Visit: No Status: Chronic Code(s): Z86.79 - PERSONAL HISTORY OF OTHER DISEASES OF THE CIRCULATORY SYSTEM SNOMED Code(s): 602806401 (5) Hypothyroid Current Visit: Yes Status: Chronic Code(s): E03.9 - HYPOTHYROIDISM, UNSPECIFIED SNOMED Code(s): 61773717 (6) Obesity (BMI 30-39.9) Current Visit: Yes Status: Chronic Code(s): E66.9 - OBESITY, UNSPECIFIED SNOMED Code(s): 783812022 (7) Severe mitral valve stenosis Current Visit: Yes Status: Chronic Code(s): I05.0 - RHEUMATIC MITRAL STENOSIS SNOMED Code(s): 10560703 (8) COPD (chronic obstructive pulmonary disease) Current Visit: Yes Status: Chronic Code(s): J44.9 - CHRONIC OBSTRUCTIVE PULMONARY DISEASE, UNSPECIFIED SNOMED Code(s): 85616106 (9) Diabetes Current Visit: Yes Status: Chronic Code(s): E11.9 - TYPE 2 DIABETES MELLITUS WITHOUT COMPLICATIONS SNOMED Code(s): 22008639 (10) Diastolic CHF Current Visit: Yes Status: Chronic Code(s): I50.30 - UNSPECIFIED DIASTOLIC ( CONGESTIVE) HEART FAILURE SNOMED Code(s): 043800220 Plan: 1. Continue aspirin, Plavix, Lasix, amiodarone, beta johanna. 2. Antibiotics, steroids per pulmonology. 3. Wean O2 as tolerated. Encourage incentive spirometry use. 4. Increase activity, ambulate as tolerated. 5. Encourage smoking cessation. 6. Medical comorbidities per primary care services. 7. Per patient's wishes, mitral valve surgery to be done at [facility]. May transfer to [facility] or discharge to home with follow-up with Dr. Caldwell and Dr. Scott. Time with Patient: Greater than 30
--- NOTE | 2017-10-10 09:30 | P.PN ---
Subjective Progress Note Date: 10/10/17 Principal diagnosis: Acute hypoxic respiratory failure, acute pulmonary edema, severe degree of mitral stenosis, history of follow-up chronic hypoxic respiratory failure on home oxygen, severe COPD with acute COPD exacerbation 10/10/2017, trace status stable patient is doing deep breathing exercises incentive spirometry she remains on 4 L oxygen sats are in low 90s to get short of breath on activity and exertion she still have mild generalized anasarca patient underwent a computed tomography scan of the chest ordered by thoracic surgery which is reviewed bilateral small to mild pleural effusion is seen interstitial edema is noted and extensive emphysema CHF-like finding were seen as well today to have a component of left atrial dilatation as well as the engorged plump pulmonary vasculature cystoscopy pulmonary hypertension number patient continued to express her desire to be discharged once is stable with follow-up on the outpatient basis with the Primary cardiothoracic surgery and grain packer 10/09/2017, patient seen and evaluated examined during the rounds she is undergoing breathing treatments she is off of BiPAP and supplemental oxygen she is breathing more comfortably she denies any chest pain, she has expressed now her desire to get the surgery done at [facility] overall his plasma she stabilized and then will be discharged home and she will follow up and go to her primary grain packer director microbiology and her cardiothoracic surgeon on her own October 08 2017, patient seen and evaluated examined during the rounds as per request of the RN S patient has acute onset of shortness of breath she has clearly audible wheezing she is very anxious tachypneic tachycardic I have advised to obtain a stat portable chest x-ray in addition to that 20 mg of extra IV Lasix has been given, Lasix which was given in the form of by mouth's been switched to IV as well, extra dose of IV Solu-Medrol is given patient is being started on BiPAP as well with further intervention as per finding above- mentioned test results and report care plan discussed with the nursing staff as well as family present at bedside at length, patient reevaluated again with good response to therapy able to get her off of BiPAP machine with improvement in respiratory status 10/07/2017, patient seen and evaluated examined during the rounds she is sitting upright on the bed breathing comfortably would get short of breath on minimal activity and exertion care plan discussed with the patient and primary service at length patient at this point I would like to proceed with the menstrual mitral valve replacement surgery over here she has declined Idea of going to [facility], in that regard meetings have been arranged to discuss these issues with cardiothoracic services. Patient is a 77-year-old female with a history of diastolic congestive heart failure, pulmonary hypertension, and severe mitral stenosis along with COPD who presented to the hospital via EMS for shortness of breath. When she arrived via EMS her oxygen saturation was 56% on CPAP. She was immediately intubated. Laboratory analysis revealed a white blood cell count of 18.1. INR 1.2. Potassium 5.2. Her creatinine was 1.15 which appeared to be at baseline and glucose was slightly elevated at 207. Chest x-ray revealed diffuse pulmonary edema. Urinalysis was negative. ABG revealed hypercapnic respiratory failure. She was given a dose of Lasix, Nitro-Bid, and aspirin. Patient has been admitted to ICU with full respiratory support I reviewed the radiographic finding from yesterday and today and compared, it appears that patient was in good state of health until about the recent event of acute onset of shortness of breath there was no history of night sweats or fever or chills no history of respiratory process, patient has a history of severe degree of mitral stenosis she is being evaluated for mitral valve replacement at [facility]. Patient's primary grain packer has been contacted by the ER physician who advised patient to be stabilized before consideration of transfer She typically wears oxygen at home at 3.5 L but she has been turning it up to 5 L to help. She is only able to ambulate a short distance before becoming extremely winded. She has been sleeping in a recliner at home. She also has a chronic cough. They report that she is supposed to be going in for evaluation of possible mitral valve replacement due to severe mitral stenosis. They report she has not seen her grain packer or primary care provider since things have been worsening in the last 2 weeks. They believe that there has been no acute changes in her medications. They would like her transferred to a hospital in Dr. Caldwell practices out of. We discussed that with her being recently intubated she is not stable enough for elective transfer at this point in time. They are in agreement with the plan to keep her here at this point. They do again reiterate that once she is stable they would like her transferred. Objective - Vital Signs Vital signs: Vital Signs Temp 96.2 F L 10/10/17 08:00 Pulse 78 10/10/17 09:01 Resp 18 10/10/17 08:51 BP 100/61 10/10/17 08:00 Pulse Ox 96 10/10/17 08:51 Intake & Output 10/09/17 10/10/17 10/10/17 18:59 06:59 18:59 Intake Total 840 20 240 Balance 840 20 240 Weight 84.5 kg Intake: IV 20 Sodium Chloride 0.9% 1, 20 000 ml @ 20 mls/hr IV . Q24H [facility] Rx#:[id number] Oral 840 240 Other: Voiding Method Bedpan - Exam General: ill appearing , moderate respiratory distress, slight use of accessory muscles, obese Skin: no unusual rashes/lesions no unusual ecchymoses, warm, dry Head: atraumatic, normocephalic, symmetric Eyes: anicteric sclera, pupils equal round reactive to light ENT: Nose and ears atraumatic, Neck: No thyromegaly, no cervical lymphadenopathy, trachea midline, supple Mouth: no lip lesion, mucus membranes moist Cardiovascular: S1S2 normal, with systolic murmur normal rate and rhythm, positive posterior tibial pulse bilateral, 1+ edema, capillary refill less than 2 seconds Lungs: bibasilar crackles in the lower chest with bilateral inspiratory and expiratory wheezing Abdominal: soft, nontender to palpation, no guarding, no appreciable organomegaly, normal bowel sounds Ext: Bilateral trace ankle edema seen, no tenderness noted anymore. no gross muscle atrophy, no contractures, no clubbing or deformities. Neuro: Alert and oriented X3, non-focal. - Labs CBC & Chem 7: 10/09/17 05:37 10/10/17 06:22 Labs: Abnormal Lab Results - Last 24 Hours (Table) 10/09/17 10/09/17 10/09/17 Range/Units 11:33 16:10 20:52 Chloride (98-107) mmol/L Carbon Dioxide (22-30) mmol/L BUN (7-17) mg/dL Creatinine (0.52-1.04) mg/dL Glucose (74-99) mg/dL POC Glucose (mg/dL) 209 H 257 H 182 H (75-99) mg/dL 10/10/17 10/10/17 Range/Units 05:53 06:22 Chloride 96 L (98-107) mmol/L Carbon Dioxide 34 H (22-30) mmol/L BUN 68 H (7-17) mg/dL Creatinine 1.63 H (0.52-1.04) mg/dL Glucose 165 H (74-99) mg/dL POC Glucose (mg/dL) 182 H (75-99) mg/dL Microbiology - Last 24 Hours (Table) 10/08/17 13:00 Urine Culture - Final Urine,Voided - Imaging and Cardiology CT scan - chest: report reviewed, image reviewed Assessment and Plan Assessment: Acute pulmonary edema likely related to severe degree of mitral stenosis Acute hypoxic respirator failure related to above Non-STEMI less likely will repeat the troponins Leukocytosis likely related to acute pulmonary edema doubt infectious process however we'll monitor observe radiographically and we'll continue to hold antibiotics Severe degree of mitral stenosis Right greater than left pleural effusions Sputum positive for moraxella catarrahlis - tracheobronchitis Acute exacerbation of COPD Bibasilar atelectasis NSTEMI DM2 Hypertension Hypothyroidism CKD3 ASCAD with history of PCI Anemia, normocytic Plan: Continue on beta blockers Gentle diuretics , BiPAP as needed DVT and peptic ulcer disease prophylaxis: Lovenox, and Protonix Continue patient on supportive care Breathing treatments Consult Dr. Scott Reviewed ultrasound chest to assess for possible thoracentesis, small amount of fluid is present we'll hold on doing thoracentesis Clear liquid diet Titrate O2 to maintain sat > or = 90% ABX: Levaquin for moraxella infection I/O, daily weight Cardiology recommendations Blood sugar, blood pressure control Cancel plan for transfer to [place] as per family/patient request, patient would like to proceed with mitral valvular replacement surgery in this institute. Continue use BiPAP as needed continue current care noted her plans for more definitive intervention and mitral valve surgery at [facility] [place] Time with Patient: Greater than 30 (CT chest findings reviewed noted as above)
[2017-10-10] MEDS: POLYETHYLENE GLYCOL 3350 17 GM POWD.PACK PO SCH (10:20)
--- NOTE | 2017-10-10 11:15 | P.DS ---
Providers Date of admission: 10/04/17 18:57 Expected date of discharge: 10/10/17 Attending physician: Ezekiel Fernandez MD Consults: 10/04/17 18:42 Consult Physician Stat Consulting Provider: Silvio Medina Consult Reason/Comments: Critical care, respiratory failure Do you want consulting provider notified?: Already Contacted Consult Physician Urgent Consulting Provider: Waqas Neves Consult Reason/Comments: Pulmonary edema, respiratory failure, mitral stenosis Do you want consulting provider notified?: Yes 10/06/17 12:06 Consult Physician Urgent Consulting Provider: Yousuf Scott Consult Reason/Comments: chf, mitral valve regurg Do you want consulting provider notified?: Yes Primary care physician: Physician Nonstaff Hospital Course: 77-year-old female with a history of diastolic congestive heart failure, pulmonary hypertension, and severe mitral stenosis along with COPD who presented to the hospital via EMS for shortness of breath. Her family reported that she is having significant shortness of breath limiting her baseline activities worsening for the last 2 weeks. She has also had increasing lower extremity edema. She typically wears oxygen at home at 3.5 L but she has been turning it up to 5 L to help. She was only able to ambulate a short distance before becoming extremely winded. She has been sleeping in a recliner at home. 2 years ago patient was advised to have surgery for mitral valve replacement due to severe mitral stenosis as well as regurgitation but patient refused to go through with surgery. When she arrived via EMS her oxygen saturation was 56% on CPAP. She was immediately intubated. Laboratory analysis revealed a white blood cell count of 18.1. INR 1.2. Potassium 5.2. Her creatinine was 1.15 which appeared to be at baseline and glucose was slightly elevated at 207. Chest x-ray revealed diffuse pulmonary edema. Urinalysis was negative. ABG revealed acute hypercapnic hypoxic respiratory failure. She was given a dose of Lasix, Nitro- Bid, and aspirin. Her primary creative services director was contacted by the ER physician and he recommended maximizing beta johanna therapy. Patient was subsequently admitted to the ICU for further evaluation and management. She was diagnosed with acute exacerbation of cor pulmonale with severe mitral stenosis, was treated with lasix 40 twice daily IV. Metoprolol was maximized at 50mg tid. ACEI was held due to increased K+ and worsening renal function. EKG showed sinus tachycardia without acute ST or T-wave changes. Trops and BNP were both WNL. Myocardial infarction based on that was excluded. She remained on the vent for a couple of days and subsequently she was extubated successfully. She required BiPAP on and off after the extubation but successfully made it without re-intubation in the subsequent days. He was seen by cardiology who concurred with the above management. She had an echocardiogram that showed normal ejection fraction, mitral stenosis and regurgitation as well as severe LA dilation. She was also evaluated by pulmonary service who had his steroids and nebulizers to her regimen due to history of COPD. Due to the leukocytosis she has blood cultures and sputum cultures. The blood cultures remained negative but the sputum cultures grew Moraxella catarrhalis. Because of that she was treated with Levaquin. She also had acute gout attack and her left ankle during the hospitalization likely due to large doses of Lasix. The gout was treated with steroids. During the hospitalization her oral hypoglycemic agents were held and she was treated with subcu insulin. Due to declining renal function IV diuresis was scaled down and the ARLENE inhibitor was held. Today patient had a walking saturations test and that showed O2 sats in the upper 80s with walking but quickly normalized upon rest. Patient was keen to go home today. She will be given a slip for BMP check on Saturday. She was instructed to follow-up with CT surgery, cardiology, pulmonary as well as her primary care physician as soon as possible after discharge. Time for discharge 40 minutes. Patient Condition at Discharge: Critical Plan - Discharge Summary Discharge Rx Participant: Yes New Discharge Prescriptions: New Aspirin 81 mg PO DAILY 30 Days #30 chew Furosemide [Lasix] 40 mg PO DAILY 30 Days #30 tablet Levofloxacin [Levaquin] 250 mg PO Q24H 7 Days #7 tab methylPREDNISolone Dose Pack [Medrol Dose Pack] 4 mg PO DIRECTED #21 package Metoprolol Tartrate [Lopressor] 50 mg PO TID 30 Days #90 tab Continue Calcium Carb-Vit D 500Mg-200Un [Oscal 500+D] 1 tab PO DAILY metFORMIN HCL [Glucophage] 500 mg PO TID Levothyroxine Sodium [Synthroid] 175 mcg PO DAILY Albuterol Sulfate [Ventolin HFA] 2 puff INHALATION RT-TID PRN PRN Reason: Shortness Of Breath Amiodarone [Cordarone] 200 mg PO BID #60 tab Glimepiride [[facility]maryl] [facility] Clopidogrel [Plavix] 75 mg PO DAILY Allopurinol [Zyloprim] 100 mg PO DAILY Discontinued Lisinopril/Hydrochlorothiazide [Lisinopril-Hctz 10-12.5 mg Tab] 1 tab PO DAILY Discharge Medication List Albuterol Sulfate [Ventolin HFA] 2 puff INHALATION RT-TID PRN 06/02/15 [History] Calcium Carb-Vit D 500Mg-200Un [Oscal 500+D] 1 tab PO DAILY 06/02/15 [History] Levothyroxine Sodium [Synthroid] 175 mcg PO DAILY 06/02/15 [History] metFORMIN HCL [Glucophage] 500 mg PO TID 06/02/15 [History] Amiodarone [Cordarone] 200 mg PO BID #60 tab 07/31/15 [Rx] Allopurinol [Zyloprim] 100 mg PO DAILY 10/04/17 [History] Clopidogrel [Plavix] 75 mg PO DAILY 10/04/17 [History] Glimepiride [Amaryl] 4 mg PO [id number] 10/04/17 [History] Aspirin 81 mg PO DAILY 30 Days #30 chew 10/10/17 [Rx] Furosemide [Lasix] 40 mg PO DAILY 30 Days #30 tablet 10/10/17 [Rx] Levofloxacin [Levaquin] 250 mg PO Q24H 7 Days #7 tab 10/10/17 [Rx] Metoprolol Tartrate [Lopressor] 50 mg PO TID 30 Days #90 tab 10/10/17 [Rx] methylPREDNISolone Dose Pack [Medrol Dose Pack] 4 mg PO DIRECTED #21 package 10/10/17 [Rx] Follow up Appointment(s)/Referral(s): Manoj Ramírez MD [STAFF PHYSICIAN] - 10/16/17 1:00 pm Dajuan Caldwell DO [REFERRING] - 1 Week (Pt to call and make appointment per her request) James Hooks MD [REFERRING] - 10/11/17 12:00 pm (previously scheduled appointment)
[2017-10-10 11:27] LABS: Glucose,Whole Blood 224 mg/dL (75-99)
[2017-10-10 11:53] VITALS: BP 99/54; TEMP 98.1
[2017-10-10] MEDS: LEVOFLOXACIN 250 MG TAB PO SCH (12:13)
[2017-10-10 12:56] VITALS: PULSE 80; RESP 18
[2017-10-10 14:26] VITALS: BMI 31.9
--- NOTE | 2017-10-10 14:57 | P.PN ---
Subjective Progress Note Date: 10/10/17 Principal diagnosis: Severe mitral stenosis This is a 77-year-old female with history of severe mitral stenosis, who presented to the hospital with respiratory failure. She was transferred out of the intensive care unit and is now being followed on the selective care unit. Patient was seen and examined this morning, complaining of feeling very tired, quite short of breath today as well. Chest x-ray performed today showed worsening bibasilar infiltrates, pulmonary edema. Small right and minimal left pleural effusion. Patient continues to be on IV Lasix. Blood pressure 91/57, heart rate in the 70s, 100% on 4 L of oxygen. White blood cell count 13.6, hemoglobin 10.2, sodium 138, potassium 3.9, BUN 47, creatinine 1.6. Magnesium level I.9. 10/09/2017 Patient seen and examined this morning, overall doing better today. She did require BiPAP yesterday, overall saturations are much improved today. Patient doesn't need to have her up and mitral valve surgery and she still wishes to have this done at [facility]. Our recommendation is a possible discharge home soon, and patient needs to follow-up with [facility] as soon as possible. 10/10/2017 Seen and examined this morning, sitting up in the chair at bedside. Significantly better overall today. Arrangements are being made for discharge. She has been instructed strongly regarding the importance of following up at [facility] for surgery. Objective - Vital Signs Vital signs: Vital Signs Temp 98.1 F 10/10/17 11:48 Pulse 80 10/10/17 13:04 Resp 18 10/10/17 12:53 BP 99/54 10/10/17 11:48 Pulse Ox 98 10/10/17 11:48 Intake & Output 10/09/17 10/10/17 10/10/17 18:59 06:59 18:59 Intake Total 840 20 240 Balance 840 20 240 Weight 84.5 kg 84.5 kg Intake: IV 20 Sodium Chloride 0.9% 1, 20 000 ml @ 20 mls/hr IV . Q24H [facility] Rx#:[id number] Oral 840 240 Other: Voiding Method Bedpan # Voids 1 - Exam PHYSICAL EXAMINATION: HEENT: Head is atraumatic, normocephalic. Pupils equal, round. Neck is supple. There is no elevated jugular venous pressure. HEART EXAMINATION: Heart S1 and S2 systolic murmur heard as well as a diastolic rumble CHEST EXAMINATION: Lungs reveal improvement in air entry bilaterally ABDOMEN: Soft, nontender. Bowel sounds are heard. No organomegaly noted. EXTREMITIES: 2+ peripheral pulses with evidence of peripheral edema and no calf tenderness noted. NEUROLOGIC patient is awake, alert and oriented -3. . - Labs CBC & Chem 7: 10/09/17 05:37 10/10/17 06:22 Labs: Abnormal Lab Results - Last 24 Hours (Table) 10/09/17 10/09/17 10/10/17 Range/Units 16:10 20:52 05:53 Chloride (98-107) mmol/L Carbon Dioxide (22-30) mmol/L BUN (7-17) mg/dL Creatinine (0.52-1.04) mg/dL Glucose (74-99) mg/dL POC Glucose (mg/dL) 257 H 182 H 182 H (75-99) mg/dL 10/10/17 10/10/17 Range/Units 06:22 11:25 Chloride 96 L (98-107) mmol/L Carbon Dioxide 34 H (22-30) mmol/L BUN 68 H (7-17) mg/dL Creatinine 1.63 H (0.52-1.04) mg/dL Glucose 165 H (74-99) mg/dL POC Glucose (mg/dL) 224 H (75-99) mg/dL Microbiology - Last 24 Hours (Table) 10/08/17 13:00 Urine Culture - Final Urine,Voided Assessment and Plan Plan: Assessment and plan #1 respiratory failure status post mechanical ventilation #2 severe mitral stenosis, being evaluated for surgical intervention, patient wishes to have this performed at [facility]. #3 COPD #4 diastolic congestive heart failure acute on chronic #5 nicotine dependence #6 questionable pneumonia on chest x-ray Plan Cardiology's perspective, we'll recommend to continue current dose of IV Lasix for 24 hours, plan for possible discharge home soon, patient has been instructed to follow-up at [facility] for her surgery soon after discharge. DNP note has been reviewed, I agree with a documented findings and plan of care. Patient was seen and examined.
[2017-10-12] MEDS ORDERED: predniSONE 20 MG TAB PO SCH (09:00)
== END 2017-10-10 15:36 | disposition home or self-care (01) | DRG 291 ==
LOC: EC 16:38 → 6ICU 18:57 → 6SEL 10-07 22:46
PROVIDERS: ADMIT Internal Medicine; ATTEND Internal Medicine
PROC: 5A1935Z Respiratory Ventilation, Less than 24 Consecutive Hours (ICD-10-PCS; principal; 2017-10-04)
DX: I13.0 Hypertensive heart and chronic kidney disease with heart failure and stage 1 through stage 4 chronic kidney disease, or unspecified chronic kidney disease (principal); I50.33 Acute on chronic diastolic (congestive) heart failure; J96.21 Acute and chronic respiratory failure with hypoxia; E11.22 Type 2 diabetes mellitus with diabetic chronic kidney disease; J96.22 Acute and chronic respiratory failure with hypercapnia; J44.1 Chronic obstructive pulmonary disease with (acute) exacerbation; J98.11 Atelectasis; E87.5 Hyperkalemia; D64.9 Anemia, unspecified; E03.9 Hypothyroidism, unspecified; E66.9 Obesity, unspecified; E78.5 Hyperlipidemia, unspecified; F17.211 Nicotine dependence, cigarettes, in remission; I25.10 Atherosclerotic heart disease of native coronary artery without angina pectoris; I27.29 Other secondary pulmonary hypertension; I27.81 Cor pulmonale (chronic); I34.0 Nonrheumatic mitral (valve) insufficiency; K59.00 Constipation, unspecified; M10.9 Gout, unspecified; N18.3 Chronic kidney disease, stage 3 (moderate); R74.8 Abnormal levels of other serum enzymes; D72.829 Elevated white blood cell count, unspecified; Z68.36 Body mass index [BMI] 36.0-36.9, adult; Z99.81 Dependence on supplemental oxygen; Z98.61 Coronary angioplasty status; Z96.651 Presence of right artificial knee joint; Z79.02 Long term (current) use of antithrombotics/antiplatelets; Z79.84 Long term (current) use of oral hypoglycemic drugs; Z79.899 Other long term (current) drug therapy; Z88.8 Allergy status to other drugs, medicaments and biological substances; Z91.041 Radiographic dye allergy status; Z82.49 Family history of ischemic heart disease and other diseases of the circulatory system
CPT/HCPCS: 31500; 36415; 36600; 43753; 71045; 71250; 76604; 80048; 80053; 81001; 82550; 82553; 82805; 83036; 83735; 83880; 84100; 84443; 84484; 85025; 85610; 85730; 87070; 87086; 87205; 93005; 93306; 94002; 94003; 94640; 94660; 94760; 96374; 96375; 99291